=== PATIENT | male | born 1955 | race Caucasian/White ===

== ENCOUNTER 2019-08-02 07:38 | Inpatient (IN) | payer MEDICARE, OTHER, SELFPAY ==
[2019-08-02] VITALS (12 sets, daily range): BP systolic 106–139; BP diastolic 70–97; PULSE 45–83; RESP 14–20; TEMP 36.6–36.9; O2SAT 94–98; BMI 19.5
--- NOTE | ~2019-08-02 | MR_ITS ---
EXAMINATION: MR brain/brain stem wo/w con EXAM DATE: 08/02/2019 16:30 INDICATION: Altered level of awareness, infarction. TECHNIQUE: Magnetic resonance imaging (MRI) of the brain/brain stem obtained without contrast. Sagit linus T1, axial diffusion, gradient echo (T2*), T1, T2, FLAIR sequences obtained. Patient was then inj ected with 12 cc intravenous Multihance contrast. Axial and coronal postcontrast T1 weighted sequence s obtained. Comparison is made to prior examination from 03/23/2017. FINDINGS: There is large acute infarction in the right temporoparietal occipital lobes, with approxim ately 50% infarction of the right middle cerebral artery posterior distribution. There is small acute infarction in the left occipital lobe, likely at least several hours older than the larger right-edna ed infarction given that it is visible on the head CT which was obtained earlier same date. There is small old right frontoparietal lobe infarction. Mild to moderate microangiopathy and cerebral atrophy . No acute hemorrhage. IMPRESSION: 1. Large acute right MCA distribution infarction. 2. Small acute left BUSINESS DATA ANALYST distribution infarction. 3. Old small right frontoparietal infarction. 4. Age-related findings. Reviewed, dictated and finalized at location A.
--- NOTE | ~2019-08-02 | CT_ITS ---
EXAMINATION: CT brain wo con DATE: 08/02/2019 07:47 INDICATION: Left hemiparesis. TECHNIQUE: Computed tomography (CT) of the head was performed without intravenous contrast. The mA wa s adjusted according to patient size. Iterative reconstruction technique was employed. The dose-lengt h product was 605.33 mGy-cm. COMPARISON: Head CT 09/15/2018 FINDINGS: There is an old infarct in right frontoparietal region. There is an infarct in left occipit al lobe. There are scattered areas of low attenuation in the cerebral white matter. There is no intra cranial hemorrhage or abnormal mass lesion. The ventricles are normal in size. There is mild mucosal thickening in sphenoid sinus. The mastoid air cells are normal. The orbits are normal. IMPRESSION: 1. Infarct in left occipital lobe, likely acute. I called this result to Dr. Piper on 08/02/19 at 7:5 1 AM. 2. Old infarct in right frontoparietal region. 3. Mild nonspecific cerebral white matter disease, which likely represents chronic small vessel ische corinne disease. Reviewed, dictated and finalized at location A. IMPRESSION: 1. Infarct in left occipital lobe, likely acute. I called this result to Dr. Jai hall on 08/02/19 at 7:51 AM. 2. Old infarct in right frontoparietal region. 3. Mild nonspecific cerebral white matter disease, which likely represents cafeteria or lunchroom checker bell small vessel ischemic disease.
--- NOTE | ~2019-08-02 | XR_ITS ---
XR chest 1V portable DATE: 08/02/2019 08:27 INDICATION: Possible cerebrovascular accident TECHNIQUE: Portable upright AP chest on 08/02/2019 at 0824 hours COMPARISON: 09/15/2018 portable upright AP chest FINDINGS: vice president compliance device overlies the lower left chest. Heart size is not optimally evaluated on AP projection because of magnification. Aortic calcification and mild unfolding. Bilateral hyperinflation. No pulmonary infiltrate or consolidation, pleural effusion or pulmonary vas cular congestion or pneumothorax is evident. Diffuse osteopenia. IMPRESSION: No active disease Reviewed, dictated and finalized at location A. IMPRESSION: No active disease
--- NOTE | ~2019-08-02 | US_ITS ---
EXAMINATION: US carotid duplex BI DATE: 08/02/2019 15:14 INDICATION: Left hemiparesis. TECHNIQUE: Grayscale, color Doppler, and pulsed Doppler images of the cervical carotid arteries were obtained. The degree of vessel stenosis is placed in one of the following categories: normal, <50%, 5 0-69%, >=70% but less than near-occlusion, near-occlusion, or total occlusion. Note that percent sten osis relative to normal distal artery lumen diameter is indirectly measured from velocity measurement s as described by Shon, et al. Radiology 2003; [id number]:[id number]. COMPARISON: Ultrasound 03/23/2017 FINDINGS: RIGHT: The right common carotid artery (CCA) peak systolic velocity (PSV) is 68 cm/s. The right internal car otid artery (ICA) PSV is 65 cm/s. The right ICA end-diastolic velocity (EDV) is 23 cm/s. The right IC A/CCA PSV ratio is 1.0. Grayscale and color Doppler images yield an estimate of <50% diameter reducti on from plaque in the ICA. There is antegrade flow in the right vertebral artery. LEFT: The left CCA PSV is 70 cm/s. The left ICA PSV is 62 cm/s. The left ICA EDV is 22 cm/s. The left ICA/C CA PSV ratio is 0.9. Grayscale and color Doppler images yield an estimate of <50% diameter reduction from plaque in the ICA. There is antegrade flow in the left vertebral artery. IMPRESSION: 1. <50% stenosis in the right internal carotid artery. 2. <50% stenosis in the left internal carotid artery. Reviewed, dictated and finalized at location A.
--- NOTE | 2019-08-02 07:40 | ECG_ITS ---
Measurements Intervals [place] Rate: 49 P: 27 PA: 158 QRS: 7 QRSD: 105 T: 56 QT: 472 QTc: 428 Interpretive Statements SINUS BRADYCARDIA BASELINE ARTIFACT- I, III, AVL, AVF, V1-V2 ABNORMAL ECG Electronically Signed On 08-02-2019 8:53:39 CDT by Sorin Obrien D.O.
--- NOTE | 2019-08-02 07:59 | ED.NEUROSD ---
HPI - Neuro Symptoms/Deficit General Chief Complaint: Suspected CVA Stated Complaint: ?CVA Time Seen by Provider: 08/02/19 07:45 History of Present Illness HPI Narrative: Patient is a 64-year-old male who presents the ER with concerns of acute stroke. Patient has history of CVA and TIA in the past. He has some chronic left arm weakness since a stroke several years ago. He has been reporting to his significant other that he has been having some intermittent left arm weakness over the last 2 weeks more than typical. Last known normal was it 0 last night when patient got up to use the restroom. This morning patient awoke with a headache and was trying to open his tramadol bottle and could not perform the task. Patient has chronic headaches from his previous stroke. Patient significant other noticed that he could not recognize where she was in the room and proceeded to call EMS. Patient sees neurology here at [facility]. He is on Keppra for seizure disorder. Related Data Home Medications Medication Instructions Recorded Confirmed aspirin 325 mg tablet 325 mg PO DAILY 03/01/19 08/02/19 gabapentin 600 mg tablet 600 mg PO BID 03/01/19 08/02/19 levetiracetam 250 mg tablet See Rx Instructions .ROUTE .COMPLEX 03/01/19 08/02/19 sertraline 100 mg tablet 200 mg PO DAILY 03/01/19 08/02/19 simvastatin 40 mg tablet 40 mg PO DAILY 03/01/19 08/02/19 tamsulosin 0.4 mg capsule 0.4 mg PO DAILY 03/01/19 08/02/19 albuterol sulfate [ProAir HFA] 2 puff INHALATION Q4H PRN 08/02/19 08/02/19 aripiprazole 5 mg PO DAILY 08/02/19 08/02/19 tramadol 50 mg PO BID PRN 08/02/19 08/02/19 Allergies Allergy/AdvReac Type Severity Reaction Status Date / Time Penicillins Allergy Unknown unk Verified 08/02/19 08:15 Review of Systems Review of Systems: All systems reviewed & are unremarkable except as noted in HPI and below Neurologic: Reports headache(s) and Reports weakness (Chronic left side) Comments: Neglect worse on left than right [facility] Past Medical History Medical History (Updated 08/02/19 @ 17:12 by Rachel Talley PA-C) Benign prostatic hyperplasia Cerebrovascular accident (~03/2017) 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 Chronic obstructive pulmonary disease Degenerative disc disease Depression with anxiety Essential hypertension Gastroesophageal reflux disease Hyperlipidemia Seizure disorder (~07/2016) Tobacco abuse Surgical History Surgical History (Updated 08/02/19 @ 17:07 by Rachel Talley PA-C) History of inguinal hernia repair History of lumbar surgery (~03/2016) History of tonsillectomy History of vocal cord polypectomy Family History Family History Mother Hypertension Acute myocardial infarction Sibling Acute myocardial infarction Family history of lung cancer Father Acute myocardial infarction Social History Social History (Updated 08/02/19 @ 17:08 by Rachel Talley PA-C) Social History: The patient lives in [place] with his significant other. He is and has 5 children. 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 He smokes about half a pack of cigarettes per day and has for almost 50 years. He denies alcohol and illicit substance use. Years smoked: 40 Smoking status: Current every day smoker Tobacco type: cigarettes Second hand tobacco smoke exposure: No Smoking end date: 03/03/16 Alcohol intake: never Substance use: never Substance use type: does not use Gender identity (if verbalized by the patient): Male Spiritual care concerns: No Exam Narrative: Exam Narrative: GENERAL: Chronically ill-appearing, well-nourished, and in no acute distress. HEAD: Normocephalic, atraumatic. EYES: PERRL and EOMI. ENT: Mucous membranes moist. CHEST: Clear to auscultation. No respiratory distress. HEART: Bradycardic and regula
[2019-08-02 08:08] LABS: Glucose Point of Care 89 (65-105)
[2019-08-02 08:13] LABS: Basophils Absolute Auto 0.1 K/mm3 (0.0-0.1); Basophils Percent Auto 1.3 % (0.2-1.2); Eosinophils Absolute Auto 0.2 K/mm3 (0-0.3); Eosinophils Percent Auto 4.3 % (0-4.4); Hematocrit 43.9 % (42.0-52.0); Hemoglobin 14.5 g/dL (14.0-18.0); Immature Granulocyte Absolute 0.01 K/mm3 (0.00-0.031); Immature Granulocyte Percent A 0.2 % (0-0.5); Lymphocytes Absolute Auto 1.36 K/mm3 (0.9-3.2); Lymphocytes Percent Auto 24.4 % (18.3-44.2); Mean Corpuscular Volume 90.9 fl (80-100); Mean Platelet Volume 9.3 fl (7.4-10.4); Monocytes Absolute Auto 0.4 K/mm3 (0.1-0.6); Monocytes Percent Auto 7.5 % (2.6-8.5); Neutrophils Absolute Auto 3.5 K/mm3 (1.3-6.7); Neutrophils Percent Auto 62.3 % (45.5-73.1); Platelet Count Result 305 k/mm3 (150-375); Red Blood Count 4.83 M/mm3 (4.6-6.20); Red Cell Distribution Width 11.9 % (11.5-14.5); White Blood Count 5.6 K/mm3 (4.5-10.0)
[2019-08-02 08:21] LABS: Prothrombin Time 12.4 Seconds (11.1-14.7)
[2019-08-02 08:22] LABS: Partial Thromboplastin Time 27.5 SECONDS (22.3-36.8)
[2019-08-02 08:24] LABS: Blood Urea Nitrogen 13 mg/dL (9-20); Carbon Dioxide 29 mmol/L (22-30); Chloride 99 mmol/L (98-107); Estimated Glomerular Filt Rate > 60; Glucose 82 mg/dL (75-110); Potassium 4.1 mmol/L (3.4-5.0); Sodium 135 mmol/L (137-145)
[2019-08-02 08:36] LABS: Troponin I < 0.012 ng/mL (0.000-0.034)
[2019-08-02] MEDS: CLOPIDOGREL BISULFATE 75 MG TABLET PO (09:28)
[2019-08-02] MEDS: ASPIRIN 325 MG ENTERIC TABLET PO (09:28)
--- NOTE | 2019-08-02 10:50 | ADMGEN ---
This patient, Cem Osman, was admitted to Medical Room 252-. Patient/family oriented to hospital policies and general routines including ID bracelet, bed and alarms, visiting hours, pain management, procedures, bathroom and other care routines, personal items, smoking policy, room service/diet, and visiting hours. Valuables list has been completed. Information on how to activate the Rapid Response Team has been discussed. Patient/Family are encouraged to report perceived risks to care and to ask questions if they do not understand what they are told or what they should do.
--- NOTE | 2019-08-02 14:31 | CONS_ITS ---
DATE OF CONSULTATION: 08/02/2019 HISTORY OF PRESENT ILLNESS: A 64-year-old right-handed male has been admitted to [facility] through the emergency room, where he presented with complaint of possibility of the stroke. The patient has ongoing history of left upper extremity weakness since the last stroke several years ago, but he has been reporting to significant other that his left upper extremity is intermittently becoming more weak. His last known normal was 2130 last night when patient got up to use the restroom and also complained of the headache. He was trying to open his tramadol bottle, but could not perform the task. He was unable to recognize where he was in the room and EMS was called to the scene. He was brought to the hospital. MEDICATIONS: He has been takin. Aspirin 325 mg daily. 2. Gabapentin 600 mg 3 times a day. 3. Levetiracetam 250 mg twice a day. 4. Multivitamin 1 tablet daily. 5. Sertraline 100 mg 2 of them daily. 6. Simvastatin 40 mg daily. 7. Tamsulosin 0.4 mg daily. 8. Aripiprazole daily. 9. Tramadol b.i.d. on p.r.n. basis. He has history of smoking 50 years. At present, he is not smoking. From the emergency room, a call was placed to the [facility] for the possibility of TPIA and it was recommended not to give him tPA. PHYSICAL EXAMINATION: VITAL SIGNS: His vital signs were stable with temp of 98.5, pulse 50, respirations 16, blood pressure 113/83, pulse ox 98%. GENERAL: He was awake, alert, cooperative, in no obvious acute distress. HEENT: Head was normocephalic with no cranial bruit. Ear, nose, throat examination was normal. NECK: Supple with no cervical bruit. No thyromegaly. No lymphadenopathy. HEART: Regular. LUNGS: Clear. ABDOMEN: Soft. NEUROLOGICAL: He was awake, alert, able to follow the verbal commands. His speech was not dysphasic, not dysarthric, not dysphonic. Pupils were round and regular. Olivares of vision were abnormal with questionable right-sided visual field cut. In addition, his pupils were round and regular. Extraocular movements full. Face symmetrical. Tongue midline. Motor examination revealed him to have left-sided weakness with hyperreflexia, upgoing plantar response. LABORATORY DATA: WBC 5.6, hemoglobin 14.5, platelet count 305. Normal basic metabolic panel. He was admitted to the hospital for further evaluation. His INR was only 1.0 with APTT of 27.5. At the time of admission to the hospital, he was taking multiple medications as outlined above. Evaluation up until now included also the CT scan of the head, which documented the left occipital infarct, acute in nature in addition to the old infarct in the right frontoparietal region with nonspecific white matter disease. IMPRESSION: History of right frontoparietal stroke in the past with finding of the left occipital stroke at this particular time. The patient will need a CTA as well as the echocardiogram and most likely Cardiology consultation, if the echocardiogram is suggestive of some abnormalities. In the meantime, he has been started on clopidogrel 75 mg daily and aspirin was given 325 mg in the emergency room and will be continued as such for the time being. EMY ULLOA M.D. CLIENT BUSINESS MANAGER CLIENT BUSINESS MANAGER D I MT: Jammie
[2019-08-02 15:36] LABS: Glucose Point of Care 85 (65-105)
[2019-08-02] MEDS: TRAMADOL HCL 50 MG TABLET PO (16:41)
[2019-08-02] MEDS: GABAPENTIN 300 MG CAPSULE 600 MG PO (17:34)
--- NOTE | 2019-08-02 18:45 | PM.IMHP ---
H&P: HPI History of Present Illness Chief complaint: ?Possible stroke.? Narrative: Cem Osman is a 64-year-old male smoker with history of right frontoparietal CVA in March 2017 with unremarkable workup, seizure disorder, hypertension, hyperlipidemia, and COPD who presented to the emergency department earlier today with concerns of a possible stroke. He has chronic left upper extremity weakness since his stroke in March 2017, however he perceives it to be intermittently more weak than usual for the past 2 weeks or so. This morning he awoke with a headache and he notes having a difficult time at when trying to open a prescription bottle of tramadol. His girlfriend also notes that he seemed disoriented but he is alert and oriented x 4. At the time of my evaluation, he mentions a nonspecific headache that has apparently been present for 3 days. He does not seem forthcoming or perhaps he is having a difficult time expressing is complaints. For instance, he tells me that his left arm seems to know be back at baseline and says he has no other symptoms. Unfortunately, he seems to be neglecting his left side and cannot move his eyes even to midline. I did not have him walk but the nurses relay to me that he needed 2 people to assist him to the bathroom due to unsteady gait. Although physical exam contradicts this, he denies visual changes, vertigo, paresthesias, and worsening left upper extremity weakness. Review of Systems Review of Systems: Narrative: Twelve systems were reviewed with pertinent positives and negatives as per HPI. I am not certain these are very accurate, as he denies findings under obviously present. No fever, chills, or sweats. He denies recent cold and flu symptoms. He denies chest pain. No palpitations, feelings of irregular heartbeat, or history of cardiac dysrhythmia. He has a loop recorder in situ. No nausea, vomiting, or diarrhea. Denies dysuria. Except as documented, all other systems were reviewed and are negative. 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 Chronic obstructive pulmonary disease Degenerative disc disease Depression with anxiety Essential hypertension Gastroesophageal reflux disease Hyperlipidemia Seizure disorder (~07/2016) Tobacco abuse Surgical History Surgical History (Updated 08/02/19 @ 17:07 by Rachel Talley PA-C) History of inguinal hernia repair History of lumbar surgery (~03/2016) History of tonsillectomy History of vocal cord polypectomy Family History Family History Mother Hypertension Acute myocardial infarction Sibling Acute myocardial infarction Family history of lung cancer Father Acute myocardial infarction Social History Social History (Updated 08/02/19 @ 21:24 by Rachel Talley PA-C) Social History: The patient lives in [place] with his significant other. He is and has 5 children. 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 He smokes about 1/3 of a pack of cigarettes per day and has for almost 50 years. He denies alcohol and illicit substance use. He designates his girlfriend, Ann-Marie Hoang, as his surrogate decision maker and he wishes to be a do not resuscitate. Spiritual care concerns: No Meds Home Medications and Allergies Home Medications Medication Instructions Recorded Confirmed Type aspirin 325 mg tablet 325 mg PO DAILY 03/01/19 08/02/19 History gabapentin 600 mg tablet 600 mg PO BID 03/01/19 08/02/19 History levetiracetam 250 mg tablet See Rx Instructions .ROUTE .COMPLEX 03/01/19 08/02/19 History sertraline 100 mg tablet 200 mg PO DAILY 03/01/19 08/02/19 History simvastatin 40 mg tablet 40 mg PO DAILY 03/01/19 08/02/19 Hist
[2019-08-02] MEDS: levETIRAcetam 250 MG TABLET PO (21:00)
[2019-08-02] MEDS: FLUTICASONE PROP 110 MCG INHALER 12 GM (*SP) 1 PUFF INHALATION (21:09)
[2019-08-02] MEDS: levETIRAcetam 500 MG TABLET PO (21:12)
[2019-08-03] VITALS (13 sets, daily range): BP systolic 105–134; BP diastolic 63–86; PULSE 59–96; RESP 14–20; TEMP 36.8–37.6; O2SAT 95–98
--- NOTE | 2019-08-03 | ECHO_ITS ---
Patient Info Name: Cem Osman Age: 64 years : 1955 Gender: Male Ht: 74 in Wt: 152 lbs BSA: 1.88 m2 HR: 90 bpm BP: 134 / 86 mmHg Heart Rhythm: Sinus Rhythm Technical Quality: Poor Exam Date: 08/03/2019 10:28 AM Exam Location: [facility] Pulmonary Patient Status: Inpatient Admit Date: 08/02/2019 Staff Ordering Physician: Rachel Talley PA-C C4 Planner: Regis Sommers RDCS Attending Provider: Jose Rushing MD Referring Physician: Mayank MARIANO; Exam Type: CA echo doppler w bubble study Study Info Indications 436.0 - CVA Complete two-dimensional, color flow and Doppler transthoracic echocardiogram is performed with agitated saline. Contrast/Agitated Saline Contrast/Ag. Saline: Agitated Saline Amount: 18.00 ml Existing IV Access: Yes Reason for Poor Study: poor echocardiographic windows History/Risk Factors CVA, HTN, COPD. Summary 1. Normal left ventricular systolic function, EF estimated 60-65% with no focal wall motion abnormalities. Mild concentric left ventricular hypertrophy. Indeterminate diastolic function. 2. No significant valvular heart disease. 3. Probable atrial septal aneurysm present. I could not clearly see evidence of intracardiac shunting by bubble study, but the tech who did the study thought he did see a shunt during the injection. 4. Normal sinus rhythm. 5. Extremely technically difficult study, all images being subcostal, due to patinet's body habitus. Recommendations * Recommend GABE for further evaluation. Left Ventricle Left ventricular chamber dimension is normal. Left ventricular systolic function is normal, estimated at 60-65%. There is mildly increased left ventricular wall thickness. Left ventricular septal wall motion is normal. The left ventricular diastolic function is indeterminate. Right Ventricle Right ventricular chamber dimension is normal. Right ventricular systolic function is normal. Left Atria Left atrial chamber dimension is normal. Right Atria Right atrial chamber dimension is normal. Aortic Valve The aortic valve is trileaflet. There is no aortic valve sclerosis. There is no aortic valve stenosis. There is no aortic valve regurgitation. Pulmonic Valve The pulmonic valve is normal. There is no pulmonic valve stenosis. There is no pulmonic regurgitation. Mitral Valve The mitral valve has normal leaflets. There is no mitral valve stenosis. There is no mitral valve regurgitation. Tricuspid Valve The tricuspid valve leaflets are normal. There is no significant tricuspid valve stenosis. There is trace tricuspid valve regurgitation. No pulmonary hypertension, estimated pulmonary arterial systolic pressure is Empty. Pericardium/Pleural The pericardium appears normal. There is no pericardial effusion. Inferior Vena Cava Normal inferior vena cava with >50% collapse upon inspiration consistent with Empty right atrial pressure, 5 mmHg. Aorta The aortic root size at the sinus of Valsalva is normal. The prox ascending aorta size is normal. Tricuspid Valve Name Value Normal Estimated PAP/RSVP RA Pressure 5 mmHg
[2019-08-03] MEDS: ACETAMINOPHEN 325 MG TABLET 650 MG PO ×4 (00:54→20:15)
[2019-08-03] MEDS: TRAMADOL HCL 50 MG TABLET PO ×2 (04:55→17:31)
[2019-08-03 05:35] LABS: Alanine Aminotransferase 13 U/L (4-50); Albumin Level 4.3 g/dL (3.5-5.1); Alkaline Phosphatase 121 U/L (38-126); Aspartate Amino Transferase 21 U/L (17-59); Bilirubin,Total 0.5 mg/dL (0.2-1.3); Cholesterol 192 mg/dL (0-200); HDL Direct 50 mg/dL; Triglycerides 98 mg/dL (<150)
[2019-08-03 05:46] LABS: LDL Cholesterol Direct 112 mg/dL
[2019-08-03] MEDS: ASPIRIN 325 MG TABLET PO (07:53)
[2019-08-03] MEDS: SERTRALINE HCL 50 MG TABLET 200 MG PO (07:54)
[2019-08-03] MEDS: ARIPIPRAZOLE 5 MG TABLET PO (07:54)
[2019-08-03] MEDS: levETIRAcetam 500 MG TABLET PO ×2 (07:54→20:15)
[2019-08-03] MEDS: CLOPIDOGREL BISULFATE 75 MG TABLET PO (07:54)
[2019-08-03] MEDS: GABAPENTIN 300 MG CAPSULE 600 MG PO ×2 (07:54→17:31)
[2019-08-03] MEDS: SIMVASTATIN 20 MG TABLET 40 MG PO (07:55)
[2019-08-03] MEDS: TAMSULOSIN HCL 0.4 MG CAPSULE PO (07:55)
--- NOTE | 2019-08-03 09:11 | WPDNEUROPN ---
Progress Note: A&P Assessment and Plan (1) Benign prostatic hyperplasia: Code(s): N40.0 - Benign prostatic hyperplasia without lower urinary tract symptoms Status: Acute (2) Depression with anxiety: Code(s): F41.8 - Other specified anxiety disorders Status: Acute (3) Hyperlipidemia: Code(s): E78.5 - Hyperlipidemia, unspecified Status: Acute (4) Essential hypertension: Code(s): I10 - Essential (primary) hypertension Status: Acute (5) Acute cerebrovascular accident: Code(s): I63.9 - Cerebral infarction, unspecified Status: Acute (6) Tobacco abuse: Code(s): Z72.0 - Tobacco use Status: Acute (7) Chronic obstructive pulmonary disease: Qualifiers: COPD type: unspecified COPD Qualified Code(s): J44.9 - Chronic obstructive pulmonary disease, unspecified Code(s): J44.9 - Chronic obstructive pulmonary disease, unspecified Status: Acute (8) Seizure disorder: Onset Date: ~07/2016 Code(s): G40.909 - Epilepsy, unspecified, not intractable, without status epilepticus Status: Acute (9) Acute ischemic stroke: Code(s): I63.9 - Cerebral infarction, unspecified Status: Acute (10) BMI less than 19,adult: Code(s): Z68.1 - Body mass index (BMI) 19.9 or less, adult Status: Acute (11) COPD exacerbation: Code(s): J44.1 - Chronic obstructive pulmonary disease with (acute) exacerbation Status: Acute (12) Lung nodule: Code(s): R91.1 - Solitary pulmonary nodule Status: Acute (13) Nocturnal hypoxemia: Code(s): G47.34 - Idiopathic sleep related nonobstructive alveolar hypoventilation Status: Acute (14) Shortness of breath: Code(s): R06.02 - Shortness of breath Status: Acute Additional Plan will need echocardiogram and cardiology consult Review of Systems Review of Systems: All systems reviewed & are unremarkable except as noted in HPI and below Exam Const: General: cooperative, comfortable, no acute distress, alert and awake Nutritional Appearance: average body habitus Orientation/consciousness: oriented to person and oriented to place Limitations: physical limitations HENMT: Head: normal to inspection General nose exam: Normal external nose present and No nasal discharge present Face and sinus: normal facial exam Mouth: Yes Normal oral and palatal mucosa present Eyes: General: appearance normal, both eyes and all related structures Visual Olivares: abnormal by confrontation (left visual field cut) Alignment and Position: alignment normal and position normal Periorbital: periorbital findings normal Eyelids: eyelids normal Conjunctivae: conjunctivae normal Sclera: sclerae normal Cornea: corneas normal Pupils: Equal, round and reactive pupils present EOM: EOMs intact bilaterally Neck: Neck: full ROM Resp: Effort & Inspection: normal respiratory effort Auscultation: clear to auscultation bilaterally Cardio: Rate: regular rate Rhythm: regular rhythm GI: Auscultation: normal bowel sounds Skin: General skin exam: no rashes or lesions noted Neuro: General: oriented to person, oriented to place, moves all extremities and confusion Speech: normal speech Gait exam (Neuro): Unable to assess gait Motor exam (neuro): Abnormal motor strength present (left hemiparesis) Sensory Exam: Sensory deficit (Neuro) Deep tendon reflexes (DTR's): Right triceps reflex intensity grade: 1+, Left triceps reflex intensity grade: 2+, Rt Biceps (C5, C6): 1+, Left biceps reflex intensity grade: 2+, Right brachioradialis reflex intensity grade: 1+, Left brachioradialis reflex intensity grade: 2+, Right patellar reflex intensity grade: 1+, Left patellar reflex intensity grade: 2+, Right ankle reflex intensity grade: 1+ and Left ankle reflex intensity grade: 2+ Plantar Reflex Responses: downgoing: right and upgoing (positive Babinski): left Extrem: General: normal to
[2019-08-03] MEDS: FLUTICASONE PROP 110 MCG INHALER 12 GM (*SP) 1 PUFF INHALATION ×2 (09:42→20:15)
--- NOTE | 2019-08-03 10:07 | PM.CNCAR ---
Assessment and Plan Assessment and plan (1) Acute cerebrovascular accident: Code(s): I63.9 - Cerebral infarction, unspecified Status: Acute Assessment and Plan: 64-year-old male with history of stroke ,? seizure disorder, COPD, depression/anxiety, BPH. Patient presents with recurrent CVA. -continue dual antiplatelet therapy -continue statin -PT OT -management of CVA as per primary team and Neurology -echocardiogram with Doppler is pending. Based on echo findings, will determine the need for transesophageal echocardiogram. (2) Essential hypertension: Code(s): I10 - Essential (primary) hypertension Status: Acute Assessment and Plan: Blood pressure is mostly within normal limits (3) Tobacco abuse: Code(s): Z72.0 - Tobacco use Status: Acute Assessment and Plan: Smoking cessation History of Present Illness History of Present Illness Consult date/time: 08/03/19 10:07 date of service: 08/03/2019 reason for consult: Chief complaint: HPI: 64-year-old male with history of stroke ,? seizure disorder, COPD, depression/anxiety, BPH. Patient came to [facility] emergency room on 08/02/2019 with concerns for stroke. He has history of CVA and left-sided weakness. Apparently, patient had worsening of the left-sided weakness and came to the ER for further evaluation. His brain MRI showed Large acute right MCA distribution infarction, Small acute left CATHODE MAKER distribution infarction, Old small right frontoparietal infarction. Patient's EKG on this admission which I personally evaluated showed sinus bradycardia, heart rate 49 beats per minute, no acute ST segment abnormality. Patient denies any chest pain, shortness of breath, palpitations, dizziness or syncope. His previous echocardiogram from 07/21/2016 showed normal LVEF, Mild biatrial enlargement, mild MR, mild pulmonary hypertension. Repeat echocardiogram is pending. Serial troponins are negative. Reason For Visit: ?Possible stroke.? Review of Systems Constitutional: Constitutional: Denies chills, Denies fatigue, Denies fever(s) and Denies headache(s) Eyes: Eyes: Reports as per HPI, Denies change in vision, Denies loss of vision and Denies eye pain ENT: Reports as per HPI, Reports Normal hearing present, Denies headache(s), Denies lip swelling, Denies epistaxis and Denies sore throat Cardiovascular: Cardiovascular: Reports as per HPI, Denies chest pain, Denies syncope, Denies irregular heart rhythm, Denies lightheadedness and Denies dyspnea Respiratory: Respiratory: Reports as per HPI, Denies cough, Denies dyspnea and Denies wheezing Gastrointestinal: Gastrointestinal: Reports as per HPI, Denies abdominal pain, Denies melena, Denies nausea and Denies vomiting Genitourinary: Genitourinary: Reports as per HPI Musculoskeletal: Musculoskeletal: Reports as per HPI, Denies myalgias, Denies muscle cramps and Denies muscle weakness Integumentary/Breasts: Skin/Breast: Reports as per HPI, Denies pruritus and Denies rash Neurologic: Reports as per HPI, Reports Normal hearing present, Denies behavioral changes, Denies syncope, Reports headache(s) and Denies loss of vision Comments: Left-sided weakness Psychiatric: Psychiatric: Reports as per HPI, Denies anxiety, Denies behavioral changes and Denies depression Endocrine: Endocrine: Reports as per HPI, Denies fatigue, Denies polydipsia and Denies polyuria Hematologic/Lymphatic: Hematologic/Lymphatic: Reports as per HPI, Denies easy bleeding and Denies easy bruising Allergic/Immunologic: Allergic/Immunologic: Reports as per HPI, Denies lip swelling and Denies wheezing PMFSH Past Medical History Medical History Benign prostatic hyperplasia Cerebrovascular accident (~03/2017) 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 Chronic obstructive pulmonary disease Degenerative disc disease De
--- NOTE | 2019-08-03 11:15 | PC.NURSE ---
Updated patient's significant other Ann-Marie on plan of care for today, testing, and new orders for cardiology consult. All questions and concerns answered at this time.
--- NOTE | 2019-08-03 14:25 | P.PNIM_ITS ---
Progress Note: A&P Assessment and Plan (1) Acute cerebrovascular accident: Code(s): I63.9 - Cerebral infarction, unspecified Status: Acute Assessment and Plan: * Brain MRI shows a large acute right MCA distribution infarction any small acute left TEMPERER distribution infarction. * Carotid Doppler ultrasounds showed left and 50% stenosis in bilateral internal carotid arteries. * Echocardiogram with bubble study has been ordered. Interrogate loop recorder. * Continue aspirin, Plavix, and statin. * PT/OT/ST consulted (2) Seizure disorder: Onset Date: ~07/2016 Code(s): G40.909 - Epilepsy, unspecified, not intractable, without status epilepticus Status: Acute Assessment and Plan: * Continue Keppra. (3) Chronic obstructive pulmonary disease: Qualifiers: COPD type: unspecified COPD Qualified Code(s): J44.9 - Chronic obstructive pulmonary disease, unspecified Code(s): J44.9 - Chronic obstructive pulmonary disease, unspecified Status: Acute Assessment and Plan: * No acute issues. * Continue maintenance inhalers. (4) Essential hypertension: Code(s): I10 - Essential (primary) hypertension Status: Acute Assessment and Plan: * Blood pressures are well controlled. * Continue antihypertensives and monitor daily. (5) Hyperlipidemia: Code(s): E78.5 - Hyperlipidemia, unspecified Status: Acute Assessment and Plan: * Continue statin and are normal LFTs. (6) Benign prostatic hyperplasia: Code(s): N40.0 - Benign prostatic hyperplasia without lower urinary tract symptoms Status: Acute Assessment and Plan: * Continue tamsulosin. (7) Depression with anxiety: Code(s): F41.8 - Other specified anxiety disorders Status: Acute Assessment and Plan: * Continue aripiprazole and sertraline. (8) Tobacco abuse: Code(s): Z72.0 - Tobacco use Status: Acute Assessment and Plan: * Smoking cessation is encouraged and was discussed. * He declines need for nicotine patch. Subjective Date/time seen: Date of visit 08/03/19 . 64-year-old hypertensive white male COPD previous CVA admitted with increasing weakness left-sided. Noncardiac CTA showed no acute findings but MRI showed lower acute right cerebral infarction. Echocardiogram with bubble study still pending Exam Narrative: Exam Narrative: Blood pressure 114/70 pulse 76 afebrile Pupils equal reactive light sclera anicteric Lungs clear CV regular rate rhythm no murmurs Abdomen soft nontender no masses Extremities without edema distal pulses are 2+ Neuro alert conversant with no specific complaints Objective Data Vital Signs Vital Signs: Vital Signs - 24 hr 08/02/19 16:00 08/02/19 20:00 08/02/19 21:09 Temperature 36.9 C Pulse Rate 74 60 63 Respiratory Rate 18 18 20 Blood Pressure 127/88 Pulse Oximetry 97 96 08/02/19 22:00 08/03/19
--- NOTE | 2019-08-03 14:25 | PM.IMPN ---
Progress Note: A&P Assessment and Plan (1) Acute cerebrovascular accident: Code(s): I63.9 - Cerebral infarction, unspecified Status: Acute Assessment and Plan: Brain MRI shows a large acute right MCA distribution infarction any small acute left HYDRANT SETTER distribution infarction. Carotid Doppler ultrasounds showed left and 50% stenosis in bilateral internal carotid arteries. Echocardiogram with bubble study has been ordered. Interrogate loop recorder. Continue aspirin, Plavix, and statin. PT/OT/ST consulted (2) Seizure disorder: Onset Date: ~07/2016 Code(s): G40.909 - Epilepsy, unspecified, not intractable, without status epilepticus Status: Acute Assessment and Plan: Continue Keppra. (3) Chronic obstructive pulmonary disease: Qualifiers: COPD type: unspecified COPD Qualified Code(s): J44.9 - Chronic obstructive pulmonary disease, unspecified Code(s): J44.9 - Chronic obstructive pulmonary disease, unspecified Status: Acute Assessment and Plan: No acute issues. Continue maintenance inhalers. (4) Essential hypertension: Code(s): I10 - Essential (primary) hypertension Status: Acute Assessment and Plan: Blood pressures are well controlled. Continue antihypertensives and monitor daily. (5) Hyperlipidemia: Code(s): E78.5 - Hyperlipidemia, unspecified Status: Acute Assessment and Plan: Continue statin and are normal LFTs. (6) Benign prostatic hyperplasia: Code(s): N40.0 - Benign prostatic hyperplasia without lower urinary tract symptoms Status: Acute Assessment and Plan: Continue tamsulosin. (7) Depression with anxiety: Code(s): F41.8 - Other specified anxiety disorders Status: Acute Assessment and Plan: Continue aripiprazole and sertraline. (8) Tobacco abuse: Code(s): Z72.0 - Tobacco use Status: Acute Assessment and Plan: Smoking cessation is encouraged and was discussed. He declines need for nicotine patch. Subjective Date/time seen: Date of visit 08/03/19 . 64-year-old hypertensive white male COPD previous CVA admitted with increasing weakness left-sided. Noncardiac CTA showed no acute findings but MRI showed lower acute right cerebral infarction. Echocardiogram with bubble study still pending Exam Narrative: Exam Narrative: Blood pressure 114/70 pulse 76 afebrile Pupils equal reactive light sclera anicteric Lungs clear CV regular rate rhythm no murmurs Abdomen soft nontender no masses Extremities without edema distal pulses are 2+ Neuro alert conversant with no specific complaints Objective Data Vital Signs Vital Signs: Vital Signs - 24 hr 08/02/19 16:00 08/02/19 20:00 08/02/19 21:09 Temperature 36.9 C Pulse Rate 74 60 63 Respiratory Rate 18 18 20 Blood Pressure 127/88 Pulse Oximetry 97 96 08/02/19 22:00 08/03/19 00:00 08/03/19 02:00 Temperature 36.6 C 37.2 C Pulse Rate 60 73 86 Respiratory Rate 18 20 Blood Pressure 120/88 134/86 Pulse Oximetry 96 98 08/03/19 03:46 08/03/19 04:00 08/03/19 06:00 Temperature 36.9 C Pulse Rate 85 64 71 Respiratory Rate 18 18 Blood Pressure 134/86 118/75 Pulse Oximetry 98 96 08/03/19 08:00 08/03/19 10:00 Temperature 37.1 C Pulse Rate 69 76 Respiratory Rate 16 Blood Pressure 115/69 Pulse Oximetry 95 Intake/Output Intake/Output: Intake & Output 07/31/19 08/01/19 08/02/19 08/03/19 23:59 23:59 23:59 23:59 Intake Total
[2019-08-03] MEDS: levETIRAcetam 250 MG TABLET PO (20:14)
[2019-08-04] VITALS (15 sets, daily range): BP systolic 104–148; BP diastolic 44–87; PULSE 57–85; RESP 14–22; TEMP 36.7–37.6; O2SAT 92–100
[2019-08-04] MEDS: ACETAMINOPHEN 325 MG TABLET 650 MG PO ×3 (03:39→17:38)
[2019-08-04 05:03] LABS: Basophils Absolute Auto 0.1 K/mm3 (0.0-0.1); Basophils Percent Auto 0.5 % (0.2-1.2); Eosinophils Percent Auto 0.3 % (0-4.4); Hematocrit 42.8 % (42.0-52.0); Hemoglobin 14.7 g/dL (14.0-18.0); Immature Granulocyte Absolute 0.03 K/mm3 (0.00-0.031); Immature Granulocyte Percent A 0.3 % (0-0.5); Lymphocytes Absolute Auto 1.09 K/mm3 (0.9-3.2); Lymphocytes Percent Auto 10.2 % (18.3-44.2); Mean Corpuscular HGB Conc 34.3 g/dl (32-36); Mean Corpuscular Hemoglobin 29.9 pg (26-34); Mean Corpuscular Volume 87.2 fl (80-100); Mean Platelet Volume 9.3 fl (7.4-10.4); Monocytes Absolute Auto 0.8 K/mm3 (0.1-0.6); Monocytes Percent Auto 7.6 % (2.6-8.5); Neutrophils Absolute Auto 8.7 K/mm3 (1.3-6.7); Neutrophils Percent Auto 81.1 % (45.5-73.1); Platelet Count Result 298 k/mm3 (150-375); Red Blood Count 4.91 M/mm3 (4.6-6.20); Red Cell Distribution Width 11.5 % (11.5-14.5); White Blood Count 10.7 K/mm3 (4.5-10.0)
[2019-08-04 05:15] LABS: Blood Urea Nitrogen 21 mg/dL (9-20); Carbon Dioxide 20 mmol/L (22-30); Chloride 99 mmol/L (98-107); Estimated CRCL calculation 90 ml/min; Estimated Glomerular Filt Rate > 60; Glucose 85 mg/dL (75-110); Potassium 4.1 mmol/L (3.4-5.0); Sodium 132 mmol/L (137-145)
[2019-08-04] MEDS: TRAMADOL HCL 50 MG TABLET PO ×2 (07:19→20:11)
--- NOTE | 2019-08-04 09:02 | WPDNEUROPN ---
Progress Note: A&P Assessment and Plan (1) Benign prostatic hyperplasia: Code(s): N40.0 - Benign prostatic hyperplasia without lower urinary tract symptoms Status: Acute (2) Depression with anxiety: Code(s): F41.8 - Other specified anxiety disorders Status: Acute (3) Hyperlipidemia: Code(s): E78.5 - Hyperlipidemia, unspecified Status: Acute (4) Essential hypertension: Code(s): I10 - Essential (primary) hypertension Status: Acute (5) Acute cerebrovascular accident: Code(s): I63.9 - Cerebral infarction, unspecified Status: Acute (6) Tobacco abuse: Code(s): Z72.0 - Tobacco use Status: Acute (7) Chronic obstructive pulmonary disease: Qualifiers: COPD type: unspecified COPD Qualified Code(s): J44.9 - Chronic obstructive pulmonary disease, unspecified Code(s): J44.9 - Chronic obstructive pulmonary disease, unspecified Status: Acute (8) Seizure disorder: Onset Date: ~07/2016 Code(s): G40.909 - Epilepsy, unspecified, not intractable, without status epilepticus Status: Acute (9) Acute ischemic stroke: Code(s): I63.9 - Cerebral infarction, unspecified Status: Acute (10) BMI less than 19,adult: Code(s): Z68.1 - Body mass index (BMI) 19.9 or less, adult Status: Acute (11) COPD exacerbation: Code(s): J44.1 - Chronic obstructive pulmonary disease with (acute) exacerbation Status: Acute (12) Lung nodule: Code(s): R91.1 - Solitary pulmonary nodule Status: Acute (13) Nocturnal hypoxemia: Code(s): G47.34 - Idiopathic sleep related nonobstructive alveolar hypoventilation Status: Acute (14) Shortness of breath: Code(s): R06.02 - Shortness of breath Status: Acute Additional Plan awaiting [facility] recommendations once echo done Review of Systems Review of Systems: All systems reviewed & are unremarkable except as noted in HPI and below Exam Const: General: cooperative, comfortable, no acute distress, alert and awake Nutritional Appearance: average body habitus Orientation/consciousness: patient oriented x3 HENMT: Head: normal to inspection Eyes: General: appearance normal, both eyes and all related structures Visual Olivares: abnormal by confrontation Alignment and Position: alignment normal and position normal Periorbital: periorbital findings normal Eyelids: eyelids normal Conjunctivae: conjunctivae normal Sclera: sclerae normal Cornea: corneas normal Pupils: Equal, round and reactive pupils present EOM: EOMs intact bilaterally Neck: Neck: full ROM Resp: Effort & Inspection: normal respiratory effort Auscultation: clear to auscultation bilaterally Cardio: Rate: regular rate Rhythm: regular rhythm GI: Auscultation: normal bowel sounds Skin: General skin exam: no rashes or lesions noted Neuro: General: patient oriented x3 and moves all extremities Cognition (Neuro): normal cognition Speech: normal speech Gait exam (Neuro): Unable to assess gait Motor exam (neuro): Abnormal motor strength present (left hemiparetic) Sensory Exam: Sensory deficit (Neuro) Plantar Reflex Responses: downgoing: right and upgoing (positive Babinski): left Psych: Appearance: grossly normal Speech and movement: Normal speech and movement present Affect: normal affect Attitude: cooperative Thought content: Yes Normal thought content present Insight: Fair insight present (Psych) Judgement: Fair judgement present (Psych) Objective Data Vital Signs Vital Signs: Vital Signs - 24 hr 08/03/19 10:00 08/03/19 12:00 08/03/19 14:00 Temperature 37.1 C 37.6 C Pulse Rate 76 77 78 Respiratory Rate 16 16 Blood Pressure 115/69 105/63 Pulse Oximetry 95 95 08/03/19 16:00 08/03/19 18:00 08/03/19 20:00 Temperature 36.8 C 37.1 C Pulse Rate 59 L 62 67 Respiratory Rate 16 14 Blood Pressure 128/74 127/74 Pulse Oximetry 97 95
[2019-08-04] MEDS: FLUTICASONE PROP 110 MCG INHALER 12 GM (*SP) 1 PUFF INHALATION ×2 (09:24→20:35)
--- NOTE | 2019-08-04 10:01 | WPDMODSED ---
Moderate Sedation Note-Pt Data Patient Data Diagnosis: History of multiple strokes Present Complaint: Multiple strokes, possible PFO by surface Echo. Procedure to be performed/Plan: conscious sedation transesophageal echo Allergies Allergy/AdvReac Type Severity Reaction Status Date / Time Penicillins Allergy Unknown unk Verified 08/02/19 08:15 Home Medications Medication Instructions Recorded Confirmed Type aspirin 325 mg tablet 325 mg PO DAILY 03/01/19 08/02/19 History gabapentin 600 mg tablet 600 mg PO BID 03/01/19 08/02/19 History levetiracetam 250 mg tablet See Rx Instructions .ROUTE .COMPLEX 03/01/19 08/02/19 History sertraline 100 mg tablet 200 mg PO DAILY 03/01/19 08/02/19 History simvastatin 40 mg tablet 40 mg PO DAILY 03/01/19 08/02/19 History tamsulosin 0.4 mg capsule 0.4 mg PO DAILY 03/01/19 08/02/19 History umeclidinium 62.5 mcg-vilanterol 1 inhalation INHALATION DAILY 90 03/17/19 08/02/19 Rx 25 mcg/actuation powdr for Days #60 each inhalation fluticasone propionate 100 1 inhalation INHALATION Q12H #180 04/09/19 08/02/19 Rx mcg/actuation blister powder for each inhalation ropinirole 0.5 mg tablet 0.5 mg PO DAILY #90 tablet 05/19/19 08/02/19 Rx albuterol sulfate [ProAir HFA] 2 puff INHALATION Q4H PRN 08/02/19 08/02/19 History aripiprazole 5 mg PO DAILY 08/02/19 08/02/19 History tramadol 50 mg PO BID PRN 08/02/19 08/02/19 History Current Medications: Active Medications Acetaminophen (Tylenol Tablet) 650 mg PO Q4H PRN PRN Reason: Mild Pain (1-3) or Fever Last Admin: 08/04/19 03:39 Dose: 650 mg Documented by: Albuterol (Proventil Hfa) 2 puff INHALATION Q4H PRN PRN Reason: shortness of breath Aripiprazole (Abilify) 5 mg PO DAILY [facility] Last Admin: 08/03/19 07:54 Dose: 5 mg Documented by: Aspirin (Aspirin) 325 mg PO DAILY [facility] Last Admin: 06/02/20 07:53 Dose: 325 mg Documented by: Clopidogrel Bisulfate (Plavix) 75 mg PO QAM [facility] Last Admin: 08/03/19 07:54 Dose: 75 mg Documented by: Fluticasone Propionate (Flovent) 1 puff INHALATION Q12HRT [facility] Last Admin: 08/04/19 09:24 Dose: 1 puff Documented by: Gabapentin (Neurontin) 600 mg PO BID [facility] Last Admin: 08/03/19 17:31 Dose: 600 mg Documented by: Levetiracetam (Keppra Tablet) 500 mg PO Q12HR [facility] Last Admin: 08/03/19 20:15 Dose: 500 mg Documented by: Levetiracetam (Keppra Tablet) 250 mg PO HS [facility] Last Admin: 08/03/19 20:14 Dose: 250 mg Documented by: Ondansetron HCl (Zofran Inj) 4 mg IV PUSH Q4H PRN PRN Reason: Nausea Ropinirole HCl (Ropinirole Hcl) 0.5 mg PO Q24H [facility] Last Admin: 08/03/19 20:14 Dose: 0.5 mg Documented by: Sertraline HCl (Zoloft) 200 mg PO DAILY [facility] Last Admin: 08/03/19 07:54 Dose: 200 mg Documented by: Simvastatin (Zocor) 40 mg PO DAILY [facility] Last Admin: 08/03/19 07:55 Dose: 40 mg Documented by: Tamsulosin HCl (Flomax) 0.4 mg PO DAILY [facility] Last Admin: 08/03/19 07:55 Dose: 0.4 mg Documented by: Tramadol HCl (Ultram) 50 mg PO BID PRN PRN Reason: Pain 4-10 Last Admin: 08/04/19 07:19 Dose: 50 mg Documented by: Sedation/Anesthesia: No previous sedation/anesthesia problems (including family history). [facility] Past Medical History Medical History Benign prostatic hyperplasia Cerebrovascular accident (~03/2017) 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 Chronic obstructive pulmonary disease Degenerative disc disease Depression with anxiety Essential hypertension Gastroesophageal reflux disease Hyperlipidemia Seizure disorder (~07/2016) Tobacco abuse Surgical History Surgical History History of inguinal hernia repair History of lumbar surgery (~03/2016) History of tonsillectomy History of vocal cord polypectomy Family History Family History Mother Hypertension
--- NOTE | 2019-08-04 10:39 | P.PCNTEE_ITS ---
GABE TransEsophageal Echocardiogram Date of procedure: 08/04/19 Procedure Type: Conscious sedation Transesophageal echocardiogram with bubble study Diagnosis: Recurrent strokes Indications: Recurrent strokes Image Quality: Good Findings: Conscious sedation: Assessment: The patient has no history of anesthesia problems. The patient's oropharynx is clear. The patient was deemed to be a good candidate for conscious sedation. The patient had continuous hemodynamic and oximetric monitoring during the procedure. Start time: 1026 Completion time: 1042 Total conscious sedation time: 16 minutes Medications Used: Versed 3 mg IV push and fentanyl 150 mcg IV push Trained observer: Charu Gray RN Outcome: The patient tolerated the procedure well with no complications. Procedure: After informed consent the patient had Hurricaine spray the hypopharynx. The patient had conscious sedation as described above. The transesophageal echo probe was introduced in the esophagus without difficulty. Imaging was obtained in multiplane views. Agitated saline was injected to evaluate for intracardiac shunting. The patient tolerated the procedure well with no complications. Findings: The left atrium was normal. There is no thrombus present in the left atrium or left atrial appendage. The atrial septum was aneurysmal. Mitral valve appeared normal, with no stenosis or prolapse. The left ventricle had had normal size with good contractility of all segments. There is mild left ve ntricular hypertrophy. The ejection fraction is estimated to be: 60%. The aortic root and valve were normal. The ascending aorta, aortic arch and descending thoracic aorta were normal. The right atrium, tricuspid valve, right ventricle, pulmonic valve and pulmonic artery were all normal. There is no pericardial effusion. When agitated saline was injected intravenously there was a small amount of intracardiac shunting with a few bubble seen in the left atrium. Colorflow Doppler Findings: Trivial mitral regurgitation Conclusions: Atrial septal aneurysm with a small [id number] shunt present. Mild left ventricular hypertrophy with good left ventricular systolic function. No masses or thrombi seen Normal aorta are without significant atherosclerosis. Recommendations: Interrogation of the [employer] loop recorder has not shown any atrial fibrillation. The patient has multiple potential etiologies for stroke. He apparently has a mild amount of carotid disease, has hypertension, and smokes which are risk factors for stroke. He also has an atrial septal aneurysm with a very small shunt, which is a possible etiology as well. He has failed aspirin monotherapy. Recommend considering anticoagulation (plus-minus and anti-platelet agent) as an alternative to aspirin therapy. Could consider closure of the PFO as well, electively, although we can't be sure that the PFO is the etiology.
[2019-08-04] MEDS: SIMVASTATIN 20 MG TABLET 40 MG PO (11:02)
[2019-08-04] MEDS: CLOPIDOGREL BISULFATE 75 MG TABLET PO (11:02)
[2019-08-04] MEDS: TAMSULOSIN HCL 0.4 MG CAPSULE PO (11:02)
[2019-08-04] MEDS: SERTRALINE HCL 50 MG TABLET 200 MG PO (11:02)
[2019-08-04] MEDS: GABAPENTIN 300 MG CAPSULE 600 MG PO ×2 (11:02→17:38)
[2019-08-04] MEDS: ASPIRIN 325 MG TABLET PO (11:03)
[2019-08-04] MEDS: levETIRAcetam 500 MG TABLET PO ×2 (11:03→20:12)
[2019-08-04] MEDS: ARIPIPRAZOLE 5 MG TABLET PO (11:03)
--- NOTE | 2019-08-04 11:24 | PCSTNOTE ---
Please refer to the Bedside Swallow Evaluation in the EMR.
--- NOTE | 2019-08-04 12:42 | PM.IMPN ---
Progress Note: A&P Assessment and Plan (1) Acute cerebrovascular accident: Code(s): I63.9 - Cerebral infarction, unspecified Status: Acute Assessment and Plan: Brain MRI shows a large acute right MCA distribution infarction any small acute left SU[employer] distribution infarction. Carotid Doppler ultrasounds showed less than 50% stenosis in bilateral internal carotid arteries. Appreciate cardiology and neurology input. He has undergone GABE this afternoon at the bedside by Dr Orta. Today he remains on plavix, ASA, and statin. He may require anticoagulation with NOAC in 4 to 5 days when okay with neurology. PT/OT/ST consulted (2) Seizure disorder: Onset Date: ~07/2016 Code(s): G40.909 - Epilepsy, unspecified, not intractable, without status epilepticus Status: Chronic Assessment and Plan: Continue Keppra. (3) Chronic obstructive pulmonary disease: Qualifiers: COPD type: unspecified COPD Qualified Code(s): J44.9 - Chronic obstructive pulmonary disease, unspecified Code(s): J44.9 - Chronic obstructive pulmonary disease, unspecified Status: Chronic Assessment and Plan: No evidence of respiratory distress. Continue maintenance inhalers. (4) Essential hypertension: Code(s): I10 - Essential (primary) hypertension Status: Chronic Assessment and Plan: Blood pressures are well controlled. Continue monitoring BP. (5) Hyperlipidemia: Code(s): E78.5 - Hyperlipidemia, unspecified Status: Chronic Assessment and Plan: Continue statin therapy, LFTs normal. (6) Benign prostatic hyperplasia: Code(s): N40.0 - Benign prostatic hyperplasia without lower urinary tract symptoms Status: Chronic Assessment and Plan: Continue tamsulosin. (7) Depression with anxiety: Code(s): F41.8 - Other specified anxiety disorders Status: Acute Assessment and Plan: Stable. Continue aripiprazole and sertraline. (8) Tobacco abuse: Code(s): Z72.0 - Tobacco use Status: Acute Assessment and Plan: Smoking cessation is encouraged and was discussed. He declines need for nicotine patch. Subjective Date/time seen: 08/04/19 12:15 Interval history: Mr. Osman is a 64yo M admitted for acute CVA. He is awake and alert, oriented x3 but a little confused after GABE trying to get out of bed. He is able to see me but other toribio of vision are blurry. He notes a mild headache this afternoon. No chest pain or shortness of breath. No nausea or vomiting. Review of Systems Review of Systems: Narrative: Twelve systems were reviewed with pertinent positives and negatives as per HPI. Exam Narrative: Exam Narrative: General: Male resting comfortably in bed in no acute distress. HEENT: Normocephalic, PERRL. Cardiovascular: Rate and rhythm are regular. Respiratory: Lungs clear to auscultation. Abdomen: Soft, non-tender, non-distended, bowel sounds present. Extremities: Peripheral pulses intact. No edema. Neuro: Alert and oriented x 3; speech is clear. Objective Data Vital Signs Vital Signs: Last Vital Signs Temp 98.7 F 08/04/19 14:00 Pulse 64 08/04/19 14:00 Resp 16 08/04/19 14:00 BP 123/74 08/04/19 14:00 Pulse Ox 96 08/04/19 14:00 Intake/Output Intake/Output: Intake & Output 08/01/19 08/02/19 08/03/19 08/04/19 23:59 23:59 23:59 23:59 Intake Total 100 220 140 Output Total 551 Balance 100 -331 140 Meds/Results Medications: Acti
[2019-08-04] MEDS: levETIRAcetam 250 MG TABLET PO (20:13)
[2019-08-05] VITALS (7 sets, daily range): BP systolic 102–131; BP diastolic 66–83; PULSE 53–106; RESP 16–20; TEMP 36.9–37.6; O2SAT 94–100
[2019-08-05] MEDS: ACETAMINOPHEN 325 MG TABLET 650 MG PO ×3 (00:40→14:22)
[2019-08-05 05:27] LABS: Basophils Absolute Auto 0.1 K/mm3 (0.0-0.1); Basophils Percent Auto 0.7 % (0.2-1.2); Eosinophils Absolute Auto 0.1 K/mm3 (0-0.3); Eosinophils Percent Auto 1.6 % (0-4.4); Hematocrit 40.4 % (42.0-52.0); Hemoglobin 13.9 g/dL (14.0-18.0); Immature Granulocyte Absolute 0.04 K/mm3 (0.00-0.031); Immature Granulocyte Percent A 0.6 % (0-0.5); Lymphocytes Absolute Auto 1.53 K/mm3 (0.9-3.2); Lymphocytes Percent Auto 22.1 % (18.3-44.2); Mean Corpuscular HGB Conc 34.4 g/dl (32-36); Mean Corpuscular Volume 87.3 fl (80-100); Mean Platelet Volume 9.4 fl (7.4-10.4); Monocytes Absolute Auto 0.7 K/mm3 (0.1-0.6); Monocytes Percent Auto 9.7 % (2.6-8.5); Neutrophils Absolute Auto 4.5 K/mm3 (1.3-6.7); Neutrophils Percent Auto 65.3 % (45.5-73.1); Platelet Count Result 272 k/mm3 (150-375); Red Blood Count 4.63 M/mm3 (4.6-6.20); Red Cell Distribution Width 11.7 % (11.5-14.5); White Blood Count 6.9 K/mm3 (4.5-10.0)
[2019-08-05 05:40] LABS: Blood Urea Nitrogen 16 mg/dL (9-20); Calcium 9.1 mg/dL (8.4-10.2); Carbon Dioxide 29 mmol/L (22-30); Chloride 95 mmol/L (98-107); Estimated CRCL calculation 90 ml/min; Estimated Glomerular Filt Rate > 60; Glucose 94 mg/dL (75-110); Magnesium 1.9 mg/dL (1.6-2.3); Potassium 3.9 mmol/L (3.4-5.0); Sodium 131 mmol/L (137-145)
--- NOTE | 2019-08-05 08:57 | PM.PNCARD ---
Progress Note: A&P Assessment and Plan (1) Acute cerebrovascular accident: Code(s): I63.9 - Cerebral infarction, unspecified Status: Acute Assessment and Plan: MRI showed: Large acute right MCA distribution infarction, Small acute left MEDICAL SURGERY NURSE distribution infarction, Old small right frontoparietal infarction. Stroke occurred while taking aspirin Hoping to go to rehab soon. Multiple possible etiologies. 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 The shunt appears very small by GABE, however we were not able to have him Valsalva during the procedure because of his sedation so it could be larger at times. He also has hypertension, smokes and has some mild carotid disease. Recommend anticoagulation when okay with Neurology. Any NOAC will be fine. Consider closure of the PFO depending on the patient's situation after rehab etc. Continue statin. (2) Patent foramen ovale: Code(s): Q21.1 - Atrial septal defect Status: Acute Assessment and Plan: PFO with atrial septal aneurysm as above (3) Essential hypertension: Code(s): I10 - Essential (primary) hypertension Status: Chronic Assessment and Plan: Blood pressure is doing fine, try to avoid hypotension. Currently not on any antihypertensives. (4) Hyperlipidemia: Code(s): E78.5 - Hyperlipidemia, unspecified Status: Chronic Assessment and Plan: Taking simvastatin (5) Tobacco abuse: Code(s): Z72.0 - Tobacco use Status: Acute Assessment and Plan: Encouraged smoking cessation Subjective Date/time seen: 08/05/19 08:57 64-year-old male with recurrent stroke. Follow-up for stroke, Hypertension and PFO The the service: 08/05/2019 Patient GABE yesterday revealed a very small PFO so that as the possible etiology of his stroke. Today he still is having headache, left-sided weakness and visual problems. No history of any GI bleeding. Interrogation of the patient's loop recorder did not show any atrial fibrillation. Review of Systems Constitutional: Constitutional: Reports weakness Eyes: Eyes: Reports blurry vision ENT: Denies epistaxis Cardiovascular: Cardiovascular: Denies chest pain, Denies pedal edema and Denies palpitations Respiratory: Respiratory: Denies dyspnea and Denies dyspnea on exertion Gastrointestinal: Gastrointestinal: Denies abdominal pain Musculoskeletal: Musculoskeletal: Denies arthralgias Integumentary/Breasts: Skin/Breast: Denies rash Neurologic: Reports headache(s) Psychiatric: Psychiatric: Reports behavioral changes Exam Const: General: comfortable and no acute distress HENMT: Mouth: Yes dry mucous membranes Eyes: EOM: EOM not intact bilaterally (Rightward gaze) Neck: Neck: supple Resp: Effort & Inspection: normal respiratory effort Auscultation: clear to auscultation bilaterally Cardio: Rate: regular rate Rhythm: regular rhythm Heart sounds: no murmurs GI: Auscultation: normal bowel sounds Skin: General skin exam: normal color Neuro: Speech: normal speech Motor exam (neuro): Abnormal motor strength present (Left-sided weakness) Extrem: Right lower extremity: no edema Left lower extremity: no edema Psych: Affect: normal affect (May have a little cognitive deficit) Objective Data Vital Signs Vital Signs: Vital Signs - 24 hr 08/04/19 10:15 08/04/19 10:25 08/04/19 10:30 Temperature 98.1 F Pulse Rate 77 70 82 Respiratory Rate 20 16 18 Blood Pressure 135/87 141/84 H 148/70 H Pulse Oximetry 98 100 92 08/04/19 10:35 08/04/19 10:40 08/04/19 10:45 Temperature Pulse Rate 71 77 70 Respiratory Rate 16 16 14 Blood Pressure 121/75 104/80 114/74 Pulse Oximetry 97 98 99 08/04/19 11:00 08/04/19 12:00 08/04/19 14:00 Tem
--- NOTE | 2019-08-05 09:20 | PC.NURSE ---
Spoke with patient's significant other Ann-Marie via telephone. Updated her on patient's current status, pain control, discharge planning and plan of care for the day. All questions and concerns answered at this time.
[2019-08-05] MEDS: FLUTICASONE PROP 110 MCG INHALER 12 GM (*SP) 1 PUFF INHALATION (09:23)
[2019-08-05] MEDS: CLOPIDOGREL BISULFATE 75 MG TABLET PO (09:25)
[2019-08-05] MEDS: ARIPIPRAZOLE 5 MG TABLET PO (09:25)
[2019-08-05] MEDS: ASPIRIN 325 MG TABLET PO (09:25)
[2019-08-05] MEDS: GABAPENTIN 300 MG CAPSULE 600 MG PO (09:25)
[2019-08-05] MEDS: SIMVASTATIN 20 MG TABLET 40 MG PO (09:26)
[2019-08-05] MEDS: SERTRALINE HCL 50 MG TABLET 200 MG PO (09:26)
[2019-08-05] MEDS: TAMSULOSIN HCL 0.4 MG CAPSULE PO (09:26)
[2019-08-05] MEDS: levETIRAcetam 500 MG TABLET PO (09:26)
[2019-08-05] MEDS: TRAMADOL HCL 50 MG TABLET PO (09:26)
--- NOTE | 2019-08-05 12:16 | WPDNEURORHBP ---
Subjective Date/time seen: bihemispheric htseye49/04/20 12:16 Review of Systems Review of Systems: All systems reviewed & are unremarkable except as noted in HPI and below Functional Status Ambulation Ability Ambulation Assistive Devices: Walker, Wheeled Exam Const: General: comfortable and no acute distress Nutritional Appearance: average body habitus Orientation/consciousness: oriented to person, oriented to place, oriented to time and patient oriented x3 Limitations: no limitations HENMT: Head: normal to inspection Eyes: General: appearance normal, both eyes and all related structures Periorbital: periorbital findings normal Conjunctivae: conjunctivae normal Sclera: sclerae normal Cornea: corneas normal Pupils: Equal, round and reactive pupils present EOM: EOMs intact bilaterally Direct Ophthalmoscopy: normal light reflex Neck: Neck: normal visual inspection, full ROM and no lymphadenopathy Lymphatic: no lymphadenopathy noted Resp: Effort & Inspection: normal respiratory effort and able to speak in complete sentences Auscultation: clear to auscultation bilaterally Cardio: Rate: regular rate Rhythm: regular rhythm GI: Auscultation: normal bowel sounds Skin: General skin exam: no rashes or lesions noted Neuro: General: oriented to person, oriented to place, oriented to time, patient oriented x3 and moves all extremities Cognition (Neuro): normal cognition Speech: normal speech Motor exam (neuro): Abnormal motor strength present (left hemiparesis) Plantar Reflex Responses: downgoing: right and upgoing (positive Babinski): left Objective Data Vital Signs Vital Signs: Vital Signs - 24 hr 08/04/19 14:00 08/04/19 18:00 08/04/19 20:00 Temperature 37.1 C 37.0 C Pulse Rate 64 70 72 Respiratory Rate 16 16 Blood Pressure 123/74 108/71 Pulse Oximetry 96 94 08/04/19 20:53 08/05/19 00:00 08/05/19 04:00 Temperature 37.6 C 37.3 C 37.0 C Pulse Rate 84 65 104 H Respiratory Rate 22 H 20 18 Blood Pressure 127/77 121/67 121/66 Pulse Oximetry 95 99 100 08/05/19 08:00 08/05/19 09:44 08/05/19 10:00 Temperature 36.9 C Pulse Rate 53 L 60 Respiratory Rate 16 Blood Pressure 131/83 Pulse Oximetry 95 98 Intake/Output Intake/Output: Intake & Output 08/02/19 08/03/19 08/04/19 08/05/19 23:59 23:59 23:59 23:59 Intake Total 100 220 680 400 Output Total 551 350 Balance 100 -331 680 50 Meds/Results Medications: Active Medications Generic Name Dose Route Start Last Admin Trade Name Freq PRN Reason Stop Dose Admin Acetaminophen 650 mg 08/02/19 08:52 08/05/19 06:47 Tylenol Tablet PO 650 mg Q4H PRN Administration Mild Pain (1-3) or Fever Albuterol 2 puff 08/02/19 15:56 Proventil Hfa INHALATION Q4H PRN shortness of breath Aripiprazole 5 mg 08/03/19 09:00 08/05/19 09:25 Abilify PO 5 mg DAILY SHANNON Administration Aspirin 325 mg 08/03/19 09:00 08/05/19 09:25 Aspirin PO 325 mg DAILY SHANNON Administration Clopidogrel Bisulfate 75 mg 08/03/19 09:00 08/05/19 09:25 Plavix PO 75 mg QAM SHANNON Administration Fluticasone Propionate 1 puff 08/02/19 20:00 08/05/19 09:23 Flovent INHALATION 1 puff Q12HRT SHANNON Administration Gabapentin 600 mg 08/02/19 17:00 08/05/19 09:25 Neurontin PO 600 mg BID SHANNON Administration Levetiracetam 500 mg 08/02/19 21:00 08/05/19 09:26 Keppra Tablet PO 500 mg Q12HR SHANNON Administration Levetiracetam 250 mg 08/02/19 21:00 08/04/19 20:13 Keppra Tablet PO 250 mg HS SHANNON Administration Ondansetron HCl 4 mg 08/02/19 08:52 Zofran Inj IV PUSH Q4H PRN Nausea Ropinirole HCl 0.5 mg 08/02/19 20:00 08/04/19 20:12 Ropinirole Hcl PO 0.5 mg Q24H SHANNON Administration Sertraline HCl 200 mg 08/03/19 09:00 08/05/19 09:26 Zoloft PO 200 mg DAILY SHANNON Administration Simvastatin 40 mg 08/03/19 09:00 08/05/19 09:26 Zocor PO 40 mg DAILY S
--- NOTE | 2019-08-05 15:00 | PC.NURSE ---
Report called to MOOKIE Arzola in [facility]. All questions and concerns answered at this time.
--- NOTE | 2019-08-05 15:15 | PC.NURSE ---
Patient discharged to [facility] via hospital bed with discharge instructions, belongings, and home inhaler.
--- NOTE | 2019-08-05 18:29 | P.DS_ITS ---
DS: Admitting Diagnosis Admitting Diagnosis Admitting Diagnosis: Cerebral infarction, unspecified DS: Discharge Diagnosis Discharge Diagnosis (1) Acute cerebrovascular accident: Code(s): I63.9 - Cerebral infarction, unspecified Status: Acute Assessment and Plan: * Brain MRI shows a large acute right MCA distribution infarction any small acute left SUPER[employer]ING [employer]PLANE PILOT distribution infarction. * Carotid Doppler ultrasounds showed less than 50% stenosis in bilateral internal carotid arteries. * GABE small PFO but could not demonstrate shot. * Today he remains on plavix, ASA, and statin. He may require anticoagulation with NOAC in 4 to 5 days when okay with neurology. Because cardiology feels that it could definitely be embolic phenomena with both hemispheres affected * Will transfer to [facility] for further rehab (2) Seizure disorder: Onset Date: ~07/2016 Code(s): G40.909 - Epilepsy, unspecified, not intractable, without status epilepticus Status: Chronic Assessment and Plan: * Continue Keppra. (3) Chronic obstructive pulmonary disease: Qualifiers: COPD type: unspecified COPD Qualified Code(s): J44.9 - Chronic obstructive pulmonary disease, unspecified Code(s): J44.9 - Chronic obstructive pulmonary disease, unspecified Status: Chronic Assessment and Plan: * No evidence of respiratory distress. * Continue maintenance inhalers. (4) Essential hypertension: Code(s): I10 - Essential (primary) hypertension Status: Chronic Assessment and Plan: * Blood pressures are well controlled. Continue monitoring BP. On no medication (5) Hyperlipidemia: Code(s): E78.5 - Hyperlipidemia, unspecified Status: Chronic Assessment and Plan: * Continue statin therapy, LFTs normal. (6) Benign prostatic hyperplasia: Code(s): N40.0 - Benign prostatic hyperplasia without lower urinary tract symptoms Status: Chronic Assessment and Plan: * Continue tamsulosin. (7) Depression with anxiety: Code(s): F41.8 - Other specified anxiety disorders Status: Acute Assessment and Plan: * Stable. Continue aripiprazole and sertraline. (8) Tobacco abuse: Code(s): Z72.0 - Tobacco use Status: Acute Assessment and Plan: * Smoking cessation is encouraged and was discussed. * He declines need for nicotine patch. DS: Summary Hospital Course Hospital Course: 64-year-old male with previous seizure and CVA admitted with altered mental status. Initial exam suggested right-sided CVA but CT showed no acute changes. MR revealed acute right and left hemispheric lesion primarily right. Echo showed probable PFO and Cardiology perform GABE which confirmed that with no thrombus seen. Cardiology felt that he should be on long-term full anticoagulation due to the bihemispheric infarcts and probable likelihood of embolic phenomena With seen by PT OT and transferred to [facility] for further rehabilitation Initially on aspirin and Plavix and low-dose Lovenox to possibly transition to full dose anticoagulation in the
--- NOTE | 2019-08-05 18:29 | PM.DS ---
DS: Admitting Diagnosis Admitting Diagnosis Admitting Diagnosis: Cerebral infarction, unspecified DS: Discharge Diagnosis Discharge Diagnosis (1) Acute cerebrovascular accident: Code(s): I63.9 - Cerebral infarction, unspecified Status: Acute Assessment and Plan: Brain MRI shows a large acute right MCA distribution infarction any small acute left MAT ROLLER distribution infarction. Carotid Doppler ultrasounds showed less than 50% stenosis in bilateral internal carotid arteries. GABE small PFO but could not demonstrate shot. Today he remains on plavix, ASA, and statin. He may require anticoagulation with NOAC in 4 to 5 days when okay with neurology. Because cardiology feels that it could definitely be embolic phenomena with both hemispheres affected Will transfer to [facility] for further rehab (2) Seizure disorder: Onset Date: ~07/2016 Code(s): G40.909 - Epilepsy, unspecified, not intractable, without status epilepticus Status: Chronic Assessment and Plan: Continue Keppra. (3) Chronic obstructive pulmonary disease: Qualifiers: COPD type: unspecified COPD Qualified Code(s): J44.9 - Chronic obstructive pulmonary disease, unspecified Code(s): J44.9 - Chronic obstructive pulmonary disease, unspecified Status: Chronic Assessment and Plan: No evidence of respiratory distress. Continue maintenance inhalers. (4) Essential hypertension: Code(s): I10 - Essential (primary) hypertension Status: Chronic Assessment and Plan: Blood pressures are well controlled. Continue monitoring BP. On no medication (5) Hyperlipidemia: Code(s): E78.5 - Hyperlipidemia, unspecified Status: Chronic Assessment and Plan: Continue statin therapy, LFTs normal. (6) Benign prostatic hyperplasia: Code(s): N40.0 - Benign prostatic hyperplasia without lower urinary tract symptoms Status: Chronic Assessment and Plan: Continue tamsulosin. (7) Depression with anxiety: Code(s): F41.8 - Other specified anxiety disorders Status: Acute Assessment and Plan: Stable. Continue aripiprazole and sertraline. (8) Tobacco abuse: Code(s): Z72.0 - Tobacco use Status: Acute Assessment and Plan: Smoking cessation is encouraged and was discussed. He declines need for nicotine patch. DS: Summary Hospital Course Hospital Course: 64-year-old male with previous seizure and CVA admitted with altered mental status. Initial exam suggested right-sided CVA but CT showed no acute changes. MR revealed acute right and left hemispheric lesion primarily right. Echo showed probable PFO and Cardiology perform GABE which confirmed that with no thrombus seen. Cardiology felt that he should be on long-term full anticoagulation due to the bihemispheric infarcts and probable likelihood of embolic phenomena With seen by PT OT and transferred to [facility] for further rehabilitation Initially on aspirin and Plavix and low-dose Lovenox to possibly transition to full dose anticoagulation in the near future Time Spent with Patient Time attestation: Total time spent providing and/or coordinating discharge services: 35 minutes Exam Narrative: Exam Narrative: Condition on discharge Blood pressure 102/72 pulse is 90 saturating 94% on room air Lungs clear CV regular rate rhythm Abdomen is soft nontender Extremities without edema distal pulses 1+ Neuro still difficulty gazing to the left past midline and still some lef
== END 2019-08-05 15:15 | DRG 65 ==
LOC: ANHED 09:00 → ANH2MED 10:07
PROVIDERS: Internal Medicine Cardiovascular Disease; Physician Assistant; Admitting Provider Family Medicine; Emergency Provider Emergency Medicine; Visit Provider Internal Medicine
PROC: B24BZZ4 Ultrasonography of Heart with Aorta, Transesophageal (ICD-10-PCS; CPT 93312; principal; 2019-08-04 10:00)
DX: I63.9 Cerebral infarction, unspecified (principal); Q21.1 Atrial septal defect; E78.5 Hyperlipidemia, unspecified; R29.704 NIHSS score 4; G40.909 Epilepsy, unspecified, not intractable, without status epilepticus; J44.9 Chronic obstructive pulmonary disease, unspecified; I10 Essential (primary) hypertension; N40.0 Benign prostatic hyperplasia without lower urinary tract symptoms; F41.8 Other specified anxiety disorders; F17.210 Nicotine dependence, cigarettes, uncomplicated; K21.9 Gastro-esophageal reflux disease without esophagitis; Z66 Do not resuscitate; I69.334 Monoplegia of upper limb following cerebral infarction affecting left non-dominant side; Z79.82 Long term (current) use of aspirin; Z79.899 Other long term (current) drug therapy
CPT/HCPCS: 36415; 70450; 70553; 71045; 80048; 80061; 80076; 82948; 83735; 84484; 85025; 85610; 85730; 92610; 93005; 93306; 93312; 93320; 93325; 93880; 94640; 96375; 97110; 97116; 97162; 97166; 97530; 97535; 99285; A9270; A9577; J2250; J3010

== ENCOUNTER 2019-08-05 15:15 | IRF | payer MEDICARE, OTHER, SELFPAY ==
--- NOTE | ~2019-08-05 | US_ITS ---
EXAMINATION: US venous doppler [facility] DATE: 08/16/2019 15:23 INDICATION: Stroke with small patent foramen ovale TECHNIQUE: Grayscale ultrasound images without and with compression and Doppler ultrasound images of the bilateral lower extremity veins were obtained. COMPARISON: None. FINDINGS: The visualized portions of right common femoral vein, profunda (deep) femoral vein, femoral vein, pop liteal vein, posterior tibial veins, peroneal veins, gastrocnemius vein and greater saphenous vein ou tflow are patent. The visualized portions of left common femoral vein, profunda femoral vein, femoral vein, popliteal v ein, posterior tibial veins, peroneal veins, gastrocnemius vein and greater saphenous vein outflow ar e patent. IMPRESSION: 1. No deep venous thrombosis in either lower limb. Reviewed, dictated and finalized at location A.
[2019-08-05 15:15] VITALS: BP 116/70; PULSE 78; RESP 20; TEMP 37.7; O2SAT 95
--- NOTE | 2019-08-05 15:42 | ADMGEN ---
This patient, Cem Osman, was admitted to [facility] Room 225-02. Patient/family oriented to hospital policies and general routines including ID bracelet, bed and alarms, visiting hours, pain management, procedures, bathroom and other care routines, personal items, smoking policy, room service/diet, and visiting hours. Valuables list has been completed. Information on how to activate the Rapid Response Team has been discussed. Patient/Family are encouraged to report perceived risks to care and to ask questions if they do not understand what they are told or what they should do.
[2019-08-05] MEDS: TRAMADOL HCL 50 MG TABLET PO (18:15)
[2019-08-05] MEDS: DOCUSATE SODIUM 100 MG CAPSULE PO (21:26)
[2019-08-05] MEDS: GABAPENTIN 300 MG CAPSULE 600 MG PO (21:27)
[2019-08-05] MEDS: levETIRAcetam 250 MG TABLET 750 MG PO (21:28)
[2019-08-05 22:00] VITALS: BP 114/79; PULSE 75; RESP 18; TEMP 37.1; O2SAT 91
[2019-08-06] MEDS: TRAMADOL HCL 50 MG TABLET PO ×2 (01:34→07:56)
[2019-08-06 04:35] LABS: Basophils Absolute Auto 0.1 K/mm3 (0.0-0.1); Basophils Percent Auto 0.9 % (0.2-1.2); Eosinophils Absolute Auto 0.1 K/mm3 (0-0.3); Eosinophils Percent Auto 1.6 % (0-4.4); Hematocrit 38.2 % (42.0-52.0); Hemoglobin 13.3 g/dL (14.0-18.0); Immature Granulocyte Absolute 0.01 K/mm3 (0.00-0.031); Immature Granulocyte Percent A 0.1 % (0-0.5); Lymphocytes Absolute Auto 1.32 K/mm3 (0.9-3.2); Lymphocytes Percent Auto 19.2 % (18.3-44.2); Mean Corpuscular HGB Conc 34.8 g/dl (32-36); Mean Corpuscular Hemoglobin 29.8 pg (26-34); Mean Corpuscular Volume 85.5 fl (80-100); Monocytes Absolute Auto 0.8 K/mm3 (0.1-0.6); Monocytes Percent Auto 10.9 % (2.6-8.5); Neutrophils Absolute Auto 4.6 K/mm3 (1.3-6.7); Neutrophils Percent Auto 67.3 % (45.5-73.1); Platelet Count Result 272 k/mm3 (150-375); Red Blood Count 4.47 M/mm3 (4.6-6.20); Red Cell Distribution Width 11.4 % (11.5-14.5); White Blood Count 6.9 K/mm3 (4.5-10.0)
[2019-08-06 04:46] LABS: Blood Urea Nitrogen 15 mg/dL (9-20); Calcium 8.8 mg/dL (8.4-10.2); Carbon Dioxide 25 mmol/L (22-30); Chloride 99 mmol/L (98-107); Cholesterol 154 mg/dL (0-200); Estimated Glomerular Filt Rate > 60; Glucose 90 mg/dL (75-110); HDL Direct 42 mg/dL; Potassium 3.5 mmol/L (3.4-5.0); Sodium 131 mmol/L (137-145); Triglycerides 105 mg/dL (<150)
[2019-08-06 04:57] LABS: LDL Cholesterol Direct 84 mg/dL
[2019-08-06 06:00] VITALS: BP 121/81; PULSE 81; RESP 18; TEMP 36.7; O2SAT 93
[2019-08-06] MEDS: ARIPIPRAZOLE 5 MG TABLET PO (09:36)
[2019-08-06] MEDS: DOCUSATE SODIUM 100 MG CAPSULE PO ×2 (09:36→20:07)
[2019-08-06] MEDS: SERTRALINE HCL 50 MG TABLET 200 MG PO (09:37)
[2019-08-06] MEDS: CLOPIDOGREL BISULFATE 75 MG TABLET PO (09:37)
[2019-08-06] MEDS: TAMSULOSIN HCL 0.4 MG CAPSULE PO (09:37)
[2019-08-06] MEDS: SIMVASTATIN 20 MG TABLET 40 MG PO (09:37)
[2019-08-06] MEDS: ASPIRIN 325 MG TABLET PO (09:37)
[2019-08-06] MEDS: ENOXAPARIN 40 MG/0.4 ML SYRINGE SUB-Q (09:38)
[2019-08-06] MEDS: GABAPENTIN 300 MG CAPSULE 600 MG PO ×2 (09:38→20:06)
[2019-08-06] MEDS: levETIRAcetam 250 MG TABLET 500 MG PO (09:38)
--- NOTE | 2019-08-06 12:00 | WPDREHABHP ---
H&P: HPI History of Present Illness Chief complaint: CVA Narrative: Cem Osman is a 64 year old male HISTORY OF PRESENT ILLNESS: The patient's primary rehab impairment category is 0 1 stroke The etiologic diagnosis is large acute right middle cerebral artery distribution infarction I saw this patient [id number] on August 06, 2019 at 12 noon The patient is a 64-year-old white male with a prior medical history of tobacco abuse, right frontoparietal CVA in March of 2017 with unremarkable workup, seizure disorder on Keppra, hypertension, hyperlipidemia and COPD who presented to [facility] Emergency Department on August 02, 2019 with concern of possible stroke. The patient reported that he awoke with a headache and had difficulty trying to open prescription bottle. The patient reported that he had mild left upper extremity weakness since his stroke in March 2017 however he feels that his left side was much weaker over the previous 2 weeks. His significant other also noted that he seemed disoriented. The head CT showed infarct in the left occipital lobe likely acute and old infarct in the right frontoparietal region. Chest x-ray showed no active disease. Carotid Doppler showed less than 50% stenosis in the right left carotid artery. Brain MRI revealed large acute right middle cerebral artery distribution infarction at a small acute left [employer] GLAZIER distribution infarction. Neurology was consulted the patient was started on clopidogrel and aspirin. Cardiology was consulted and recommended further testing. Trance esophageal echocardiogram with bubble study showed an atrial septal aneurysm with a small [id number] shunt present, mild left ventricular hypertrophy with good left ventricular systolic function no masses or thrombi seen and aorta is without significant atherosclerosis. Interrogation of the patient's loop recorder did not show any atrial fibrillation. The patient has a mild amount of carotid disease hypertension and a smokes which are risk factors for his stroke. This stroke occurred while taking aspirin. The patient was found with an atrial septal aneurysm with a PFO and the shunt appears very small by GABE physician recommend considering closure of the PFO depending on the patient's situation after rehab. Patient blood pressure is currently stable without any antihypertensive medication and cardiology recommended to avoid hypotension. Physical examination continues to reveal left-sided weakness left-sided neglect, balance impairment decreased gross motor control and decrease safety awareness. Patient is awake and alert oriented x4 his now on oxygen 2 liters oxygen but does not use at baseline. The patient will be discharged to us on Plavix aspirin and statin. He will require close monitoring and additional anticoagulation therapy management with coordination of Neurolog y and Cardiology other risk in the benefits have been explained to him The patient has not traveled outside the [place] or had contact with someone who is ill that has traveled outside the use in the past 21 days. The patient has not traveled to an area of the [place] that is experiencing no transmission of the Coronavirus and has not had close personal contact with anyone that has. The patient does not have a fever. The patient is not experiencing lowers respiratory symptoms the patient does not have fever chills sore throat he has COPD and nocturnal hypoxia at baseline he also currently uses tobacco and mentions that it is very hard for him to quit smoking Therapy was initiated at the acute care facility and the patient transferred to us from [facility] on August 05, 2019 FALLS OR SURGERIES: The patient has had major surgeries in the 100 days prior to admission. They had falls in the past year. They had falls with injury in the past year. PAST MEDICAL HISTORY: benign prostatic hyperplasia, depression with anxiety, hyperlipidemia, essential hypertension, tobacc
[2019-08-06] MEDS: ACETAMINOPHEN 325 MG TABLET 650 MG PO ×2 (12:16→18:04)
[2019-08-06 14:00] VITALS: BP 117/84; PULSE 56; RESP 19; TEMP 37.5; O2SAT 96
[2019-08-06 15:03] VITALS: BMI 18.6
--- NOTE | 2019-08-06 15:17 | PM.PNCARD ---
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 Stroke occurred while taking aspirin Multiple possible etiologies. 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 The shunt appears very small by GABE, however we were not able to have him Valsalva during the procedure because of his sedation so it could be larger at times. He also has hypertension, smokes and has some mild carotid disease. Recommend anticoagulation. Discussed with Dr. Beltre. Will start Eliquis 5 mg q.12 hours starting on 08/07/2019. Stop aspirin and Plavix. Consider closure of the PFO depending on the his situation after rehab etc. Continue statin (2) Patent foramen ovale: Code(s): Q21.1 - Atrial septal defect Status: Acute Assessment and Plan: PFO with atrial septal aneurysm as above (3) Hyperlipidemia: Code(s): E78.5 - Hyperlipidemia, unspecified Status: Chronic Assessment and Plan: Continue simvastatin (4) Tobacco abuse: Code(s): Z72.0 - Tobacco use Status: Acute Assessment and Plan: Smoking cessation discussed. He states he is going to try to stop smoking. Additional Plan Will follow-up p.r.n.. Please do not hesitate to call if we can be of assistance. Plan discussed with Dr. Martinez 1530 08/06/2019 Time Spent With Patient Time with patient: less than 15 minutes Subjective Date/time seen: 08/06/19 15:17 Interval history: Follow-up for: Acute CVA, PFO, hyperlipidemia and tobacco use Date of service: 08/06/2019 Subjective: Only thing bothering him is headache. Denied chest discomfort, shortness of breath or lightheadedness. Review of Systems Constitutional: Constitutional: Reports weakness Eyes: Eyes: Reports change in vision ENT: Reports Normal hearing present Cardiovascular: Cardiovascular: Denies chest pain, Denies pedal edema, Denies leg edema, Denies lightheadedness and Denies palpitations Respiratory: Respiratory: Denies cough, Denies dyspnea, Denies dyspnea on exertion and Denies wheezing Gastrointestinal: Gastrointestinal: Denies abdominal pain, Denies nausea and Denies vomiting Genitourinary: Genitourinary: Denies hematuria Musculoskeletal: Musculoskeletal: Denies arthralgias Integumentary/Breasts: Skin/Breast: Denies unusual bruising Neurologic: Reports abnormal gait and Reports headache(s) Psychiatric: Psychiatric: Denies anxiety Exam Const: General: cooperative and no acute distress Nutritional Appearance: thin Orientation/consciousness: patient oriented x3 HENMT: General nose exam: Normal nares present and no epistaxis Eyes: Alignment and Position: other (Gaze is deviated towards the right.) Neck: Neck: supple and no JVD Thyroid: thyroid normal Resp: Effort & Inspection: normal respiratory effort Auscultation: clear to auscultation bilaterally Cardio: Rate: regular rate Rhythm: regular rhythm Heart sounds: no murmurs GI: GI Palp: Yes Soft to palpation Auscultation: normal bowel sounds Skin: General skin exam: normal color and no rashes or lesions noted Neuro: Speech: normal speech Other: Gaze is deviated towards the right. Does not make eye contact. Extrem: General: normal to inspection and no edema Psych: Appearance: grossly normal Affect: Animated affect present Attitude: cooperative Objective Data Vital Signs Vital Signs: Vital Signs - 24 hr 08/05/19 22:00 08/06/19 06:00 08/06/19 14:00 Temperature 37.1 C 36.7 C 37.5 C Pulse Rate 75 81 56 L Respiratory Rate 18 18 19 Blood Pressure 114
[2019-08-06] MEDS: levETIRAcetam 250 MG TABLET 750 MG PO (20:06)
[2019-08-06 22:00] VITALS: BP 99/56; PULSE 79; RESP 18; TEMP 37.4; O2SAT 92
[2019-08-07] MEDS: TRAMADOL HCL 50 MG TABLET PO ×4 (01:44→20:33)
[2019-08-07 06:00] VITALS: BP 117/56; PULSE 69; RESP 18; TEMP 37.4; O2SAT 100
[2019-08-07] MEDS: ACETAMINOPHEN 325 MG TABLET 650 MG PO ×2 (06:03→13:10)
[2019-08-07] MEDS: SERTRALINE HCL 50 MG TABLET 200 MG PO (08:25)
[2019-08-07] MEDS: APIXABAN 5 MG TABLET PO ×2 (08:25→20:33)
[2019-08-07] MEDS: DOCUSATE SODIUM 100 MG CAPSULE PO ×2 (08:26→20:33)
[2019-08-07] MEDS: SIMVASTATIN 20 MG TABLET 40 MG PO (08:26)
[2019-08-07] MEDS: GABAPENTIN 300 MG CAPSULE 600 MG PO ×2 (08:26→20:33)
[2019-08-07] MEDS: TAMSULOSIN HCL 0.4 MG CAPSULE PO (08:27)
[2019-08-07] MEDS: ARIPIPRAZOLE 5 MG TABLET PO (08:27)
[2019-08-07] MEDS: levETIRAcetam 250 MG TABLET 500 MG PO (08:28)
[2019-08-07] MEDS: polyethylene glycoL 3350 17 GM POWD.PACK PO (08:28)
[2019-08-07 10:31] VITALS: PULSE 69; RESP 18; O2SAT 100
[2019-08-07 13:10] VITALS: TEMP 37.4
[2019-08-07 14:00] VITALS: BP 107/82; PULSE 84; RESP 22; TEMP 37.1; O2SAT 94
[2019-08-07] MEDS: levETIRAcetam 250 MG TABLET 750 MG PO (20:33)
[2019-08-07 22:00] VITALS: BP 117/77; PULSE 64; RESP 16; TEMP 37.2; O2SAT 94
[2019-08-08] VITALS (7 sets, daily range): BP systolic 105–125; BP diastolic 63–89; PULSE 56–69; RESP 17–20; TEMP 37–37.2; O2SAT 90–99
[2019-08-08] MEDS: TRAMADOL HCL 50 MG TABLET PO ×3 (02:30→16:15)
[2019-08-08] MEDS: ACETAMINOPHEN 325 MG TABLET 650 MG PO ×3 (09:25→18:17)
[2019-08-08] MEDS: APIXABAN 5 MG TABLET PO ×2 (09:26→20:36)
[2019-08-08] MEDS: ARIPIPRAZOLE 5 MG TABLET PO (09:26)
[2019-08-08] MEDS: DOCUSATE SODIUM 100 MG CAPSULE PO ×2 (09:28→20:39)
[2019-08-08] MEDS: GABAPENTIN 300 MG CAPSULE 600 MG PO ×2 (09:28→20:36)
[2019-08-08] MEDS: SERTRALINE HCL 50 MG TABLET 200 MG PO (09:29)
[2019-08-08] MEDS: polyethylene glycoL 3350 17 GM POWD.PACK PO (09:29)
[2019-08-08] MEDS: SIMVASTATIN 20 MG TABLET 40 MG PO (09:29)
[2019-08-08] MEDS: levETIRAcetam 250 MG TABLET 500 MG PO (09:29)
[2019-08-08] MEDS: TAMSULOSIN HCL 0.4 MG CAPSULE PO (09:30)
--- NOTE | 2019-08-08 11:35 | WPDNEURORHBP ---
Subjective Date/time seen: 08/08/19 11:35 RMCA stroke withLoccipital stroke and visual field cutand left hemiparesis also PFO for which graphics specialist has recmmended closure Review of Systems Review of Systems: All systems reviewed & are unremarkable except as noted in HPI and below Functional Status Ambulation Ability Ability to Ambulate 10 Feet: Minimum Assistance X 1 Ability to Ambulate 50 Feet With 2 Turns: Minimum Assistance X 1 Ability to Ambulate 150 Feet: Minimum Assistance X 1 Ambulation Assistive Devices: Hand Hold and Walker, Wheeled Transfers Ability Ability to Transfer In/Out of Chair: Contact Guard Exam Const: General: cooperative, healthy appearing, comfortable, no acute distress, alert and awake Nutritional Appearance: average body habitus Orientation/consciousness: oriented to person and oriented to place Limitations: physical limitations HENMT: Head: normal to inspection Ears: hearing grossly normal bilaterally General nose exam: Normal external nose present and No nasal discharge present Face and sinus: normal facial exam Mouth: Yes Normal oral and palatal mucosa present Eyes: General: appearance normal, both eyes and all related structures Visual Olivares: abnormal by confrontation Periorbital: periorbital findings normal Eyelids: eyelids normal and eyelid abnormality Conjunctivae: conjunctivae normal Sclera: sclerae normal Cornea: corneas normal Pupils: Equal, round and reactive pupils present EOM: EOMs intact bilaterally Direct Ophthalmoscopy: normal light reflex and no photophobia Neck: Neck: normal visual inspection, full ROM and no lymphadenopathy Thyroid: thyroid normal Lymphatic: no lymphadenopathy noted Resp: Auscultation: clear to auscultation bilaterally Cardio: Jugular venous distension: no JVD Palpation: normal PMI Rate: regular rate Rhythm: regular rhythm GI: Inspection: normal to inspection Percussion: Yes normal to percussion Auscultation: normal bowel sounds Skin: General skin exam: no rashes or lesions noted Neuro: General: oriented to person, oriented to place, tone normal, moves all extremities and Normal light touch and pain sensation Cranial nerves: Yes Equal, round and reactive pupils present, Yes Bilaterally intact EOM present, Yes Nystagmus not present, Yes Normal facial strength present, Yes Midline tongue present, Yes Normal hearing present, Yes Ability to bilaterally rotate head present and Yes Ability to bilaterally elevate shoulders present Cognition (Neuro): normal cognition Speech: normal speech Gait exam (Neuro): Unable to assess gait Motor exam (neuro): Abnormal motor strength present Sensory Exam: Sensory deficit (Neuro) Deep tendon reflexes (DTR's): Right triceps reflex intensity grade: 2+, Left triceps reflex intensity grade: 1+, Rt Biceps (C5, C6): 2+, Left biceps reflex intensity grade: 1+, Right brachioradialis reflex intensity grade: 2+, Left brachioradialis reflex intensity grade: 1+, Right patellar reflex intensity grade: 2+, Left patellar reflex intensity grade: 1+, Right ankle reflex intensity grade: 2+ and Left ankle reflex intensity grade: 1+ Plantar Reflex Responses: downgoing: right and upgoing (positive Babinski): left Extrem: General: normal to inspection Psych: Mental Status: mental status grossly normal Speech and movement: Normal speech and movement present Affect: normal affect Attitude: cooperative Thought process: Normal thought process present Thought content: Yes Normal thought content present Insight: Fair insight present (Psych) Judgement: Fair judgement present (Psych) Objective Data Vital Signs Vital Signs: Vital Signs - 24 hr 08/07/19 13:10 08/07/19 14:00 08/07/19 22:00 Temperature 37.4 C 37.1 C 37.2 C Pulse Rate 84 64 Respiratory Rate 22 H 16 Blood Pressure 107/82 117/77 Pulse Oximetry 94 94 08/08/19 06:00 Temperature 37.2 C Pulse Rate 69 Respiratory Rate 17 Blood Pressure 125/80 Pulse Oximetry 92 Intake/Out
[2019-08-08] MEDS: PHARMACIST COMMUNICATION ORDER 1 EACH XX (20:02)
[2019-08-08] MEDS: SALMETEROL XINAFOATE 50 MCG DISKUS 1 PUFF INHALATION (20:31)
[2019-08-08] MEDS: levETIRAcetam 250 MG TABLET 750 MG PO (20:37)
[2019-08-09] MEDS: TRAMADOL HCL 50 MG TABLET PO ×2 (00:25→06:02)
[2019-08-09] MEDS: ACETAMINOPHEN 325 MG TABLET 650 MG PO ×4 (03:07→16:57)
[2019-08-09 06:00] VITALS: BP 120/73; PULSE 59; RESP 16; TEMP 37.1; O2SAT 97
[2019-08-09] MEDS: SALMETEROL XINAFOATE 50 MCG DISKUS 1 PUFF INHALATION ×2 (08:09→21:19)
[2019-08-09 08:20] VITALS: PULSE 64; RESP 18
[2019-08-09] MEDS: levETIRAcetam 250 MG TABLET 500 MG PO (08:41)
[2019-08-09] MEDS: polyethylene glycoL 3350 17 GM POWD.PACK PO (08:41)
[2019-08-09] MEDS: SIMVASTATIN 20 MG TABLET 40 MG PO (08:42)
[2019-08-09] MEDS: SERTRALINE HCL 50 MG TABLET 200 MG PO (08:42)
[2019-08-09] MEDS: TAMSULOSIN HCL 0.4 MG CAPSULE PO (08:42)
[2019-08-09] MEDS: ARIPIPRAZOLE 5 MG TABLET PO (08:42)
[2019-08-09] MEDS: APIXABAN 5 MG TABLET PO ×2 (08:42→19:52)
[2019-08-09] MEDS: GABAPENTIN 300 MG CAPSULE 600 MG PO ×2 (08:43→19:54)
[2019-08-09] MEDS: DOCUSATE SODIUM 100 MG CAPSULE PO ×2 (08:45→19:53)
--- NOTE | 2019-08-09 09:58 | RPD ---
INDIVIDUALIZED PLAN OF CARE FOR Cem Osman Brief Synthesis of Pre-Admission Screen, Post-Admission Evaluation and Therapy Evaluations: The patient's plan of care was reviewed on 08/06/2019 at 13:30. The patient presents to rehab with a large acute right MCA distribution infarction. Comorbidities include: Benign prostatic hyperplasia, atrial septal defect, depression with anxiety, hyperlipidemia, essential hypertension, tobacco abuse, COPD, seizure disorder, GERD, lung nodule, nocturnal hypoxemia, SOB, CVA in 03/2017 with mild left upper extremity residual deficit, visual deficit, left-side neglect, supplemental O2. The patient requires physician services for neurology services, medical oversight, and coordination of care. Emotional needs will be monitored as depression is a common sequelae of stroke. The patient needs physician monitoring and treatment of leukocytosis, hyponatremia, renal insufficiency, monitoring for adverse reactions to new medications, monitoring of infection, and pain control. The patient requires nursing services for frequent neuro checks, anticoagulation therapy, medication management and education, pressure relief and skin care management, monitoring of labs, bowel and bladder training, and fall/safety precautions. Deficits include:ADLs, Balance, Cognition, Endurance, Family Training/Education, Mobility, Pain Management, ROM, Safety, Transfers, Strength Supervisor Mapping/Case Management for: Discharge Planning and Patient/Family Counseling Physical Therapy: 5 days per week for 75 minutes. Treatments may include: Therapeutic Exercise, Gait Training, Neuromuscular Re-education, Transfer Training, Community Reintegration, Bed Mobility, Patient/Family Education, Wheelchair Mobility Group Therapy/Concurrent Therapy Rationales: -Improve attention span during functional activities in a distracted environment. -Enhance problem solving and/or adequate judgment skills during functional activities in a distracted environment. -Promote increased safety awareness in a distracted environment to reduce fall risk with functional tasks, transfers, and ambulation to allow a more safe, self-sufficient return to the home environment. -Improve dynamic balance skills to promote safety and independence with functional activities in a distracted environment for maximum gain. Occupational Therapy: 5 days per week for 75 minutes. Treatments may include: Therapeutic Exercise, Therapeutic Activity, Cognitive Training, Self-Care Transfer Training, Community Reintegration, Home Management, Patient/Family Education, Wheelchair Mobility Training, Energy Conservation Training Group Therapy/Concurrent Therapy Rationales: -Allow therapist to observe and teach generalization and carry-over of skills learned in individual therapy. -Enhance problem solving and sequencing skills during therapeutic activities in a distracted environment. -Promote increased safety awareness in a realistic setting to reduce fall risk with functional tasks due to visual and verbal distractions. -Increase functional level with ADLs, ADL transfers and use of adaptive equipment through therapeutic activities with others while promoting safety to allow a more safe, self-sufficient return home. Speech Therapy: 5 days per week for 30 minutes. Treatments may include: Dysphasia Therapy, Speech/Language/Communication Therapy, Cognitive Training, Patient/Family Education Group Therapy/Concurrent Therapy - Rationale: -Allow therapist to observe and teach generalization and carry-over of skills learned in individual therapy. -Improve comprehension skills with complex or abstract ideas through discussion in a realistic setting. -Enhance problem solving skills with complex issues during activities in a distracted environment. -Promote increased memory skills and concentration in a distracted environment for a safe transition home. -Improve attention and focus with language/communication skills in a realistic and supp
[2019-08-09 10:38] VITALS: BMI 18.6
--- NOTE | 2019-08-09 10:39 | PCDIET ---
Nutrition Follow-Up Complete: Nutrition Diagnosis: Underweight related to weight loss history as evidenced by visual assessment, patient report. Nutrition Goal: Patient to consume 75% of meals or greater. Goal met. Patient consuming 80-100% of meals on 2 gram sodium, soft and bite size diet. Reports good appetite and taking Ensure Compact with meals. Will continue to monitor with same goal. Last recorded weight is 66 kg. Bowel Motility: +BM on 08/06/19. Labs Reviewed: No new chemistry available. Meds Noted: Albuterol, Colace, Miralax Additional Notes: No documented skin breakdown. Nutrition Monitoring and Evaluation: Follow up in 5 days.
[2019-08-09 14:00] VITALS: BP 93/58; PULSE 65; RESP 18; TEMP 37.1; O2SAT 93
[2019-08-09] MEDS: levETIRAcetam 250 MG TABLET 750 MG PO (19:54)
[2019-08-09 21:23] VITALS: PULSE 62; O2SAT 94
[2019-08-09 22:00] VITALS: BP 108/63; PULSE 51; RESP 18; TEMP 37.1; O2SAT 97
[2019-08-10 06:00] VITALS: BP 115/77; PULSE 73; RESP 18; TEMP 37.8; O2SAT 92
[2019-08-10] MEDS: SALMETEROL XINAFOATE 50 MCG DISKUS 1 PUFF INHALATION ×2 (07:34→20:13)
[2019-08-10 08:00] VITALS: PULSE 73; RESP 18; O2SAT 92
[2019-08-10] MEDS: levETIRAcetam 250 MG TABLET 500 MG PO (08:10)
[2019-08-10] MEDS: SIMVASTATIN 20 MG TABLET 40 MG PO (08:10)
[2019-08-10] MEDS: APIXABAN 5 MG TABLET PO ×2 (08:10→20:01)
[2019-08-10] MEDS: SERTRALINE HCL 50 MG TABLET 200 MG PO (08:10)
[2019-08-10] MEDS: DOCUSATE SODIUM 100 MG CAPSULE PO ×2 (08:11→20:01)
[2019-08-10] MEDS: GABAPENTIN 300 MG CAPSULE 600 MG PO ×2 (08:11→20:01)
[2019-08-10] MEDS: ARIPIPRAZOLE 5 MG TABLET PO (08:11)
[2019-08-10] MEDS: TAMSULOSIN HCL 0.4 MG CAPSULE PO (08:11)
[2019-08-10] MEDS: polyethylene glycoL 3350 17 GM POWD.PACK PO (08:11)
[2019-08-10] MEDS: ACETAMINOPHEN 325 MG TABLET 650 MG PO (10:30)
[2019-08-10 14:00] VITALS: BP 102/57; PULSE 69; RESP 17; TEMP 37.2; O2SAT 93
--- NOTE | 2019-08-10 14:30 | WPDNEURORHBP ---
Subjective Date/time seen: 08/10/19 14:30 Interval history: this 64-year-old is here after having had stroke which has left him with left-sided weakness and left-sided neglect and left-sided visual field defect his walking fairly good needing assistance to 300 feet but he is speech problem and the safety concerns and the he needs to be assessed on next week and probable discharge August Patient does not have any specific new complaints at this time Review of Systems Review of Systems: All systems reviewed & are unremarkable except as noted in HPI and below Functional Status Ambulation Ability Ability to Ambulate 10 Feet: Contact Guard Ability to Ambulate 50 Feet With 2 Turns: Contact Guard Ability to Ambulate 150 Feet: Contact Guard Ambulation Assistive Devices: Hand Hold Transfers Ability Ability to Transfer In/Out of Chair: Contact Guard Exam Const: General: comfortable and no acute distress HENMT: General nose exam: Normal nares present Mouth: Yes moist mucous membranes Eyes: General: appearance normal, both eyes and all related structures EOM: EOMs intact bilaterally Neck: Neck: supple and no JVD Resp: Effort & Inspection: normal respiratory effort Auscultation: clear to auscultation bilaterally Cardio: Rate: regular rate Rhythm: regular rhythm GI: GI Palp: Yes Soft to palpation Auscultation: normal bowel sounds Skin: General skin exam: normal color and no rashes or lesions noted Neuro: Other: patient is awake and alert and improving left-sided hemiparesis Extrem: General: normal to inspection Psych: Mental Status: mental status grossly normal Objective Data Vital Signs Vital Signs: Vital Signs - 24 hr 08/09/19 21:23 08/09/19 22:00 08/10/19 06:00 Temperature 37.1 C 37.8 C H Pulse Rate 62 51 L 73 Respiratory Rate 18 18 Blood Pressure 108/63 115/77 Pulse Oximetry 94 97 92 08/10/19 08:00 Temperature Pulse Rate 73 Respiratory Rate 18 Blood Pressure Pulse Oximetry 92 Intake/Output Intake/Output: Intake & Output 08/07/19 08/08/19 08/09/19 08/10/19 23:59 23:59 23:59 23:59 Intake Total 560 880 720 480 Balance 560 880 720 480 Meds/Results Medications: Active Medications Generic Name Dose Route Start Last Admin Trade Name Freq PRN Reason Stop Dose Admin Acetaminophen 650 mg 08/05/19 16:07 08/10/19 10:30 Tylenol Tablet PO 650 mg Q4H PRN Administration Mild Pain (1-3) Or Fever Hydrocodone Bitart/Acetaminophen 1 tab 08/09/19 10:28 08/10/19 14:17 [place] 10-325 Mg PO 1 tab Q6H PRN Administration Pain Rated 7-10 Albuterol 2 puff 08/05/19 16:07 Proventil Hfa INHALATION Q4H PRN shortness of breath Apixaban 5 mg 08/07/19 09:00 08/10/19 08:10 Eliquis PO 5 mg Q12HR SHANNON Administration Aripiprazole 5 mg 08/06/19 09:00 08/10/19 08:11 Abilify PO 5 mg DAILY SHANNON Administration Docusate Sodium 100 mg 08/05/19 21:00 08/10/19 08:11 Colace Capsule PO 100 mg Q12HR SHANNON Administration Fluticasone Propionate 2 puff 08/08/19 20:00 08/10/19 07:33 Flovent 44 Mcg INHALATION 2 puff Q12HRT SHANNON Administration Gabapentin 600 mg 08/05/19 21:00 08/10/19 08:11 Neurontin PO 600 mg Q12HR SHANNON Administration Levetiracetam 750 mg 08/05/19 21:00 08/09/19 19:54 Keppra Tablet PO 750 mg HS SHANNON Administration Levetiracetam 500 mg 08/06/19 09:00 08/10/19 08:10 Keppra Tablet PO 500 mg QAM SHANNON Administration Polyethylene Glycol 17 gm 08/07/19 09:00 08/10/19 08:11 Miralax PO 17 gm QAM SHANNON Administration Ropinirole HCl 0.5 mg 08/06/19 09:00 08/10/19 08:10 Ropinirole Hcl PO 0.5 mg DAILY SHANNON Administration Salmeterol Xinafoate 1 puff 08/08/19 20:00 08/10/19 07:34 Serevent 50 Mcg Diskus INHALATION 1 puff Q12HRT SHANNON Administration Sertraline HCl 200 mg 08/06/19 09:00 08/10/19 08:10 Zoloft PO 200 mg DAILY SHANNON Administration Simvastati
[2019-08-10] MEDS: levETIRAcetam 250 MG TABLET 750 MG PO (20:02)
[2019-08-10 20:19] VITALS: O2SAT 93
[2019-08-10 22:00] VITALS: BP 140/72; PULSE 70; RESP 18; TEMP 37.7; O2SAT 94
[2019-08-11 05:16] LABS: Hematocrit 36.8 % (42.0-52.0); Hemoglobin 12.1 g/dL (14.0-18.0); Mean Corpuscular HGB Conc 32.9 g/dl (32-36); Mean Corpuscular Hemoglobin 29.4 pg (26-34); Mean Corpuscular Volume 89.3 fl (80-100); Mean Platelet Volume 9.4 fl (7.4-10.4); Platelet Count Result 329 k/mm3 (150-375); Red Blood Count 4.12 M/mm3 (4.6-6.20); Red Cell Distribution Width 11.8 % (11.5-14.5); White Blood Count 9.8 K/mm3 (4.5-10.0)
[2019-08-11 06:00] VITALS: BP 105/79; PULSE 64; RESP 18; TEMP 37.4; O2SAT 91
[2019-08-11 08:00] VITALS: PULSE 64; RESP 18; O2SAT 91
[2019-08-11] MEDS: SALMETEROL XINAFOATE 50 MCG DISKUS 1 PUFF INHALATION ×2 (08:23→20:19)
[2019-08-11] MEDS: ARIPIPRAZOLE 5 MG TABLET PO (08:29)
[2019-08-11] MEDS: SIMVASTATIN 20 MG TABLET 40 MG PO (08:30)
[2019-08-11] MEDS: TAMSULOSIN HCL 0.4 MG CAPSULE PO (08:30)
[2019-08-11] MEDS: DOCUSATE SODIUM 100 MG CAPSULE PO ×2 (08:31→20:32)
[2019-08-11] MEDS: APIXABAN 5 MG TABLET PO ×2 (08:31→20:31)
[2019-08-11] MEDS: GABAPENTIN 300 MG CAPSULE 600 MG PO ×2 (08:31→20:32)
[2019-08-11 08:32] VITALS: O2SAT 91
[2019-08-11] MEDS: levETIRAcetam 250 MG TABLET 500 MG PO (08:32)
[2019-08-11] MEDS: polyethylene glycoL 3350 17 GM POWD.PACK PO (08:32)
[2019-08-11] MEDS: SERTRALINE HCL 50 MG TABLET 200 MG PO (08:33)
--- NOTE | 2019-08-11 13:24 | WPDNEURORHBP ---
Subjective Date/time seen: 08/11/19 13:24 Interval history: this 64-year-old is here after having had stroke on top of the previous history of the stroke and bilateral weakness he is complaining of headache which a [place] we he has suffered from for quite sometime in the past it has intensity is although moderately severe however it is not any different than the previous headaches he has had without any lateralizing symptoms associated with he denies any fever chills sore throat nausea vomiting chest pain or shortness of breath Review of Systems Review of Systems: All systems reviewed & are unremarkable except as noted in HPI and below Functional Status Ambulation Ability Ability to Ambulate 10 Feet: Contact Guard Ability to Ambulate 50 Feet With 2 Turns: Minimum Assistance X 1 Ability to Ambulate 150 Feet: Contact Guard Ambulation Assistive Devices: Hand Hold Transfers Ability Ability to Transfer In/Out of Chair: Contact Guard Exam Const: General: comfortable and no acute distress HENMT: General nose exam: Normal nares present Mouth: Yes moist mucous membranes Eyes: General: appearance normal, both eyes and all related structures Neck: Neck: supple and no JVD Resp: Effort & Inspection: normal respiratory effort Auscultation: clear to auscultation bilaterally Cardio: Rate: regular rate Rhythm: regular rhythm GI: GI Palp: Yes Soft to palpation Auscultation: normal bowel sounds Skin: General skin exam: normal color and no rashes or lesions noted Neuro: Other: patient is awake and alert oriented with generalized weakness rather bilateral weakness related to bilateral stroke the new 1 and the old 1 Extrem: General: normal to inspection Psych: Mental Status: mental status grossly normal Objective Data Vital Signs Vital Signs: Vital Signs - 24 hr 08/10/19 14:00 08/10/19 20:19 08/10/19 22:00 Temperature 37.2 C 37.7 C H Pulse Rate 69 70 Respiratory Rate 17 18 Blood Pressure 102/57 L 140/72 Pulse Oximetry 93 93 94 08/11/19 06:00 08/11/19 08:00 08/11/19 08:32 Temperature 37.4 C Pulse Rate 64 64 Respiratory Rate 18 18 Blood Pressure 105/79 Pulse Oximetry 91 91 91 Intake/Output Intake/Output: Intake & Output 08/08/19 08/09/19 08/10/19 08/11/19 23:59 23:59 23:59 23:59 Intake Total 880 720 720 480 Balance 880 720 720 480 Meds/Results Medications: Active Medications Generic Name Dose Route Start Last Admin Trade Name Freq PRN Reason Stop Dose Admin Acetaminophen 650 mg 08/05/19 16:07 08/10/19 10:30 Tylenol Tablet PO 650 mg Q4H PRN Administration Mild Pain (1-3) Or Fever Hydrocodone Bitart/Acetaminophen 1 tab 08/11/19 12:35 08/11/19 13:07 [place] 10-325 Mg PO 1 tab Q4H SHANNON Administration Albuterol 2 puff 08/05/19 16:07 Proventil Hfa INHALATION Q4H PRN shortness of breath Apixaban 5 mg 08/07/19 09:00 08/11/19 08:31 Eliquis PO 5 mg Q12HR SHANNON Administration Aripiprazole 5 mg 08/06/19 09:00 08/11/19 08:29 Abilify PO 5 mg DAILY SHANNON Administration Docusate Sodium 100 mg 08/05/19 21:00 08/11/19 08:31 Colace Capsule PO 100 mg Q12HR SHANNON Administration Fluticasone Propionate 2 puff 08/08/19 20:00 08/11/19 08:25 Flovent 44 Mcg INHALATION 2 puff Q12HRT SHANNON Administration Gabapentin 600 mg 08/05/19 21:00 08/11/19 08:31 Neurontin PO 600 mg Q12HR SHANNON Administration Levetiracetam 750 mg 08/05/19 21:00 08/10/19 20:02 Keppra Tablet PO 750 mg HS SHANNON Administration Levetiracetam 500 mg 08/06/19 09:00 08/11/19 08:32 Keppra Tablet PO 500 mg QAM SHANNON Administration Polyethylene Glycol 17 gm 08/07/19 09:00 08/11/19 08:32 Miralax PO 17 gm QAM SHANNON Administration Ropinirole HCl 0.5 mg 08/06/19 09:00 08/11/19 08:33 Ropinirole Hcl PO 0.5 mg DAILY SHANNON Administration Salmeterol Xinafoate 1 puff 08/08/19 20:00 08/11/19 08:23 Serevent 50 Mcg Diskus
[2019-08-11 14:00] VITALS: BP 113/69; PULSE 68; RESP 18; TEMP 37.2; O2SAT 92
[2019-08-11 20:20] VITALS: PULSE 69; O2SAT 93
[2019-08-11] MEDS: levETIRAcetam 250 MG TABLET 750 MG PO (20:31)
[2019-08-11 22:00] VITALS: BP 109/63; PULSE 60; RESP 18; TEMP 37.6; O2SAT 95
[2019-08-12 06:00] VITALS: BP 120/88; PULSE 60; RESP 18; TEMP 36.6; O2SAT 96
[2019-08-12] MEDS: SALMETEROL XINAFOATE 50 MCG DISKUS 1 PUFF INHALATION ×2 (07:14→21:26)
[2019-08-12 07:21] VITALS: O2SAT 93
[2019-08-12] MEDS: APIXABAN 5 MG TABLET PO ×2 (09:25→20:14)
[2019-08-12] MEDS: GABAPENTIN 300 MG CAPSULE 600 MG PO ×2 (09:26→20:14)
[2019-08-12] MEDS: ARIPIPRAZOLE 5 MG TABLET PO (09:26)
[2019-08-12] MEDS: SERTRALINE HCL 50 MG TABLET 200 MG PO (09:27)
[2019-08-12] MEDS: levETIRAcetam 250 MG TABLET 500 MG PO (09:27)
[2019-08-12] MEDS: polyethylene glycoL 3350 17 GM POWD.PACK PO (09:27)
[2019-08-12] MEDS: SIMVASTATIN 20 MG TABLET 40 MG PO (09:28)
[2019-08-12] MEDS: TAMSULOSIN HCL 0.4 MG CAPSULE PO (09:28)
[2019-08-12] MEDS: DOCUSATE SODIUM 100 MG CAPSULE PO ×2 (09:30→20:14)
--- NOTE | 2019-08-12 11:16 | PM.PNCARD ---
Progress Note: A&P Assessment and Plan (1) Acute cerebrovascular accident: Code(s): I63.9 - Cerebral infarction, unspecified Status: Acute Assessment and Plan: MRI 08/02/2019 showed: Large acute right MCA distribution infarction, Small acute left FLOOR REFINISHER distribution infarction, Old small right frontoparietal infarction. Stroke occurred while taking aspirin Multiple possible etiologies. 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 The shunt appears very small by GABE, however we were not able to have him Valsalva during the procedure because of his sedation so it could be larger at times. He also has hypertension, smokes and has some mild carotid disease. Recommend anticoagulation. Discussed with Dr. Beltre. Continue Eliquis 5 mg q.12 hours starting on 08/07/2019. Stop aspirin and Plavix. Consider closure of the PFO depending on the his situation after rehab etc. Continue statin (2) Patent foramen ovale: Code(s): Q21.1 - Atrial septal defect Status: Acute Assessment and Plan: PFO with atrial septal aneurysm as above (3) Hyperlipidemia: Code(s): E78.5 - Hyperlipidemia, unspecified Status: Chronic Assessment and Plan: Continue simvastatin (4) Tobacco abuse: Code(s): Z72.0 - Tobacco use Status: Acute Assessment and Plan: Smoking cessation discussed. He states he is going to try to stop smoking. Subjective Date/time seen: 08/12/19 11:16 Interval history: Follow-up for: Acute CVA, PFO, hyperlipidemia and tobacco use Date of service: 08/12/2019 Subjective: Denied chest discomfort, shortness of breath or lightheadedness. Review of Systems Constitutional: Constitutional: Reports headache(s) and Reports weakness Eyes: Eyes: Reports change in vision ENT: Reports Normal hearing present and Reports headache(s) Cardiovascular: Cardiovascular: Denies chest pain, Denies pedal edema, Denies leg edema, Denies lightheadedness, Denies palpitations, Denies dyspnea and Denies dyspnea on exertion Respiratory: Respiratory: Denies cough, Denies dyspnea, Denies dyspnea on exertion and Denies wheezing Gastrointestinal: Gastrointestinal: Denies abdominal pain, Denies nausea and Denies vomiting Genitourinary: Genitourinary: Denies hematuria Musculoskeletal: Musculoskeletal: Reports abnormal gait and Denies arthralgias Integumentary/Breasts: Skin/Breast: Denies unusual bruising Neurologic: Reports Normal hearing present, Reports abnormal gait, Reports headache(s) and Reports weakness Psychiatric: Psychiatric: Denies anxiety Endocrine: Endocrine: Denies palpitations Allergic/Immunologic: Allergic/Immunologic: Denies wheezing Exam Const: General: cooperative and no acute distress Nutritional Appearance: thin Orientation/consciousness: patient oriented x3 HENMT: General nose exam: Normal nares present and no epistaxis Eyes: Alignment and Position: other (Gaze is deviated towards the right.) Neck: Neck: supple and no JVD Thyroid: thyroid normal Resp: Effort & Inspection: normal respiratory effort Auscultation: clear to auscultation bilaterally Cardio: Rate: regular rate Rhythm: regular rhythm Heart sounds: no murmurs GI: Auscultation: normal bowel sounds Skin: General skin exam: normal color and no rashes or lesions noted Neuro: General: patient oriented x3 Cranial nerves: Yes Normal hearing present Speech: normal speech Other: Gaze is deviated towards the right. Does not make eye contact. Extrem: General: normal to inspection and no edema Psych: Appearance: grossly normal Affect: Animated affect present Attitude: cooperative Objective Data Vital Signs Vital Signs: Vital Signs - 24 hr 08/11/19 14:00 08/11/19 20:20 08/11/19 22:00 Temperature 37.2 C 37.6 C H Pulse Rate 68 69 60 Respiratory Rate 18
[2019-08-12 14:00] VITALS: BP 114/68; PULSE 62; RESP 18; TEMP 37.2; O2SAT 96
[2019-08-12] MEDS: levETIRAcetam 250 MG TABLET 750 MG PO (20:15)
[2019-08-12 22:00] VITALS: BP 101/58; PULSE 61; RESP 18; TEMP 37.1; O2SAT 94
[2019-08-13 04:24] LABS: Basophils Absolute Auto 0.1 K/mm3 (0.0-0.1); Basophils Percent Auto 0.9 % (0.2-1.2); Eosinophils Absolute Auto 0.2 K/mm3 (0-0.3); Eosinophils Percent Auto 4.3 % (0-4.4); Hematocrit 35.5 % (42.0-52.0); Hemoglobin 11.7 g/dL (14.0-18.0); Immature Granulocyte Absolute 0.02 K/mm3 (0.00-0.031); Immature Granulocyte Percent A 0.4 % (0-0.5); Lymphocytes Absolute Auto 1.39 K/mm3 (0.9-3.2); Lymphocytes Percent Auto 25.7 % (18.3-44.2); Mean Corpuscular Hemoglobin 29.8 pg (26-34); Mean Corpuscular Volume 90.6 fl (80-100); Mean Platelet Volume 9.4 fl (7.4-10.4); Monocytes Absolute Auto 0.7 K/mm3 (0.1-0.6); Neutrophils Absolute Auto 3.1 K/mm3 (1.3-6.7); Neutrophils Percent Auto 56.7 % (45.5-73.1); Platelet Count Result 337 k/mm3 (150-375); Red Blood Count 3.92 M/mm3 (4.6-6.20); Red Cell Distribution Width 11.7 % (11.5-14.5); White Blood Count 5.4 K/mm3 (4.5-10.0)
[2019-08-13 04:35] LABS: Blood Urea Nitrogen 13 mg/dL (9-20); Calcium 9.1 mg/dL (8.4-10.2); Carbon Dioxide 30 mmol/L (22-30); Chloride 100 mmol/L (98-107); Estimated CRCL calculation 76 ml/min; Estimated Glomerular Filt Rate > 60; Glucose 91 mg/dL (75-110); Potassium 3.8 mmol/L (3.4-5.0); Sodium 135 mmol/L (137-145)
[2019-08-13 06:00] VITALS: BP 115/71; PULSE 79; RESP 18; TEMP 36.6; O2SAT 93
[2019-08-13] MEDS: SALMETEROL XINAFOATE 50 MCG DISKUS 1 PUFF INHALATION ×2 (07:53→20:33)
[2019-08-13 07:55] VITALS: O2SAT 92
[2019-08-13 08:00] VITALS: PULSE 79; RESP 18; O2SAT 92
[2019-08-13] MEDS: SIMVASTATIN 20 MG TABLET 40 MG PO (09:03)
[2019-08-13] MEDS: TAMSULOSIN HCL 0.4 MG CAPSULE PO (09:03)
[2019-08-13] MEDS: GABAPENTIN 300 MG CAPSULE 600 MG PO ×2 (09:04→20:58)
[2019-08-13] MEDS: SERTRALINE HCL 50 MG TABLET 200 MG PO (09:04)
[2019-08-13] MEDS: polyethylene glycoL 3350 17 GM POWD.PACK PO (09:05)
[2019-08-13] MEDS: levETIRAcetam 250 MG TABLET 500 MG PO (09:05)
[2019-08-13] MEDS: ARIPIPRAZOLE 5 MG TABLET PO (09:06)
[2019-08-13] MEDS: APIXABAN 5 MG TABLET PO ×2 (09:06→20:57)
--- NOTE | 2019-08-13 10:19 | PM.PNCARD ---
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 Stroke occurred while taking aspirin Multiple possible etiologies. 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 The shunt appears very small by GABE, however we were not able to have him Valsalva during the procedure because of his sedation so it could be larger at times. He also has hypertension, smokes and has some mild carotid disease. Recommend anticoagulation. Discussed with Dr. Beltre. Continue Eliquis 5 mg q.12 hours starting on 08/07/2019. Stop aspirin and Plavix. Consider closure of the PFO depending on the his situation after rehab etc. Continue statin (2) Patent foramen ovale: Code(s): Q21.1 - Atrial septal defect Status: Acute Assessment and Plan: PFO with atrial septal aneurysm as above (3) Hyperlipidemia: Code(s): E78.5 - Hyperlipidemia, unspecified Status: Chronic Assessment and Plan: Continue simvastatin (4) Tobacco abuse: Code(s): Z72.0 - Tobacco use Status: Acute Assessment and Plan: Smoking cessation discussed. He states he is going to try to stop smoking. Subjective Date/time seen: 08/13/19 10:19 Interval history: Follow-up for: Acute CVA, PFO, hyperlipidemia and tobacco use Date of service: 08/13/2019 Subjective: Denied chest discomfort, shortness of breath or lightheadedness. Seen in rehab and feels okay today Review of Systems Constitutional: Constitutional: Reports headache(s) and Reports weakness Eyes: Eyes: Reports change in vision ENT: Reports Normal hearing present and Reports headache(s) Cardiovascular: Cardiovascular: Denies chest pain, Denies pedal edema, Denies leg edema, Denies lightheadedness, Denies palpitations, Denies dyspnea and Denies dyspnea on exertion Respiratory: Respiratory: Denies cough, Denies dyspnea, Denies dyspnea on exertion and Denies wheezing Gastrointestinal: Gastrointestinal: Denies abdominal pain, Denies nausea and Denies vomiting Genitourinary: Genitourinary: Denies hematuria Musculoskeletal: Musculoskeletal: Reports abnormal gait and Denies arthralgias Integumentary/Breasts: Skin/Breast: Denies unusual bruising Neurologic: Reports Normal hearing present, Reports abnormal gait, Reports headache(s) and Reports weakness Psychiatric: Psychiatric: Denies anxiety Endocrine: Endocrine: Denies palpitations Allergic/Immunologic: Allergic/Immunologic: Denies wheezing Exam Const: General: cooperative and no acute distress Nutritional Appearance: thin Orientation/consciousness: patient oriented x3 HENMT: General nose exam: Normal nares present and no epistaxis Eyes: Alignment and Position: other (Gaze is deviated towards the right.) Neck: Neck: supple and no JVD Thyroid: thyroid normal Resp: Effort & Inspection: normal respiratory effort Auscultation: clear to auscultation bilaterally Cardio: Rate: regular rate Rhythm: regular rhythm Heart sounds: no murmurs GI: Auscultation: normal bowel sounds Skin: General skin exam: normal color and no rashes or lesions noted Neuro: General: patient oriented x3 Cranial nerves: Yes Normal hearing present Speech: normal speech Other: Gaze is deviated towards the right. Does not make eye contact. Extrem: General: normal to inspection and no edema Psych: Appearance: grossly normal Affect: Animated affect present Attitude: cooperative Objective Data Vital Signs Vital Signs: Vital Signs - 24 hr 08/12/19 14:00 08/12/19 22:00 08/13/19 06:00 Temperature 37.2 C 37.1 C 36.6 C Pu
--- NOTE | 2019-08-13 10:36 | PCPTNOTE ---
Cem Osman was evaluated for a wheeled walker on 08/13/2019 by this physical therapist. The wheeled walker will resolve patient's mobility limitations and will be used for ADL's within the home. The patient can safely use the wheeled walker. ?The wheeled walker will resolve the patient?s mobility deficits, including transfers, walking in and out of home, and ADL's. Radha [place] PT
[2019-08-13] MEDS: DOCUSATE SODIUM 100 MG CAPSULE PO ×2 (12:39→21:00)
--- NOTE | 2019-08-13 13:08 | WPDNEURORHBP ---
Subjective Date/time seen: 08/13/19 13:08 Interval history: the patient is here after having had stroke and was found to have PFO and cardiology felt that he will be better of being on anticoagulation at this PET movement and then the closure of the PFO can be done in future based on his clinical situation and overall picture the patient denies any headache nausea vomiting chest pain shortness of breath fever chills sore throat Review of Systems Review of Systems: All systems reviewed & are unremarkable except as noted in HPI and below Functional Status Ambulation Ability Ability to Ambulate 10 Feet: Contact Guard Ability to Ambulate 50 Feet With 2 Turns: Contact Guard Ability to Ambulate 150 Feet: Contact Guard Ambulation Assistive Devices: Hand Hold and Walker, Wheeled Transfers Ability Ability to Transfer In/Out of Chair: Standby Assistance Exam Const: General: comfortable and no acute distress HENMT: General nose exam: Normal nares present Mouth: Yes moist mucous membranes Eyes: General: appearance normal, both eyes and all related structures Neck: Neck: supple and no JVD Resp: Effort & Inspection: normal respiratory effort Auscultation: clear to auscultation bilaterally Cardio: Rate: regular rate Rhythm: regular rhythm GI: GI Palp: Yes Soft to palpation Auscultation: normal bowel sounds Skin: General skin exam: normal color and no rashes or lesions noted Neuro: Other: patient is awake and alert well oriented has a subtle right-sided visual field defect and bilateral weakness where the left side is weaker than the right 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 and is getting better and discharge planning is in progress Extrem: General: normal to inspection Psych: Mental Status: mental status grossly normal Objective Data Vital Signs Vital Signs: Vital Signs - 24 hr 08/12/19 14:00 08/12/19 22:00 08/13/19 06:00 Temperature 37.2 C 37.1 C 36.6 C Pulse Rate 62 61 79 Respiratory Rate 18 18 18 Blood Pressure 114/68 101/58 L 115/71 Pulse Oximetry 96 94 93 08/13/19 07:55 08/13/19 08:00 Temperature Pulse Rate 79 Respiratory Rate 18 Blood Pressure Pulse Oximetry 92 92 Intake/Output Intake/Output: Intake & Output 08/10/19 08/11/19 08/12/19 08/13/19 23:59 23:59 23:59 23:59 Intake Total 720 720 960 360 Balance 720 720 960 360 Meds/Results Medications: Active Medications Generic Name Dose Route Start Last Admin Trade Name Freq PRN Reason Stop Dose Admin Acetaminophen 650 mg 08/05/19 16:07 08/10/19 10:30 Tylenol Tablet PO 650 mg Q4H PRN Administration Mild Pain (1-3) Or Fever Hydrocodone Bitart/Acetaminophen 1 tab 08/11/19 12:35 08/13/19 12:44 [place] 10-325 Mg PO 1 tab Q4H SHANNON Administration Albuterol 2 puff 08/05/19 16:07 Proventil Hfa INHALATION Q4H PRN shortness of breath Apixaban 5 mg 08/07/19 09:00 08/13/19 09:06 Eliquis PO 5 mg Q12HR SHANNON Administration Aripiprazole 5 mg 08/06/19 09:00 08/13/19 09:06 Abilify PO 5 mg DAILY SHANNON Administration Docusate Sodium 100 mg 08/05/19 21:00 08/13/19 12:39 Colace Capsule PO 100 mg Q12HR SHANNON Administration Fluticasone Propionate 2 puff 08/08/19 20:00 08/13/19 07:54 Flovent 44 Mcg INHALATION 2 puff Q12HRT SHANNON Administration Gabapentin 600 mg 08/05/19 21:00 08/13/19 09:04 Neurontin PO 600 mg Q12HR SHANNON Administration Levetiracetam 750 mg 08/05/19 21:00 08/12/19 20:15 Keppra Tablet PO 750 mg HS SHANNON Administration Levetiracetam 500 mg 08/06/19 09:00 08/13/19 09:05 Keppra Tablet PO 500 mg QAM SHANNON Administration Polyethylene Glycol 17 gm 08/07/19 09:00 08/13/19 09:05 Miralax PO 17 gm QAM SHANNON Administration Ropinirole HCl 0.5 mg 08/06/19 09:00 08/13/19 09:05 Ropinirole Hcl PO 0.5 mg DAILY SHANNON Administration Salmeterol Xinafoate 1 puff 08/08/19 20:00 08/13/19 07:53 Serevent 50 Mcg Diskus INHAL
[2019-08-13 13:21] LABS: Basophils Absolute Auto 0.1 K/mm3 (0.0-0.1); Basophils Percent Auto 1.1 % (0.2-1.2); Eosinophils Absolute Auto 0.2 K/mm3 (0-0.3); Eosinophils Percent Auto 3.9 % (0-4.4); Hematocrit 37.2 % (42.0-52.0); Hemoglobin 12.3 g/dL (14.0-18.0); Immature Granulocyte Absolute 0.01 K/mm3 (0.00-0.031); Immature Granulocyte Percent A 0.2 % (0-0.5); Lymphocytes Absolute Auto 1.19 K/mm3 (0.9-3.2); Lymphocytes Percent Auto 25.7 % (18.3-44.2); Mean Corpuscular HGB Conc 33.1 g/dl (32-36); Mean Corpuscular Hemoglobin 29.9 pg (26-34); Mean Corpuscular Volume 90.3 fl (80-100); Mean Platelet Volume 9.6 fl (7.4-10.4); Monocytes Absolute Auto 0.4 K/mm3 (0.1-0.6); Monocytes Percent Auto 7.8 % (2.6-8.5); Neutrophils Absolute Auto 2.8 K/mm3 (1.3-6.7); Neutrophils Percent Auto 61.3 % (45.5-73.1); Platelet Count Result 377 k/mm3 (150-375); Red Blood Count 4.12 M/mm3 (4.6-6.20); Red Cell Distribution Width 11.7 % (11.5-14.5); White Blood Count 4.6 K/mm3 (4.5-10.0)
--- NOTE | 2019-08-13 13:26 | PCDIET ---
Nutrition Follow-Up Complete: Nutrition Diagnosis: Underweight related to weight loss history as evidenced by visual assessment, patient report. Nutrition Goal: Patient to consume 75% of meals or greater. Goal in progress. Patient with average intake of 68% of meals since 08/10/19. Patient ate 100% of lunch today and reports continuing on Ensure Compact with meals. Diet is soft and bite size, 2 gram sodium. No new recommendations at this time. Last recorded weight is 66 kg. Recommend obtaining new weight. Bowel Motility: Last documented BM on 08/10/19. Labs Reviewed: Hgb (12.3), Hct (37.2), Na (135) Meds Noted: Albuterol, Abilify, Colace, Miralax Additional Notes: No documented skin breakdown. Will continue to monitor with same goals. Nutrition Monitoring and Evaluation: Follow up in 5 days.
[2019-08-13 13:33] LABS: Blood Urea Nitrogen 16 mg/dL (9-20); Carbon Dioxide 28 mmol/L (22-30); Chloride 98 mmol/L (98-107); Estimated CRCL calculation 76 ml/min; Estimated Glomerular Filt Rate > 60; Glucose 102 mg/dL (75-110); Potassium 4.1 mmol/L (3.4-5.0); Sodium 134 mmol/L (137-145)
[2019-08-13 14:00] VITALS: BP 113/75; PULSE 66; RESP 20; TEMP 37.1; O2SAT 98
--- NOTE | 2019-08-13 15:13 | PCCCNOTE ---
On 08/13/19, the student, [Yoan Stauffer ], provided care and completed [facility] documentation on this patient. I have reviewed the student's documentation and agree with the findings.
[2019-08-13 19:56] VITALS: BP 104/61; PULSE 55; RESP 16; TEMP 37.1; O2SAT 91
[2019-08-13] MEDS: levETIRAcetam 250 MG TABLET 750 MG PO (20:59)
[2019-08-14 05:35] VITALS: BP 110/74; PULSE 50; RESP 16; TEMP 36.7; O2SAT 95
[2019-08-14] MEDS: SALMETEROL XINAFOATE 50 MCG DISKUS 1 PUFF INHALATION ×2 (08:41→20:20)
[2019-08-14 08:45] VITALS: O2SAT 93
[2019-08-14] MEDS: APIXABAN 5 MG TABLET PO ×2 (08:57→19:52)
[2019-08-14] MEDS: ARIPIPRAZOLE 5 MG TABLET PO (08:57)
[2019-08-14] MEDS: levETIRAcetam 250 MG TABLET 500 MG PO (08:58)
[2019-08-14] MEDS: polyethylene glycoL 3350 17 GM POWD.PACK PO (08:58)
[2019-08-14] MEDS: GABAPENTIN 300 MG CAPSULE 600 MG PO ×2 (08:58→19:53)
[2019-08-14] MEDS: TAMSULOSIN HCL 0.4 MG CAPSULE PO (08:59)
[2019-08-14] MEDS: SERTRALINE HCL 50 MG TABLET 200 MG PO (08:59)
[2019-08-14] MEDS: SIMVASTATIN 20 MG TABLET 40 MG PO (08:59)
[2019-08-14] MEDS: DOCUSATE SODIUM 100 MG CAPSULE PO ×2 (09:01→19:52)
[2019-08-14 09:25] VITALS: PULSE 53; RESP 16; O2SAT 93
--- NOTE | 2019-08-14 10:26 | PM.PNCARD ---
Progress Note: A&P Assessment and Plan (1) Acute cerebrovascular accident: Code(s): I63.9 - Cerebral infarction, unspecified Status: Acute Assessment and Plan: MRI 08/02/2019 showed: Large acute right MCA distribution infarction, Small acute left SECURITY DISPATCHER distribution infarction, Old small right frontoparietal infarction. Stroke occurred while taking aspirin Multiple possible etiologies. 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 The shunt appears very small by GABE, however we were not able to have him Valsalva during the procedure because of his sedation so it could be larger at times. He also has hypertension, smokes and has some mild carotid disease. Recommend anticoagulation. Discussed with Dr. Beltre. Continue Eliquis 5 mg q.12 hours starting on 08/07/2019. Stop aspirin and Plavix. Consider closure of the PFO depending on the his situation after rehab etc. Continue statin (2) Patent foramen ovale: Code(s): Q21.1 - Atrial septal defect Status: Acute Assessment and Plan: PFO with atrial septal aneurysm as above (3) Hyperlipidemia: Code(s): E78.5 - Hyperlipidemia, unspecified Status: Chronic Assessment and Plan: Continue simvastatin (4) Tobacco abuse: Code(s): Z72.0 - Tobacco use Status: Acute Assessment and Plan: tobacco cessation imperative Subjective Date/time seen: 08/14/19 10:26 Interval history: Follow-up for: Acute CVA, PFO, hyperlipidemia and tobacco use Date of service: 08/14/2019 Subjective: Denied chest discomfort, shortness of breath or lightheadedness. walking halls. Doing okay Review of Systems Constitutional: Constitutional: Reports headache(s) and Reports weakness Eyes: Eyes: Reports change in vision ENT: Reports Normal hearing present and Reports headache(s) Cardiovascular: Cardiovascular: Denies chest pain, Denies pedal edema, Denies leg edema, Denies lightheadedness, Denies palpitations, Denies dyspnea and Denies dyspnea on exertion Respiratory: Respiratory: Denies cough, Denies dyspnea, Denies dyspnea on exertion and Denies wheezing Gastrointestinal: Gastrointestinal: Denies abdominal pain, Denies nausea and Denies vomiting Genitourinary: Genitourinary: Denies hematuria Musculoskeletal: Musculoskeletal: Reports abnormal gait and Denies arthralgias Integumentary/Breasts: Skin/Breast: Denies unusual bruising Neurologic: Reports Normal hearing present, Reports abnormal gait, Reports headache(s) and Reports weakness Psychiatric: Psychiatric: Denies anxiety Endocrine: Endocrine: Denies palpitations Allergic/Immunologic: Allergic/Immunologic: Denies wheezing Exam Const: General: cooperative and no acute distress Nutritional Appearance: thin Orientation/consciousness: patient oriented x3 HENMT: General nose exam: Normal nares present and no epistaxis Eyes: Alignment and Position: other (Gaze is deviated towards the right.) Neck: Neck: supple and no JVD Thyroid: thyroid normal Resp: Effort & Inspection: normal respiratory effort Auscultation: clear to auscultation bilaterally Cardio: Rate: regular rate Rhythm: regular rhythm Heart sounds: no murmurs GI: Auscultation: normal bowel sounds Skin: General skin exam: normal color and no rashes or lesions noted Neuro: General: patient oriented x3 Cranial nerves: Yes Normal hearing present Speech: normal speech Other: Gaze is deviated towards the right. Does not make eye contact. Extrem: General: normal to inspection and no edema Psych: Appearance: grossly normal Affect: Animated affect present Attitude: cooperative Objective Data Vital Signs Vital Signs: Vital Signs - 24 hr 08/13/19 14:00 08/13/19 19:56 08/14/19 05:35 Temperature 37.1 C 37.1 C 36.7 C Pulse Rate 66 55 L 50 L Respiratory Rate 20 16 16 Blo
[2019-08-14] MEDS: ACETAMINOPHEN 325 MG TABLET 650 MG PO (11:43)
[2019-08-14 14:00] VITALS: BP 106/60; PULSE 64; RESP 17; TEMP 36.8; O2SAT 93
--- NOTE | 2019-08-14 17:01 | WPDNEURORHBP ---
Subjective Date/time seen: 08/14/19 17:01 Interval history: this is a 64-year-old who is here after having a rather large right hemispheric stroke with left-sided hemiparesis she denies any new symptoms or complaints particularly denying any headache nausea vomiting chest pain shortness of breath fever chills sore throat his improving [facility] and doing fairly well Review of Systems Review of Systems: All systems reviewed & are unremarkable except as noted in HPI and below Functional Status Ambulation Ability Ability to Ambulate 10 Feet: Standby Assistance Ability to Ambulate 50 Feet With 2 Turns: Contact Guard Ability to Ambulate 150 Feet: Contact Guard Ambulation Assistive Devices: Hand Hold Transfers Ability Ability to Transfer In/Out of Chair: Contact Guard Exam Const: General: comfortable and no acute distress HENMT: General nose exam: Normal nares present Mouth: Yes moist mucous membranes Eyes: General: appearance normal, both eyes and all related structures Neck: Neck: supple and no JVD Resp: Effort & Inspection: normal respiratory effort Auscultation: clear to auscultation bilaterally Cardio: Rate: regular rate Rhythm: regular rhythm GI: GI Palp: Yes Soft to palpation Auscultation: normal bowel sounds Skin: General skin exam: normal color and no rashes or lesions noted Neuro: Other: patient left side is improved Extrem: General: normal to inspection Psych: Mental Status: mental status grossly normal Objective Data Vital Signs Vital Signs: Vital Signs - 24 hr 08/13/19 19:56 08/14/19 05:35 08/14/19 08:45 Temperature 37.1 C 36.7 C Pulse Rate 55 L 50 L Respiratory Rate 16 16 Blood Pressure 104/61 110/74 Pulse Oximetry 91 95 93 08/14/19 09:25 08/14/19 14:00 Temperature 36.8 C Pulse Rate 53 L 64 Respiratory Rate 16 17 Blood Pressure 106/60 Pulse Oximetry 93 93 Intake/Output Intake/Output: Intake & Output 08/11/19 08/12/19 08/13/19 08/14/19 23:59 23:59 23:59 23:59 Intake Total 036 594 2104 680 Balance 938 183 6302 680 Meds/Results Medications: Active Medications Generic Name Dose Route Start Last Admin Trade Name Freq PRN Reason Stop Dose Admin Acetaminophen 650 mg 08/05/19 16:07 08/14/19 11:43 Tylenol Tablet PO 650 mg Q4H PRN Administration Mild Pain (1-3) Or Fever Hydrocodone Bitart/Acetaminophen 1 tab 08/11/19 12:35 08/14/19 16:51 [place] 10-325 Mg PO 1 tab Q4H SHANNON Administration Albuterol 2 puff 08/05/19 16:07 Proventil Hfa INHALATION Q4H PRN shortness of breath Apixaban 5 mg 08/07/19 09:00 08/14/19 08:57 Eliquis PO 5 mg Q12HR SHANNON Administration Aripiprazole 5 mg 08/06/19 09:00 08/14/19 08:57 Abilify PO 5 mg DAILY SHANNON Administration Docusate Sodium 100 mg 08/05/19 21:00 08/14/19 09:01 Colace Capsule PO 100 mg Q12HR SHANNON Administration Fluticasone Propionate 2 puff 08/08/19 20:00 08/14/19 08:40 Flovent 44 Mcg INHALATION 2 puff Q12HRT SHANNON Administration Gabapentin 600 mg 08/05/19 21:00 08/14/19 08:58 Neurontin PO 600 mg Q12HR SHANNON Administration Levetiracetam 750 mg 08/05/19 21:00 08/13/19 20:59 Keppra Tablet PO 750 mg HS SHANNON Administration Levetiracetam 500 mg 08/06/19 09:00 08/14/19 08:58 Keppra Tablet PO 500 mg QAM SHANNON Administration Polyethylene Glycol 17 gm 08/07/19 09:00 08/14/19 08:58 Miralax PO 17 gm QAM SHANNON Administration Ropinirole HCl 0.5 mg 08/06/19 09:00 08/14/19 08:58 Ropinirole Hcl PO 0.5 mg DAILY SHANNON Administration Salmeterol Xinafoate 1 puff 08/08/19 20:00 08/14/19 08:41 Serevent 50 Mcg Diskus INHALATION 1 puff Q12HRT SHANNON Administration Sertraline HCl 200 mg 08/06/19 09:00 08/14/19 08:59 Zoloft PO 200 mg DAILY SHANNON Administration Simvastatin 40 mg 08/06/19 09:00 08/14/19 08:59 Zocor PO 40 mg DAILY SHANNON Administration Tamsulosin HCl 0.4 mg
[2019-08-14] MEDS: levETIRAcetam 250 MG TABLET 750 MG PO (19:51)
[2019-08-14 20:00] VITALS: BP 129/84; PULSE 52; RESP 16; TEMP 37.2; O2SAT 95
[2019-08-14 20:27] VITALS: O2SAT 95
[2019-08-15 05:29] VITALS: BP 115/80; PULSE 54; RESP 16; TEMP 37; O2SAT 93
[2019-08-15] MEDS: polyethylene glycoL 3350 17 GM POWD.PACK PO (08:26)
[2019-08-15] MEDS: levETIRAcetam 250 MG TABLET 500 MG PO (08:26)
[2019-08-15] MEDS: TAMSULOSIN HCL 0.4 MG CAPSULE PO (08:27)
[2019-08-15] MEDS: SERTRALINE HCL 50 MG TABLET 200 MG PO (08:27)
[2019-08-15] MEDS: DOCUSATE SODIUM 100 MG CAPSULE PO ×2 (08:28→20:08)
[2019-08-15] MEDS: GABAPENTIN 300 MG CAPSULE 600 MG PO ×2 (08:28→20:10)
[2019-08-15] MEDS: SIMVASTATIN 20 MG TABLET 40 MG PO (08:28)
[2019-08-15] MEDS: ARIPIPRAZOLE 5 MG TABLET PO (08:28)
[2019-08-15] MEDS: APIXABAN 5 MG TABLET PO ×2 (08:28→20:09)
[2019-08-15 08:30] VITALS: PULSE 58; RESP 16; O2SAT 93
[2019-08-15] MEDS: SALMETEROL XINAFOATE 50 MCG DISKUS 1 PUFF INHALATION ×2 (08:31→19:59)
[2019-08-15 08:32] VITALS: O2SAT 93
--- NOTE | 2019-08-15 10:46 | PM.PNCARD ---
Progress Note: A&P Assessment and Plan (1) Acute cerebrovascular accident: Code(s): I63.9 - Cerebral infarction, unspecified Status: Acute Assessment and Plan: MRI 08/02/2019 showed: Large acute right MCA distribution infarction, Small acute left WOOL MIXER distribution infarction, Old small right frontoparietal infarction. Stroke occurred while taking aspirin Multiple possible etiologies. 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 The shunt appears very small by GABE, however we were not able to have him Valsalva during the procedure because of his sedation so it could be larger at times. He also has hypertension, smokes and has some mild carotid disease. Recommend anticoagulation. Discussed with Dr. Beltre. Continue Eliquis 5 mg q.12 hours starting on 08/07/2019. Stop aspirin and Plavix. Consider closure of the PFO depending on the his situation after rehab etc. Continue statin (2) Patent foramen ovale: Code(s): Q21.1 - Atrial septal defect Status: Acute Assessment and Plan: PFO with atrial septal aneurysm as above (3) Hyperlipidemia: Code(s): E78.5 - Hyperlipidemia, unspecified Status: Chronic Assessment and Plan: Continue simvastatin (4) Tobacco abuse: Code(s): Z72.0 - Tobacco use Status: Acute Assessment and Plan: tobacco cessation imperative Subjective Date/time seen: 08/15/19 10:46 Interval history: Follow-up for: Acute CVA, PFO, hyperlipidemia and tobacco use Date of service: 08/15/2019 Subjective: Denied chest discomfort, shortness of breath or lightheadedness. resting in bed without complaints Review of Systems Constitutional: Constitutional: Reports headache(s) and Reports weakness Eyes: Eyes: Reports change in vision ENT: Reports Normal hearing present and Reports headache(s) Cardiovascular: Cardiovascular: Denies chest pain, Denies pedal edema, Denies leg edema, Denies lightheadedness, Denies palpitations, Denies dyspnea and Denies dyspnea on exertion Respiratory: Respiratory: Denies cough, Denies dyspnea, Denies dyspnea on exertion and Denies wheezing Gastrointestinal: Gastrointestinal: Denies abdominal pain, Denies nausea and Denies vomiting Genitourinary: Genitourinary: Denies hematuria Musculoskeletal: Musculoskeletal: Reports abnormal gait and Denies arthralgias Integumentary/Breasts: Skin/Breast: Denies unusual bruising Neurologic: Reports Normal hearing present, Reports abnormal gait, Reports headache(s) and Reports weakness Psychiatric: Psychiatric: Denies anxiety Endocrine: Endocrine: Denies palpitations Allergic/Immunologic: Allergic/Immunologic: Denies wheezing Exam Const: General: cooperative and no acute distress Nutritional Appearance: thin Orientation/consciousness: patient oriented x3 HENMT: General nose exam: Normal nares present and no epistaxis Eyes: Alignment and Position: other (Gaze is deviated towards the right.) Neck: Neck: supple and no JVD Thyroid: thyroid normal Resp: Effort & Inspection: normal respiratory effort Auscultation: clear to auscultation bilaterally Cardio: Rate: regular rate Rhythm: regular rhythm Heart sounds: no murmurs GI: Auscultation: normal bowel sounds Skin: General skin exam: normal color and no rashes or lesions noted Neuro: General: patient oriented x3 Cranial nerves: Yes Normal hearing present Speech: normal speech Other: Gaze is deviated towards the right. Does not make eye contact. Extrem: General: normal to inspection and no edema Psych: Appearance: grossly normal Affect: Animated affect present Attitude: cooperative Objective Data Vital Signs Vital Signs: Vital Signs - 24 hr 08/14/19 14:00 08/14/19 20:00 08/14/19 20:27 Temperature 36.8 C 37.2 C Pulse Rate 64 52 L Respiratory Rate 17 16 Blood P
[2019-08-15] MEDS: ACETAMINOPHEN 325 MG TABLET 650 MG PO ×2 (11:09→14:35)
[2019-08-15 14:00] VITALS: BP 121/58; PULSE 57; RESP 16; TEMP 36.8; O2SAT 94
--- NOTE | 2019-08-15 18:08 | WPDNEURORHBP ---
Subjective Date/time seen: 08/15/19 18:08 Interval history: this 64-year-old gentleman is here post stroke and improving overall neurological he denies any headache nausea vomiting chest pain shortness of breath he is on Eliquis because of bilateral strokes and most likely embolic in nature he also has PFO and [id number] shunt patient overall is significantly improving and doing much better no reoccurrence of the seizures were reported as he is on good amount of Keppra Review of Systems Review of Systems: All systems reviewed & are unremarkable except as noted in HPI and below Functional Status Ambulation Ability Ability to Ambulate 10 Feet: Standby Assistance Ability to Ambulate 50 Feet With 2 Turns: Contact Guard Ability to Ambulate 150 Feet: Contact Guard Ambulation Assistive Devices: Hand Hold Transfers Ability Ability to Transfer In/Out of Chair: Contact Guard Exam Const: General: comfortable HENMT: General nose exam: Normal nares present Mouth: Yes moist mucous membranes Eyes: General: appearance normal, both eyes and all related structures Neck: Neck: supple and no JVD Resp: Effort & Inspection: normal respiratory effort Auscultation: clear to auscultation bilaterally Cardio: Rate: regular rate Rhythm: regular rhythm GI: GI Palp: Yes Soft to palpation Auscultation: normal bowel sounds Skin: General skin exam: normal color and no rashes or lesions noted Neuro: Other: improving left-sided hemiparesis Extrem: General: normal to inspection Psych: Mental Status: mental status grossly normal Objective Data Vital Signs Vital Signs: Vital Signs - 24 hr 08/14/19 20:00 08/14/19 20:27 08/15/19 05:29 Temperature 37.2 C 37.0 C Pulse Rate 52 L 54 L Respiratory Rate 16 16 Blood Pressure 129/84 115/80 Pulse Oximetry 95 95 93 08/15/19 08:30 08/15/19 08:32 08/15/19 14:00 Temperature 36.8 C Pulse Rate 58 L 57 L Respiratory Rate 16 16 Blood Pressure 121/58 L Pulse Oximetry 93 93 94 Intake/Output Intake/Output: Intake & Output 08/12/19 08/13/19 08/14/19 08/15/19 23:59 23:59 23:59 23:59 Intake Total 960 1080 920 580 Balance 960 1080 920 580 Meds/Results Medications: Active Medications Generic Name Dose Route Start Last Admin Trade Name Freq PRN Reason Stop Dose Admin Acetaminophen 650 mg 08/05/19 16:07 08/15/19 14:35 Tylenol Tablet PO 650 mg Q4H PRN Administration Mild Pain (1-3) Or Fever Hydrocodone Bitart/Acetaminophen 1 tab 08/11/19 12:35 08/15/19 17:17 [place] 10-325 Mg PO 1 tab Q4H SHANNON Administration Albuterol 2 puff 08/05/19 16:07 Proventil Hfa INHALATION Q4H PRN shortness of breath Apixaban 5 mg 08/07/19 09:00 08/15/19 08:28 Eliquis PO 5 mg Q12HR SHANNON Administration Aripiprazole 5 mg 08/06/19 09:00 08/15/19 08:28 Abilify PO 5 mg DAILY SHANNON Administration Docusate Sodium 100 mg 08/05/19 21:00 08/15/19 08:28 Colace Capsule PO 100 mg Q12HR SHANNON Administration Fluticasone Propionate 2 puff 08/08/19 20:00 08/15/19 08:31 Flovent 44 Mcg INHALATION 2 puff Q12HRT SHANNON Administration Gabapentin 600 mg 08/05/19 21:00 08/15/19 08:28 Neurontin PO 600 mg Q12HR SHANNON Administration Levetiracetam 750 mg 08/05/19 21:00 08/14/19 19:51 Keppra Tablet PO 750 mg HS SHANNON Administration Levetiracetam 500 mg 08/06/19 09:00 08/15/19 08:26 Keppra Tablet PO 500 mg QAM SHANNON Administration Polyethylene Glycol 17 gm 08/07/19 09:00 08/15/19 08:26 Miralax PO 17 gm QAM SHANNON Administration Ropinirole HCl 0.5 mg 08/06/19 09:00 08/15/19 08:27 Ropinirole Hcl PO 0.5 mg DAILY SHANNON Administration Salmeterol Xinafoate 1 puff 08/08/19 20:00 08/15/19 08:31 Serevent 50 Mcg Diskus INHALATION 1 puff Q12HRT SHANNON Administration Sertraline HCl 200 mg 08/06/19 09:00 08/15/19 08:27 Zoloft PO 200 mg DAILY SHANNON Administration Simvastatin 40 mg
[2019-08-15 20:02] VITALS: O2SAT 93
[2019-08-15] MEDS: levETIRAcetam 250 MG TABLET 750 MG PO (20:10)
[2019-08-15 22:00] VITALS: BP 103/61; PULSE 52; RESP 20; TEMP 37; O2SAT 95
[2019-08-16] MEDS: SALMETEROL XINAFOATE 50 MCG DISKUS 1 PUFF INHALATION ×2 (05:35→20:39)
[2019-08-16 05:40] VITALS: O2SAT 94
[2019-08-16 06:00] VITALS: BP 114/67; PULSE 50; RESP 20; TEMP 36.8; O2SAT 94
[2019-08-16] MEDS: polyethylene glycoL 3350 17 GM POWD.PACK PO (08:39)
[2019-08-16] MEDS: GABAPENTIN 300 MG CAPSULE 600 MG PO ×2 (08:39→20:07)
[2019-08-16] MEDS: DOCUSATE SODIUM 100 MG CAPSULE PO ×2 (08:39→20:07)
[2019-08-16] MEDS: levETIRAcetam 250 MG TABLET 500 MG PO (08:40)
[2019-08-16] MEDS: APIXABAN 5 MG TABLET PO ×2 (08:40→20:07)
[2019-08-16] MEDS: ARIPIPRAZOLE 5 MG TABLET PO (08:40)
[2019-08-16] MEDS: SERTRALINE HCL 50 MG TABLET 200 MG PO (08:41)
[2019-08-16] MEDS: SIMVASTATIN 20 MG TABLET 40 MG PO (08:42)
[2019-08-16] MEDS: TAMSULOSIN HCL 0.4 MG CAPSULE PO (08:42)
[2019-08-16] MEDS: ACETAMINOPHEN 325 MG TABLET 650 MG PO (11:07)
--- NOTE | 2019-08-16 11:35 | WPDNEURORHBP ---
Subjective Date/time seen: 08/16/19 11:35 S/pRight MCA stroke in with newleft occipital stroke and acute stroke on the right side as well negative for AF but found to have PFO Review of Systems Review of Systems: All systems reviewed & are unremarkable except as noted in HPI and below Functional Status Ambulation Ability Ability to Ambulate 10 Feet: Standby Assistance Ability to Ambulate 50 Feet With 2 Turns: Standby Assistance Ability to Ambulate 150 Feet: Contact Guard Ambulation Assistive Devices: Hand Hold Transfers Ability Ability to Transfer In/Out of Chair: Standby Assistance Exam Const: General: cooperative, comfortable and no acute distress Nutritional Appearance: average body habitus Limitations: other limitations (visual) HENMT: Head: normal to inspection Ears: hearing grossly normal bilaterally General nose exam: Normal external nose present and No nasal discharge present Mouth: Yes Normal oral and palatal mucosa present Eyes: General: appearance normal, both eyes and all related structures Neck: Neck: full ROM and no lymphadenopathy Chest: Chest palpation & inspection: normal inspection of the chest Resp: Effort & Inspection: normal respiratory effort Auscultation: clear to auscultation bilaterally Cardio: Rate: regular rate Rhythm: regular rhythm GI: Percussion: Yes normal to percussion Auscultation: normal bowel sounds Skin: General skin exam: no rashes or lesions noted Neuro: General: patient oriented x3, moves all extremities and Unable to assess gait Cranial nerves: Yes Equal, round and reactive pupils present, Yes Nystagmus not present, Yes Midline tongue present and Yes Ability to bilaterally rotate head present Cognition (Neuro): normal cognition Speech: normal speech Gait exam (Neuro): Unable to assess gait Motor exam (neuro): Abnormal motor strength present Psych: Appearance: grossly normal Objective Data Vital Signs Vital Signs: Vital Signs - 24 hr 08/15/19 14:00 08/15/19 20:02 08/15/19 22:00 Temperature 36.8 C 37.0 C Pulse Rate 57 L 52 L Respiratory Rate 16 20 Blood Pressure 121/58 L 103/61 Pulse Oximetry 94 93 95 08/16/19 05:40 08/16/19 06:00 Temperature 36.8 C Pulse Rate 50 L Respiratory Rate 20 Blood Pressure 114/67 Pulse Oximetry 94 94 Intake/Output Intake/Output: Intake & Output 08/13/19 08/14/19 08/15/19 08/16/19 23:59 23:59 23:59 23:59 Intake Total 1080 920 820 360 Balance 1080 920 820 360 Meds/Results Medications: Active Medications Generic Name Dose Route Start Last Admin Trade Name Freq PRN Reason Stop Dose Admin Acetaminophen 650 mg 08/05/19 16:07 08/16/19 11:07 Tylenol Tablet PO 650 mg Q4H PRN Administration Mild Pain (1-3) Or Fever Hydrocodone Bitart/Acetaminophen 1 tab 08/11/19 12:35 08/16/19 08:39 [place] 10-325 Mg PO 1 tab Q4H SHANNON Administration Albuterol 2 puff 08/05/19 16:07 Proventil Hfa INHALATION Q4H PRN shortness of breath Apixaban 5 mg 08/07/19 09:00 08/16/19 08:40 Eliquis PO 5 mg Q12HR SHANNON Administration Aripiprazole 5 mg 08/06/19 09:00 08/16/19 08:40 Abilify PO 5 mg DAILY SHANNON Administration Docusate Sodium 100 mg 08/05/19 21:00 08/16/19 08:39 Colace Capsule PO 100 mg Q12HR SHANNON Administration Fluticasone Propionate 2 puff 08/08/19 20:00 08/16/19 05:35 Flovent 44 Mcg INHALATION 2 puff Q12HRT SHANNON Administration Gabapentin 600 mg 08/05/19 21:00 08/16/19 08:39 Neurontin PO 600 mg Q12HR SHANNON Administration Levetiracetam 750 mg 08/05/19 21:00 08/15/19 20:10 Keppra Tablet PO 750 mg HS SHANNON Administration Levetiracetam 500 mg 08/06/19 09:00 08/16/19 08:40 Keppra Tablet PO 500 mg QAM SHANNON Administration Polyethylene Glycol 17 gm 08/07/19 09:00 08/16/19 08:39 Miralax PO 17 gm QAM SHANNON Administration Ropinirole HCl 0.5 mg 08/06/19 09:00 08/16/19 08:41 Ropinirole Hcl PO 0.5 mg
[2019-08-16 14:00] VITALS: BP 103/64; PULSE 62; RESP 18; TEMP 36.8; O2SAT 95
[2019-08-16 20:00] VITALS: PULSE 72; RESP 18; O2SAT 95
[2019-08-16] MEDS: levETIRAcetam 250 MG TABLET 750 MG PO (20:08)
[2019-08-16 22:00] VITALS: BP 116/68; PULSE 51; RESP 18; TEMP 37; O2SAT 95
[2019-08-17 06:00] VITALS: BP 107/72; PULSE 54; RESP 18; TEMP 37.1; O2SAT 95
[2019-08-17 08:00] VITALS: PULSE 80; RESP 18; O2SAT 97
[2019-08-17] MEDS: SIMVASTATIN 20 MG TABLET 40 MG PO (08:06)
[2019-08-17] MEDS: GABAPENTIN 300 MG CAPSULE 600 MG PO ×2 (08:07→19:53)
[2019-08-17] MEDS: ARIPIPRAZOLE 5 MG TABLET PO (08:07)
[2019-08-17] MEDS: TAMSULOSIN HCL 0.4 MG CAPSULE PO (08:07)
[2019-08-17] MEDS: APIXABAN 5 MG TABLET PO ×2 (08:07→19:53)
[2019-08-17] MEDS: levETIRAcetam 250 MG TABLET 500 MG PO (08:07)
[2019-08-17] MEDS: SERTRALINE HCL 50 MG TABLET 200 MG PO (08:08)
[2019-08-17] MEDS: polyethylene glycoL 3350 17 GM POWD.PACK PO (08:08)
[2019-08-17] MEDS: DOCUSATE SODIUM 100 MG CAPSULE PO ×2 (08:09→19:55)
[2019-08-17 08:30] VITALS: O2SAT 93
[2019-08-17 14:00] VITALS: BP 105/79; PULSE 80; RESP 19; TEMP 36.9; O2SAT 97
[2019-08-17] MEDS: ACETAMINOPHEN 325 MG TABLET 650 MG PO (14:42)
--- NOTE | 2019-08-17 14:50 | WPDNEURORHBP ---
Subjective Date/time seen: 08/17/19 14:50 Interval history: this 64-year-old is here because of stroke any has done remarkable improvement according to our rehab team he denies any headache nausea vomiting chest pain shortness of breath his memory deficit in the neglect is also improving denies any headache nausea vomiting chest pain shortness of breath fever chills sore throat Review of Systems Review of Systems: All systems reviewed & are unremarkable except as noted in HPI and below Functional Status Ambulation Ability Ability to Ambulate 10 Feet: Independent Ability to Ambulate 50 Feet With 2 Turns: Independent Ability to Ambulate 150 Feet: Independent Ambulation Assistive Devices: None Transfers Ability Ability to Transfer In/Out of Chair: Independent Exam Const: General: comfortable and no acute distress HENMT: General nose exam: Normal nares present Mouth: Yes moist mucous membranes Eyes: General: appearance normal, both eyes and all related structures Neck: Neck: supple and no JVD Resp: Effort & Inspection: normal respiratory effort Auscultation: clear to auscultation bilaterally Cardio: Rate: regular rate Rhythm: regular rhythm GI: GI Palp: Yes Soft to palpation Auscultation: normal bowel sounds Skin: General skin exam: normal color and no rashes or lesions noted Neuro: Other: patient is awake and alert and has significant improvement overall neurological deficit H has been documented before Extrem: General: normal to inspection Psych: Mental Status: mental status grossly normal Objective Data Vital Signs Vital Signs: Vital Signs - 24 hr 08/16/19 20:00 08/16/19 22:00 08/17/19 06:00 Temperature 37.0 C 37.1 C Pulse Rate 72 51 L 54 L Respiratory Rate 18 18 18 Blood Pressure 116/68 107/72 Pulse Oximetry 95 95 95 08/17/19 14:00 Temperature 36.9 C Pulse Rate 80 Respiratory Rate 19 Blood Pressure 105/79 Pulse Oximetry 97 Intake/Output Intake/Output: Intake & Output 08/14/19 08/15/19 08/16/19 08/17/19 23:59 23:59 23:59 23:59 Intake Total 920 820 840 480 Balance 920 820 840 480 Meds/Results Medications: Active Medications Generic Name Dose Route Start Last Admin Trade Name Freq PRN Reason Stop Dose Admin Acetaminophen 650 mg 08/05/19 16:07 08/17/19 14:42 Tylenol Tablet PO 650 mg Q4H PRN Administration Mild Pain (1-3) Or Fever Hydrocodone Bitart/Acetaminophen 1 tab 08/11/19 12:35 08/17/19 12:30 [place] 10-325 Mg PO 1 tab Q4H SHANNON Administration Albuterol 2 puff 08/05/19 16:07 Proventil Hfa INHALATION Q4H PRN shortness of breath Apixaban 5 mg 08/07/19 09:00 08/17/19 08:07 Eliquis PO 5 mg Q12HR SHANNON Administration Aripiprazole 5 mg 08/06/19 09:00 08/17/19 08:07 Abilify PO 5 mg DAILY SHANNON Administration Docusate Sodium 100 mg 08/05/19 21:00 08/17/19 08:09 Colace Capsule PO 100 mg Q12HR SHANNON Administration Fluticasone Propionate 2 puff 08/08/19 20:00 08/17/19 11:02 Flovent 44 Mcg INHALATION Not Given Q12HRT SHANNON Gabapentin 600 mg 08/05/19 21:00 08/17/19 08:07 Neurontin PO 600 mg Q12HR SHANNON Administration Levetiracetam 750 mg 08/05/19 21:00 08/16/19 20:08 Keppra Tablet PO 750 mg HS SHANNON Administration Levetiracetam 500 mg 08/06/19 09:00 08/17/19 08:07 Keppra Tablet PO 500 mg QAM SHANNON Administration Polyethylene Glycol 17 gm 08/07/19 09:00 08/17/19 08:08 Miralax PO 17 gm QAM SHANNON Administration Ropinirole HCl 0.5 mg 08/06/19 09:00 08/17/19 08:08 Ropinirole Hcl PO 0.5 mg DAILY SHANNON Administration Salmeterol Xinafoate 1 puff 08/08/19 20:00 08/17/19 11:02 Serevent 50 Mcg Diskus INHALATION Not Given Q12HRT SHANNON Sertraline HCl 200 mg 08/06/19 09:00 08/17/19 08:08 Zoloft PO 200 mg DAILY SHANNON Administration Simvastatin 40 mg 08/06/19 09:00 08/17/19 08:06 Zocor PO 40 mg DAILY SHANNON Administration Tamsul
[2019-08-17] MEDS: levETIRAcetam 250 MG TABLET 750 MG PO (19:53)
[2019-08-17] MEDS: SALMETEROL XINAFOATE 50 MCG DISKUS 1 PUFF INHALATION (20:43)
[2019-08-17 20:51] VITALS: O2SAT 94
[2019-08-17 22:00] VITALS: BP 114/73; PULSE 53; RESP 20; TEMP 37.3; O2SAT 97
[2019-08-18 06:00] VITALS: BP 105/58; PULSE 56; RESP 20; TEMP 37.2; O2SAT 99
[2019-08-18] MEDS: SALMETEROL XINAFOATE 50 MCG DISKUS 1 PUFF INHALATION (07:31)
[2019-08-18 07:32] VITALS: O2SAT 92
[2019-08-18] MEDS: APIXABAN 5 MG TABLET PO (08:31)
[2019-08-18] MEDS: ARIPIPRAZOLE 5 MG TABLET PO (08:31)
[2019-08-18] MEDS: GABAPENTIN 300 MG CAPSULE 600 MG PO (08:32)
[2019-08-18] MEDS: polyethylene glycoL 3350 17 GM POWD.PACK PO (08:33)
[2019-08-18] MEDS: levETIRAcetam 250 MG TABLET 500 MG PO (08:33)
[2019-08-18] MEDS: TAMSULOSIN HCL 0.4 MG CAPSULE PO (08:34)
[2019-08-18] MEDS: SIMVASTATIN 20 MG TABLET 40 MG PO (08:34)
[2019-08-18] MEDS: SERTRALINE HCL 50 MG TABLET 200 MG PO (08:34)
[2019-08-18] MEDS: DOCUSATE SODIUM 100 MG CAPSULE PO (12:03)
--- NOTE | 2019-08-24 15:07 | PM.DS ---
DS: Admitting Diagnosis Admitting Diagnosis Admitting Diagnosis: Cerebral infarction due to unspecified occlusion or stenosis of right middle cerebral artery DS: Discharge Diagnosis Discharge Diagnosis (1) Headache: Code(s): R51 - Headache Status: Acute (2) Patent foramen ovale: Code(s): Q21.1 - Atrial septal defect Status: Acute (3) Benign prostatic hyperplasia: Code(s): N40.0 - Benign prostatic hyperplasia without lower urinary tract symptoms Status: Chronic (4) Depression with anxiety: Code(s): F41.8 - Other specified anxiety disorders Status: Acute (5) Hyperlipidemia: Code(s): E78.5 - Hyperlipidemia, unspecified Status: Chronic (6) Essential hypertension: Code(s): I10 - Essential (primary) hypertension Status: Chronic (7) Acute cerebrovascular accident: Code(s): I63.9 - Cerebral infarction, unspecified Status: Acute (8) Tobacco abuse: Code(s): Z72.0 - Tobacco use Status: Acute (9) Chronic obstructive pulmonary disease: Qualifiers: COPD type: unspecified COPD Qualified Code(s): J44.9 - Chronic obstructive pulmonary disease, unspecified Code(s): J44.9 - Chronic obstructive pulmonary disease, unspecified Status: Chronic (10) Seizure disorder: Onset Date: ~07/2016 Code(s): G40.909 - Epilepsy, unspecified, not intractable, without status epilepticus Status: Chronic (11) Acute ischemic stroke: Code(s): I63.9 - Cerebral infarction, unspecified Status: Acute (12) BMI less than 19,adult: Code(s): Z68.1 - Body mass index (BMI) 19.9 or less, adult Status: Acute (13) COPD exacerbation: Code(s): J44.1 - Chronic obstructive pulmonary disease with (acute) exacerbation Status: Acute (14) Lung nodule: Code(s): R91.1 - Solitary pulmonary nodule Status: Acute (15) Nocturnal hypoxemia: Code(s): G47.34 - Idiopathic sleep related nonobstructive alveolar hypoventilation Status: Acute (16) Shortness of breath: Code(s): R06.02 - Shortness of breath Status: Acute DS: Summary Hospital Course Reason for hospitalization: the patient was admitted with the above-mentioned conditions primarily due to stroke has been followed by the chief maintenance supervisor also please refer to my initial history and physical examination and follow-up notes he received the PT OT and speech was able to achieve the following independent measures Hospital Course: at the time of discharge the patient was eating independent oral hygiene was independent toileting was independent bathing was set up her body dressing was independent lower body dressing was independent footwear was independent rolling in bed independent sitting to lying independent lying to sitting independent [id number] independent chair transfers independent toilet transfers independent car transfers independent walking 10 feet independent walking 50 feet with 2 turns independent walking 150 feet independent walking 10 feet uneven surfaces independent Refugio step independent 4 steps depend 12 steps and depend picking up objects independent wheelchair 50 feet not applicable wheelchair and 50 feet not applicable the patient was discharged home with significant improvement is neurological deficit with outpatient PT Time Spent with Patient Time attestation: Total time spent providing and/or coordinating discharge services: Exam Const: General: comfortable and no acute distress HENMT: General nose exam: Normal nares present Mouth: Yes moist mucous membranes Eyes: General: appearance normal, both eyes and all related structures Neck: Neck: supple and no JVD Resp: Effort & Inspection: normal respiratory effort Auscultation: clear to auscultation bilaterally Cardio: Rate: regular rate Rhythm: regular rhythm GI: GI Palp: Yes Soft to palpation Auscultation: normal bowel sounds Skin:
== END 2019-08-18 12:52 | disposition home or self-care (01) | DRG 57 ==
PROVIDERS: Nurse Practitioner Adult Health; Admitting Provider Psychiatry & Neurology Neurology; Visit Provider Psychiatry & Neurology Neurology
DX: I69.354 Hemiplegia and hemiparesis following cerebral infarction affecting left non-dominant side (principal); Q21.1 Atrial septal defect; I69.398 Other sequelae of cerebral infarction; H53.40 Unspecified visual field defects; I65.29 Occlusion and stenosis of unspecified carotid artery; E78.5 Hyperlipidemia, unspecified; F17.210 Nicotine dependence, cigarettes, uncomplicated; F41.8 Other specified anxiety disorders; G40.909 Epilepsy, unspecified, not intractable, without status epilepticus; G47.34 Idiopathic sleep related nonobstructive alveolar hypoventilation; I10 Essential (primary) hypertension; J44.9 Chronic obstructive pulmonary disease, unspecified; N40.0 Benign prostatic hyperplasia without lower urinary tract symptoms; R91.1 Solitary pulmonary nodule; Z66 Do not resuscitate
CPT/HCPCS: 36415; 80048; 80061; 85025; 85027; 92507; 92523; 93970; 94640; 97110; 97116; 97129; 97130; 97161; 97166; 97530; 97535; A9270; J1650

== ENCOUNTER 2019-09-07 10:40 | Outpatient (CLI) | payer MEDICARE, OTHER, SELFPAY ==
[2019-09-07 11:16] LABS: Basophils Percent Auto 0.8 % (0.2-1.2); Eosinophils Absolute Auto 0.3 K/mm3 (0-0.3); Eosinophils Percent Auto 6.7 % (0-4.4); Hematocrit 42.3 % (42.0-52.0); Hemoglobin 13.9 g/dL (14.0-18.0); Immature Granulocyte Absolute 0.01 K/mm3 (0.00-0.031); Immature Granulocyte Percent A 0.3 % (0-0.5); Lymphocytes Percent Auto 32.1 % (18.3-44.2); Mean Corpuscular HGB Conc 32.9 g/dl (32-36); Mean Corpuscular Hemoglobin 29.6 pg (26-34); Mean Platelet Volume 9.5 fl (7.4-10.4); Monocytes Absolute Auto 0.4 K/mm3 (0.1-0.6); Monocytes Percent Auto 11.2 % (2.6-8.5); Neutrophils Absolute Auto 1.8 K/mm3 (1.3-6.7); Neutrophils Percent Auto 48.9 % (45.5-73.1); Platelet Count Result 273 k/mm3 (150-375); Red Cell Distribution Width 12.6 % (11.5-14.5); White Blood Count 3.7 K/mm3 (4.5-10.0)
[2019-09-07 11:27] LABS: Blood Urea Nitrogen 10 mg/dL (9-20); Calcium 9.2 mg/dL (8.4-10.2); Carbon Dioxide 27 mmol/L (22-30); Chloride 102 mmol/L (98-107); Estimated Glomerular Filt Rate > 60; Glucose 77 mg/dL (75-110); Potassium 4.5 mmol/L (3.4-5.0); Sodium 137 mmol/L (137-145)
[2019-09-07 14:22] LABS: Add Urine Microscopic? YES; Appearance Urine Clear (Clear); Bacteria Urine Trace /hpf; Bilirubin Urine Negative (Negative); Blood Urine Negative (Negative); Color Urine Yellow (Yellow); Glucose Urine UA Negative (Negative); Ketones Urine Trace mg/dL (Negative); Leukocyte Esterase Ur 1+ LEU/UL (NEGATIVE); Mucus Urine Rare /lpf; Nitrate Urine Negative (Negative); Protein Urine Negative (Negative); Specific Grav Ur 1.029 (1.001-1.035)
== END 2019-09-07 10:41 | disposition home or self-care (01) ==
DX: Z01.818 Encounter for other preprocedural examination (principal)
CPT/HCPCS: 36415; 80048; 81001; 85025

== ENCOUNTER 2019-09-16 07:03 | Emergency (ER) | payer MEDICARE, OTHER, SELFPAY ==
--- NOTE | ~2019-09-16 | CT_ITS ---
EXAMINATION: CT brain wo con INDICATION: Headache COMPARISON: None TECHNIQUE: Standard unenhanced head CT. The dose-length product (DLP) was 908.00 mGy-cm. The mA was a djusted according to patient size. Iterative reconstruction technique was employed. FINDINGS: There are evolving areas of prior infarction involving the right temporal, parietal, and oc cipital lobes as well as the medial left occipital lobe. Ribbonlike hyperdensity involving the cortex of the affected regions is now present. There is no evidence of acute infarction or intracranial hem orrhage. The ventricles are normal. There is no abnormal mass effect or midline shift. The basal cist erns are patent. The orbits are normal. The paranasal sinuses, mastoids and calvarium are normal. IMPRESSION: 1. No acute intracranial abnormality. 2. Evolving infarcts in the right temporal, parietal, and occipital lobes and left occipital lobe wit h cortical laminar necrosis now seen in the affected regions. Reviewed, dictated and finalized at location A. IMPRESSION: 1. No acute intracranial abnormality. 2. Evolving infarcts in the right temporal, parietal, and occipital lobes and l eft occipital lobe with cortical laminar necrosis now seen in the affected elizabeth ons.
[2019-09-16 07:05] VITALS: BP 131/106; PULSE 77; RESP 13; TEMP 36.8; O2SAT 95
--- NOTE | 2019-09-16 07:06 | ED.HA ---
HPI - Headache General Chief Complaint: Headache Stated Complaint: neuro symptoms Time Seen by Provider: 09/16/19 07:06 History of Present Illness HPI Narrative: BIBEMS from home for concerns about a possible stroke. His girlfriend was concerned this morning due to the fact that he seemed confused. He was also noted to be fidgeting with his hands and she thought this could be seizure activity. The pateint denies any of this, but does have a severe headache. This has been present since having an ischemic stroke on august, but seems to be getting worse. He is prescribed norco for the headache. No motor symptoms. He does have residual LUE weakness and delayed speech from the previous stroke. Related Data Allergies Allergy/AdvReac Type Severity Reaction Status Date / Time Penicillins Allergy Unknown unk Verified 09/16/19 07:14 nicotine [From Nicoderm ] AdvReac Hallucinati Verified 09/16/19 07:14 ng Review of Systems Review of Systems: All systems reviewed & are unremarkable except as noted in HPI and below Constitutional: Constitutional: Denies fever(s) Cardiovascular: Cardiovascular: Denies chest pain Respiratory: Respiratory: Denies dyspnea Gastrointestinal: Gastrointestinal: Reports vomiting (a few days ago) Neurologic: Reports headache(s) [facility] Past Medical History Medical History Benign prostatic hyperplasia Cerebrovascular accident (~03/2017) 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 Chronic obstructive pulmonary disease Degenerative disc disease Depression with anxiety Essential hypertension Gastroesophageal reflux disease Headache Hyperlipidemia Seizure disorder (~07/2016) Tobacco abuse Surgical History Surgical History History of inguinal hernia repair History of lumbar surgery (~03/2016) History of tonsillectomy History of vocal cord polypectomy Family History Family History Mother Hypertension Acute myocardial infarction Sibling Acute myocardial infarction Family history of lung cancer Father Acute myocardial infarction Social History Social History Social History: The patient lives in [place] with his significant other. He is and has 5 children. 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 He smokes about 1/3 of a pack of cigarettes per day and has for almost 50 years. He denies alcohol and illicit substance use. He designates his girlfriend, Ann-Marie Hoang, as his surrogate decision maker and he wishes to be a do not resuscitate. Smoking status: Current every day smoker Tobacco type: cigarettes Second hand tobacco smoke exposure: Yes Alcohol intake: never Substance use: never Spiritual care concerns: No Exam Const: General: no acute distress and alert Nutritional Appearance: thin Orientation/consciousness: patient oriented x3 HENMT: Mouth: Yes dry mucous membranes Eyes: Pupils: Equal, round and reactive pupils present Resp: Effort & Inspection: normal respiratory effort Auscultation: clear to auscultation bilaterally Cardio: Rate: regular rate Rhythm: regular rhythm GI: GI Palp: Yes Soft to palpation and No Tenderness to palpation present (GI) Skin: General skin exam: normal color Neuro: General: patient oriented x3, moves all extremities and CN's II-XI intact bilaterally Speech: normal speech Extrem: General: normal to inspection Course Vital Signs Vital signs: Vital Signs Temperature 36.8 C 09/16/19 07:05 Pulse Rate 77 09/16/19 07:05 Respiratory Rate 13 09/16/19 07:05 Blood Pressure 131/106 H 09/16/19 07:05 Pulse Oximetry 95 09/16/19 07:05 Temperature 36.8 C 09/16/19 07:05 Pulse Rate 65 09/16/19 09:34 Re
--- NOTE | 2019-09-16 07:20 | ECG_ITS ---
Measurements Intervals [place] Rate: 76 P: 65 HI: 147 QRS: 38 QRSD: 101 T: 73 QT: 379 QTc: 428 Interpretive Statements SINUS RHYTHM BASELINE ARTIFACT- II, III, AVF, V1 NORMAL ECG Electronically Signed On 09-16-2019 8:06:19 CDT by Sorin Obrien D.O.
[2019-09-16] MEDS: METOCLOPRAMIDE HCL INJ 10 MG/2 ML VIAL IV PUSH (07:33)
[2019-09-16] MEDS: SODIUM CHLORIDE 0.9% IV 1,000 ML 999 ML IV CONT (07:33)
[2019-09-16 07:35] LABS: Basophils Percent Auto 0.5 % (0.2-1.2); Eosinophils Absolute Auto 0.1 K/mm3 (0-0.3); Eosinophils Percent Auto 1.4 % (0-4.4); Hematocrit 40.6 % (42.0-52.0); Hemoglobin 13.7 g/dL (14.0-18.0); Immature Granulocyte Absolute 0.02 K/mm3 (0.00-0.031); Immature Granulocyte Percent A 0.3 % (0-0.5); Lymphocytes Absolute Auto 0.96 K/mm3 (0.9-3.2); Lymphocytes Percent Auto 16.4 % (18.3-44.2); Mean Corpuscular HGB Conc 33.7 g/dl (32-36); Mean Corpuscular Hemoglobin 29.3 pg (26-34); Mean Corpuscular Volume 86.9 fl (80-100); Monocytes Absolute Auto 0.4 K/mm3 (0.1-0.6); Monocytes Percent Auto 6.3 % (2.6-8.5); Neutrophils Absolute Auto 4.4 K/mm3 (1.3-6.7); Neutrophils Percent Auto 75.1 % (45.5-73.1); Platelet Count Result 313 k/mm3 (150-375); Red Blood Count 4.67 M/mm3 (4.6-6.20); White Blood Count 5.8 K/mm3 (4.5-10.0)
[2019-09-16 07:45] LABS: Alanine Aminotransferase 32 U/L (4-50); Albumin Level 4.7 g/dL (3.5-5.1); Alkaline Phosphatase 96 U/L (38-126); Aspartate Amino Transferase 51 U/L (17-59); Bilirubin,Total 0.6 mg/dL (0.2-1.3); Blood Urea Nitrogen 11 mg/dL (9-20); Calcium 9.7 mg/dL (8.4-10.2); Carbon Dioxide 23 mmol/L (22-30); Chloride 100 mmol/L (98-107); Estimated Glomerular Filt Rate > 60; Glucose 96 mg/dL (75-110); Potassium 4.2 mmol/L (3.4-5.0); Sodium 133 mmol/L (137-145)
[2019-09-16 07:58] LABS: INR 1.2
[2019-09-16 08:00] LABS: Partial Thromboplastin Time 33.9 SECONDS (22.3-36.8)
[2019-09-16 08:41] LABS: Add Urine Microscopic? YES; Appearance Urine Clear (Clear); Bacteria Urine Trace /hpf; Bilirubin Urine Negative (Negative); Blood Urine Negative (Negative); Color Urine Yellow (Yellow); Glucose Urine UA Negative (Negative); Ketones Urine Negative (Negative); Leukocyte Esterase Ur Trace LEU/UL (Negative); Mucus Urine Rare /lpf; Nitrate Urine Negative (Negative); Protein Urine Negative (Negative); Squamous Epithelial Cell Urine Rare /hpf (Few); Urobilinogen Urine Negative mg/dL (<2.0); WBC Urine 0-3 /hpf
[2019-09-16 08:42] LABS: Specific Grav Ur 1.031 (1.001-1.035)
[2019-09-16 09:34] VITALS: BP 136/84; PULSE 65; RESP 21; O2SAT 96
[2019-09-16] MEDS: MORPHINE SULFATE 2 MG/ML INJ IV PUSH (10:30)
== END 2019-09-16 10:44 | disposition home or self-care (01) ==
PROVIDERS: Emergency Provider Emergency Medicine
DX: R51 Headache (principal); N40.0 Benign prostatic hyperplasia without lower urinary tract symptoms; J44.9 Chronic obstructive pulmonary disease, unspecified; I10 Essential (primary) hypertension; K21.9 Gastro-esophageal reflux disease without esophagitis; E78.5 Hyperlipidemia, unspecified; I69.928 Other speech and language deficits following unspecified cerebrovascular disease; I69.934 Monoplegia of upper limb following unspecified cerebrovascular disease affecting left non-dominant side; F17.210 Nicotine dependence, cigarettes, uncomplicated
CPT/HCPCS: 36415; 70450; 80053; 81001; 85025; 85610; 85730; 93005; 96361; 96374; 96375; 99284; A9270; J2270; J2765; J7030

== ENCOUNTER 2019-09-28 11:00 | Outpatient (RCR) | payer MEDICARE, OTHER, SELFPAY ==
--- NOTE | 2019-09-02 11:30 | PTOPEVAL ---
PHYSICAL THERAPY EVALUATION AND PLAN OF CARE 09-02-2019 The PT evaluation was completed for the diagnosis of CVA. His plan of treatment is scheduled for 2x/week for 4 weeks. Thank you for referring Cem Osman to [facility]. Please review, sign, date and return this plan of care ANTHONY. I agree with and certify that the following plan of care is medically necessary. Referring Physician Date Attending Provider: Shahid Glover MD *PT Outpatient Evaluation Start: 09/02/19 10:04 Document 09/02/19 10:00 BRINA (Rec: 09/02/19 11:13 BRIAN [id number]) Outpatient Past Medical History Past Medical History Source of Past Medical History Patient,Family/Significant Other Neurological History Hx Cerebrovascular Accident (CVA) Yes: 2x- Mar and August 02, 2019 Hx Migraine Yes: constant head ache Hx Seizures Yes: on meds, occur during CVA Hx Transient Ischemic Attacks (TIA) Yes: 2x- R and L cerebellum Cardiovascular History Hx Hypercholesterolemia Yes: med Hx Other Cardiac Disorders Yes: loop recorder for syncopal episodes Respiratory History Hx Chronic Obstructive Pulmonary Disease Yes (COPD) Hx Other Respiratory Disorders Yes: home o2 2 liters nasal cannula at bedtime Gastrointestinal History Hx Gastrointestinal Disorders No Significant History Genitourinary History Hx Genitourinary Disorders No Significant History Musculoskeletal History Hx Back Pain Yes Hx Other Musculoskeletal Disorders Yes: back surgery/ LBP chronic Hematological History Hx Hematological Disorders No Significant History Endocrine History Hx Endocrine Disorders No Significant History HEENT History Hx Tonsillectomy Yes Hx Other HEENT Disorders Yes: [place], prev tested, not interested in hearing aide Integumentary History Hx Skin Disorders No Significant History Reproductive History Hx Reproductive Disorders No Significant History Psychosocial History Hx Attention Deficit Disorder Yes Pain History History of Any Previous or Ongoing No Significant History Instance of Pain Anesthesia History Hx Anesthesia Reactions No Significant History Other History Hx Other Medical Conditions Yes: recent dx hole in heart - surgeon consult to see soon Evaluation Information Problem Diagnosis CVA Onset August 02, 2019 Subjective Information in pt and rehab; home August 17; Query Text:As Reported By Patient/ Family Prior Level of Function Activity Level (Last 3 Months) 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
--- NOTE | 2019-09-02 11:52 | OTOPEVAL ---
OCCUPATIONAL THERAPY EVALUATION REPORT Thank you for referring Cem Osman to [facility] [place]. Skilled OT indicated 2x/week for 4 weeks. Please review, sign, date and return this plan of care ANTHONY. I agree with and certify that the following plan of care is medically necessary. Referring Physician Date Referring Provider: Shahid Glover MD *OT Outpatient Evaluation Therapy Assessment Status Assessment Status Assessment Status Evaluation Outpatient Past Medical History Neurological History Hx Cerebrovascular Accident (CVA) Yes Hx Transient Ischemic Attacks (TIA) Yes Hx Other Neurological Disorders Yes: seizure Cardiovascular History Hx Hypercholesterolemia Yes Hx Other Cardiac Disorders Yes: loop recorder for syncopal episodes Respiratory History Hx Chronic Obstructive Pulmonary Disease Yes (COPD) Hx Other Respiratory Disorders Yes: home o2 2 liters nasal cannula at bedtime Gastrointestinal History Hx Gastrointestinal Disorders No Significant History Genitourinary History Hx Genitourinary Disorders No Significant History Musculoskeletal History Hx Other Musculoskeletal Disorders Yes: back surgery 5-6 years ago Hematological History Hx Hematological Disorders No Significant History Endocrine History Hx Endocrine Disorders No Significant History HEENT History Hx Tonsillectomy Yes Integumentary History Hx Skin Disorders No Significant History Reproductive History Hx Reproductive Disorders No Significant History Psychosocial History Hx Attention Deficit Disorder Yes Pain History History of Any Previous or Ongoing No Significant History Instance of Pain Anesthesia History Hx Anesthesia Reactions No Significant History Evaluation Information Problem Diagnosis s/p CVA Onset 08/02/2019 Prior Level of Function Activity Level (Last 3 Months) 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 Ann-Marie reports he has some left neglect that makes ADLs more
--- NOTE | 2019-09-17 09:12 | PCOTNOTE ---
Patient cancelled OT tx today due to not feeling well.
--- NOTE | 2019-09-17 11:12 | PCPTNOTE ---
Patient called & cancelled scheduled appointment this date due to illness.
--- NOTE | 2019-09-28 10:31 | OTOPEVAL ---
OCCUPATIONAL THERAPY RE-EVALUATION REPORT 09/28/2019 Thank you for referring Cem Osman to [facility]. Continued skilled OT recommended 2x/week for 4 weeks. Please review, sign, date and return this plan of care ANTHONY. I agree with and certify that the following plan of care is medically necessary. Referring Physician Date Referring Provider: Shahid Glover MD *OT Outpatient Re-Evaluation Evaluation Information Problem Diagnosis s/p CVA Onset 08/02/2019 Subjective Information Cem has only been able to Query Text:As Reported By Patient/ participate in 2 outpatient OT Family sessions due to undergoing heart surgery 09/20/19. Cem and his girlfriend, Ann-Marie, report no functional changes regarding his vision. At this time he has a 10 lb lifting restriction. Pain Assessment Timing of Pain Assessment Timing of Pain Assessment Re-assessment Pain Scale Pain Scale Used Numeric (1 - 10) Self Report Pain Assessment Head Reported Pain Level 1 Pain Description Aching Pain Score Pain Score 1: Self Report Upper Extremity Range of Motion General Upper Extremity Range of Motion Reason Not Measured WNL/Left,WNL/Right Gross Upper Extremity Range of Motion UEs are grossly intact with no Comments changes since SOC or surgery. Strength and ROM are WNL bilaterally. 9-Hole Peg Hand Test Hand Right Hand Dominance Right Scoring Time (seconds) 88 Interpretation Severely Below Normal Comments Norm = 18-29 seconds Left Scoring Time (seconds) 82 Interpretation Severely Below Normal Comments Norm = 20-30 seconds Visual Screening Visual Perception Assessment Visual Field Deficit Left Neglect Visual Screening Diplopia No Visual Olivares - Line Bisection Lateralization - Right Visual Olivares - Peripheral Olivares, 30 Temporally - Right Visual Olivares - Peripheral Olivares, 30 Temporally - Left Visual Screening Comments Scanning table top activity (finding letters A-K in the alphabet), pt required 4 cues for accuracy to utilize compensatory techniques for left neglect and visual field deficits. OT Clinical Summary OT Clinical Summary Patient presents today for OT re-evaluation. There have on
--- NOTE | 2019-09-28 11:15 | PTOPEVAL ---
PHYSICAL THERAPY RE-EVALUATION AND UPDATED PLAN OF CARE 09-28-2019 Kwabena has received 3 PT sessions, from September 01 to today, for the diagnosis of decreased gait and balance skills, s/p CVA. He canceled one appointment due to being ill and did not attend last week due to having out pt cardiac surgery. Compared to the initial evaluation, he is about the same with LE strength, TUG, Starkey score; and his 6 minute walking test distance is less today. Today, he reports not feeling well and tired, and the meds hs took his AM make him more tired. PT is to continue 2x/week for 4 weeks, to increase LE strength, balance and mobility skills, with progression of home exercises. Thank you for referring Cem Osman to [facility]. Please review, sign, date and return this updated plan of care ANTHONY. I agree with and certify that the following plan of care is medically necessary. Referring Physician Date Attending Provider: Shahid Glover MD *PT Outpatient Re-Evaluation Document 09/28/19 10:41 BRIAN (Rec: 09/28/19 11:11 BRIAN [id number]) Subjective Information Kwabena and girlfriend Ann-Marie state: Query Text:As Reported By Patient/ had out pt cardiac surgery Family last week, with catheters in both R and L groin, still sore - only precaution, no lifting over head; getting around house without any problems-- too hot to get outside much; no falls, he is not feeling well today, tired and wants to go home and sleep; his anti seizure med he took this AM is making him tired and he is not wanting to do much today; They agreed to contine PT for balance, strength and moblity skills. Pain Assessment Timing of Pain Assessment Timing of Pain Assessment Assessment Self Report Self Report Pain Level 0 Pain Score Pain Score 0: Self Report Lower Extremity Muscle Strength Testing General Lower Extremity Strength Gross Lower Extremity Strength sitting: R and L ankle circles x 15 reps, decreased control with L ankle; Balance Assessment Starkey Balance Assessment Sitting to Standing Independent w/out Hands Unsupported Stance Ability Safely- 2 minutes Sitting Unsupported, Feet on Floor Safely- 2 minutes Standing to Sitting Safely, Minimal Hand Use Transfer Ability Safely, Minimal Hand Use Unsupported Stance- Eyes Closed Safely, 10 seconds Unsupported Stance- Feet Together Supervision to maintain Reaching Forward while Standing Safely, 5 inches 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
--- NOTE | 2019-10-01 14:54 | OTOPEVAL ---
OCCUPATIONAL THERAPY DISCHARGE NOTE 10/01/2019 Cem called and cancelled all of his therapy appointments, stating he is not up to coming for therapy . He attended his re-evaluation earlier this week and does not plan to return for further treatment. He is being discharged with goals not met. Thank you for referring Cem Osman to [facility]. Please review, sign, date and return this D/C Note ANTHONY. I agree with and certify that the following plan of care is medically necessary. Referring Physician Date Referring Provider: Shahid Glover MD
--- NOTE | 2019-10-04 11:28 | PCPTNOTE ---
PHYSICAL THERAPY DISCHARGE 10-04-2019 Attending Provider: Shahid Glover MD Patient:Cem Osman Date of :1955 Mr. Osman called after the recent reevaluation and canceled his PT treatments, stated he is not up to coming for therapy. Discharge PT per pt request. The goals were not achieved. Thank you for referring Cem to [facility]. Please review, sign, date and return this discharge summary ANTHONY. I have been updated about the patient's current status and I agree with discharge from the above service at this time. Referring Physician Date
== END 2019-10-04 14:30 | disposition home or self-care (01) ==
LOC: ANHPT 11:00
PROVIDERS: Visit Provider Psychiatry & Neurology Neurology
DX: I63.9 Cerebral infarction, unspecified (principal); Q21.1 Atrial septal defect; G47.34 Idiopathic sleep related nonobstructive alveolar hypoventilation; G40.909 Epilepsy, unspecified, not intractable, without status epilepticus; Z72.0 Tobacco use
CPT/HCPCS: 97110; 97161; 97166

== ENCOUNTER 2019-10-18 11:00 | Outpatient (CLI) | payer MEDICARE, OTHER, SELFPAY ==
--- NOTE | ~2019-10-18 | CT_ITS ---
EXAMINATION:CT lung screening DATE: 10/18/2019 11:49 INDICATION: Personal history of tobacco dependence. Current smoker with 50 pack year history. TECHNIQUE: Computed tomography (CT) of the chest was performed without intravenous contrast. Automate d exposure control and iterative reconstruction technique were employed. The dose-length product (DLP ) was 76.24 mGy-cm. COMPARISON: Chest CT 08/20/2018 FINDINGS: There is moderate emphysema. There is mild atelectasis bilaterally. A calcified right lung nodule is consistent with old granulomatous disease. There is a 4 mm nodule in right lower lobe witho ut change. There is a 3 mm nodule in right middle lobe without change. There is a 6 mm nodule at ronna r fissure without change. There is a 3 mm nodule in right upper lobe without change. There are two 4 mm nodules in right upper lobe without change. There is a 3 mm nodule in right upper lobe without carley nge. There is a 5 mm nodule in left lower lobe without change. There are 5 mm and 3 mm nodules in lef t lower lobe without change. There is a 6 mm nodule in left upper lobe without change. No pleural eff usion. The heart size is normal. There are coronary artery calcifications. No pericardial effusion. 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 There is thoracic levocurvature and moderate thoracic spondylosis. There is severe cervical spondylosis. IMPRESSION: 1. Lung-RADS category 2: Benign appearance or behavior. Continue annual screening with noncontrast lo w-dose chest CT in 12 months. Reviewed, dictated and finalized at location A. IMPRESSION: 1. Lung-RADS category 2: Benign appearance or behavior. Continue annual screeni ng with noncontrast low-dose chest CT in 12 months.
== END 2019-10-18 11:01 | disposition home or self-care (01) ==
PROVIDERS: Visit Provider Nurse Practitioner Family
DX: Z12.2 Encounter for screening for malignant neoplasm of respiratory organs (principal); Z87.891 Personal history of nicotine dependence
CPT/HCPCS: G0297

== ENCOUNTER 2019-12-12 10:07 | Emergency (ER) | payer MEDICARE, OTHER, SELFPAY ==
--- NOTE | ~2019-12-12 | CT_ITS ---
EXAMINATION: CT brain wo con DATE: 12/12/2019 11:28 INDICATION: Headaches. Altered mental status. Dizziness. TECHNIQUE: Computed tomography (CT) of the head was performed without intravenous contrast. The dose- length product was 605.33 mGy-cm. The mA was adjusted according to patient size. Iterative reconstruc tion technique was employed. COMPARISON: CT dated 09/16/2019 FINDINGS: There are chronic right temporal, parietal and left occipital lobe infarctions with laminar necrosis within the right infarction. There is dolichoectasia of the basilar artery. There is intrac ranial atherosclerosis. No acute intracranial hemorrhage, infarction, mass or mass effect. There are scattered mild periventricular and subcortical white matter changes, most likely related to small ves neisha ischemic disease (microangiopathy). Mild generalized atrophy. Paranasal sinuses and mastoids are pneumatized. No depressed skull fractures. IMPRESSION: 1. No acute intracranial abnormality. No significant interval change. Reviewed, dictated and finalized at location A.
--- NOTE | ~2019-12-12 | XR_ITS ---
EXAMINATION: XR chest 1V portable 12/12/2019 10:29 INDICATION: Confusion and dizziness PROCEDURE: AP portable chest COMPARISON: 08/02/2019 FINDINGS: The lungs are clear. The lungs are hyperinflated which is consistent with, but not diagnost ic of chronic obstructive pulmonary disease. Prominent right nipple shadow. The cardiomediastinal nathalie houette is within normal limits. There are no pleural effusions. There is no pneumothorax suspected . IMPRESSION: 1: NO ACUTE CARDIOPULMONARY DISEASE. Reviewed, dictated and finalized at location A.
[2019-12-12 10:12] VITALS: BP 125/90; PULSE 73; RESP 16; TEMP 36.8; O2SAT 96
--- NOTE | 2019-12-12 10:19 | ECG_ITS ---
Measurements Intervals [place] Rate: 68 P: 6 AK: 141 QRS: -9 QRSD: 104 T: 64 QT: 400 QTc: 427 Interpretive Statements SINUS RHYTHM CANNOT RULE OUT SEPTAL INFARCT, AGE INDETERMINATE BASELINE ARTIFACT- II, V2 ABNORMAL ECG Electronically Signed On 12-12-2019 11:49:08 CDT by Sorin Obrien D.O.
--- NOTE | 2019-12-12 10:37 | ED.NEUROSD ---
HPI - Neuro Symptoms/Deficit General Chief Complaint: Neuro Symptoms/Deficit Stated Complaint: Head Pain, Confusion, Dizzy Time Seen by Provider: 12/12/19 10:14 Source: patient Mode of arrival: ambulatory Limitations: no limitations History of Present Illness HPI Narrative: This is a 64 year old male that presents to the ER for headache x3 days. Reports he ran out of his [place] that he usually takes for his headaches. Reports he felt confused yesterday. Also reports he is lightheaded when he stands up, which is been ongoing for a long time. Reports history of previous strokes. Denies fever, vision changes, vomiting, numbness, or weakness. Related Data Home Medications Medication Instructions Recorded Confirmed clopidogrel 75 mg tablet 75 mg PO DAILY 11/05/19 Allergies Allergy/AdvReac Type Severity Reaction Status Date / Time Penicillins Allergy Unknown unk Verified 12/12/19 10:21 nicotine [From Nicoderm CQ] AdvReac Hallucinati Verified 12/12/19 10:21 ng Review of Systems Review of Systems: Narrative: CONSTITUTIONAL: Denies fever EYES: Denies visual changes CARDIOVASCULAR: Denies chest pain, or edema. RESPIRATORY: Denies dyspnea. GASTROINTESTINAL: Denies abdominal pain, nausea, vomiting GENITOURINARY: Denies dysuria NEUROLOGIC: Reports headache. Denies numbness, or weakness. 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 Chronic obstructive pulmonary disease COPD exacerbation Degenerative disc disease Depression with anxiety Essential hypertension Gastroesophageal reflux disease Headache Hyperlipidemia Seizure disorder (~07/2016) Tobacco abuse Surgical History Surgical History History of inguinal hernia repair History of lumbar surgery (~03/2016) History of tonsillectomy History of vocal cord polypectomy Family History Family History Mother Hypertension Acute myocardial infarction Sibling Acute myocardial infarction Family history of lung cancer Father Acute myocardial infarction Social History Social History Social History: The patient lives in [place] with his significant other. He is and has 5 children. 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 He smokes about 1/3 of a pack of cigarettes per day and has for almost 50 years. He denies alcohol and illicit substance use. He designates his girlfriend, Ann-Marie Hoang, as his surrogate decision maker and he wishes to be a do not resuscitate. Smoking status: Current every day smoker Tobacco type: cigarettes Second hand tobacco smoke exposure: Yes Alcohol intake: never Substance use: never Gender identity (if verbalized by the patient): Male Spiritual care concerns: No Exam Narrative: Exam Narrative: GENERAL: Well-appearing, thin, and in no acute distress. HEAD: Normocephalic, atraumatic. EYES: PERRLA and EOMI. ENT: Nares clear, no rhinorrhea or epistaxis. Mucous membranes moist. Oropharynx without tonsillar hypertrophy exudate or other lesions. Bilateral TMs pearly moss non-bulging NECK: Supple. No adenopathy or masses. CHEST: Clear to auscultation. No respiratory distress. No wheezes rales or rhonchi HEART: Regular rate and rhythm. No murmur heard. Normal peripheral pulses. ABDOMEN: Soft, nontender, nondistended, normal active bowel sounds. EXTREMITIES: Normal range of motion. No edema. Strength equal in bilateral upper and lower extremities (5/5) SKIN: Warm, dry, no rash. NEURO: No focal deficits. Alert and oriented x3. Cranial nerves II
[2019-12-12 10:38] VITALS: BP 122/85; PULSE 65; RESP 118; O2SAT 97
[2019-12-12 10:39] LABS: Basophils Percent Auto 0.7 % (0.2-1.2); Eosinophils Absolute Auto 0.1 K/mm3 (0-0.3); Eosinophils Percent Auto 1.4 % (0-4.4); Hematocrit 41.8 % (42.0-52.0); Hemoglobin 13.5 g/dL (14.0-18.0); Lymphocytes Absolute Auto 1.15 K/mm3 (0.9-3.2); Lymphocytes Percent Auto 26.2 % (18.3-44.2); Mean Corpuscular HGB Conc 32.3 g/dl (32-36); Mean Corpuscular Hemoglobin 30.1 pg (26-34); Mean Corpuscular Volume 93.3 fl (80-100); Mean Platelet Volume 9.6 fl (7.4-10.4); Monocytes Absolute Auto 0.4 K/mm3 (0.1-0.6); Monocytes Percent Auto 9.1 % (2.6-8.5); Neutrophils Absolute Auto 2.8 K/mm3 (1.3-6.7); Neutrophils Percent Auto 62.6 % (45.5-73.1); Platelet Count Result 292 k/mm3 (150-375); Red Blood Count 4.48 M/mm3 (4.6-6.20); Red Cell Distribution Width 12.4 % (11.5-14.5); White Blood Count 4.4 K/mm3 (4.5-10.0)
[2019-12-12 10:41] VITALS: BP 117/94; PULSE 65
[2019-12-12 10:42] VITALS: BP 102/88; BP 119/88; PULSE 70; PULSE 90
[2019-12-12 10:47] LABS: Glucose Point of Care 100 (65-105)
[2019-12-12 10:54] LABS: Partial Thromboplastin Time 27.4 SECONDS (22.3-36.8)
[2019-12-12 10:55] LABS: Alanine Aminotransferase 15 U/L (4-50); Albumin Level 4.5 g/dL (3.5-5.1); Alkaline Phosphatase 80 U/L (38-126); Anion Gap 12 mmol/L (8-16); Aspartate Amino Transferase 26 U/L (17-59); Bilirubin,Total 0.3 mg/dL (0.2-1.3); Blood Urea Nitrogen 15 mg/dL (9-20); Calcium 9.3 mg/dL (8.4-10.2); Carbon Dioxide 28 mmol/L (22-30); Chloride 102 mmol/L (98-107); Estimated CRCL calculation 112 ml/min; Estimated Glomerular Filt Rate > 60; Glucose 89 mg/dL (75-110); Potassium 3.9 mmol/L (3.4-5.0); Sodium 142 mmol/L (137-145)
[2019-12-12] MEDS: METOCLOPRAMIDE HCL INJ 10 MG/2 ML VIAL IV PUSH (10:57)
[2019-12-12] MEDS: SODIUM CHLORIDE 0.9% IV 1,000 ML 999 ML IV CONT (10:57)
[2019-12-12] MEDS: diphenhydrAMINE HCl INJ 50 MG/ML VIAL 25 MG IV PUSH (10:57)
[2019-12-12 11:04] LABS: Troponin I < 0.012 ng/mL (0.000-0.034)
[2019-12-12 11:09] LABS: Lactic Acid Reflex 1.2 mmol/L (0.7-2.1)
[2019-12-12 11:15] LABS: CRP 0.5 mg/dL (<1.0)
--- NOTE | 2019-12-12 12:19 | PC.NURSE ---
pt attempted to urinate, unsuccessful.
[2019-12-12 13:07] LABS: Add Urine Microscopic? YES; Appearance Urine Clear (Clear); Bacteria Urine Trace /hpf; Bilirubin Urine Negative (Negative); Blood Urine Negative (Negative); Color Urine Yellow (Yellow); Glucose Urine UA Negative (Negative); Ketones Urine Negative (Negative); Leukocyte Esterase Ur Trace LEU/UL (Negative); Mucus Urine Rare /lpf; Nitrate Urine Negative (Negative); Protein Urine Negative (Negative); Specific Grav Ur 1.024 (1.001-1.035); Squamous Epithelial Cell Urine Occasional /hpf (Few); WBC Urine 0-3 /hpf
[2019-12-12] MEDS: KETOROLAC 15 MG/ML VIAL (*BKC) IV PUSH (13:11)
[2019-12-12 14:11] VITALS: BP 127/74; PULSE 65; RESP 18; TEMP 36.7; O2SAT 99
== END 2019-12-12 14:13 | disposition home or self-care (01) ==
PROVIDERS: Physician Assistant; Emergency Provider Family Medicine; PCP Internal Medicine
DX: R51.9 Headache, unspecified (principal); N40.0 Benign prostatic hyperplasia without lower urinary tract symptoms; J44.9 Chronic obstructive pulmonary disease, unspecified; I10 Essential (primary) hypertension; K21.9 Gastro-esophageal reflux disease without esophagitis; E78.5 Hyperlipidemia, unspecified; I69.939 Monoplegia of upper limb following unspecified cerebrovascular disease affecting unspecified side; R94.31 Abnormal electrocardiogram [ECG] [EKG]; F17.210 Nicotine dependence, cigarettes, uncomplicated
CPT/HCPCS: 36415; 70450; 71045; 80053; 81001; 82948; 83605; 84484; 85025; 85610; 85730; 86140; 93005; 96365; 96375; 99284; J0131; J1200; J1885; J2765; J7030

== ENCOUNTER 2020-08-25 09:33 | Outpatient (CLI) | payer MEDICARE, OTHER, SELFPAY ==
--- NOTE | ~2020-08-25 | CT_ITS ---
EXAMINATION: CT lung screening DATE: 08/25/2020 09:52 INDICATION: Personal history of tobacco dependence, current smoker with 50 pack year history TECHNIQUE: Computed tomography (CT) of the chest was performed without intravenous contrast. The dose -length product (DLP) was 68.64 mGy-cm. Automated exposure control and iterative reconstruction techn [place] were employed. COMPARISON: 10/18/2019 FINDINGS: There is moderate emphysema. There are multiple stable bilateral pulmonary nodules. The lar gest on the right is a 5 mm pleural-based nodule of the right upper lobe on image 53. The largest on the left is a 6 mm nodule of the left upper lobe on image 56. No new pulmonary nodules are identified . The lungs are free of acute opacities. There is mild atelectasis of the lung bases. There is no ple ural effusion or pneumothorax. There is chronic and unchanged irregular soft tissue density of the an terior mediastinum, consistent with thymic hyperplasia. No pathologically enlarged thoracic lymph nod es are identified. The heart size is normal. Calcified coronary artery atherosclerosis is noted. Ther e is moderate thoracic spondylosis and severe lower cervical spondylosis. IMPRESSION: 1. Lung-RADS category 2: Benign appearance or behavior. Continue annual screening with noncontrast lo w-dose chest CT in 12 months. Reviewed, dictated and finalized at location A. IMPRESSION: 1. Lung-RADS category 2: Benign appearance or behavior. Continue annual screeni ng with noncontrast low-dose chest CT in 12 months.
== END 2020-08-25 09:34 | disposition home or self-care (01) ==
PROVIDERS: PCP Internal Medicine; Visit Provider Nurse Practitioner Family
DX: Z12.2 Encounter for screening for malignant neoplasm of respiratory organs (principal); Z87.891 Personal history of nicotine dependence
CPT/HCPCS: 71271

== ENCOUNTER 2020-10-18 16:57 | Observation (INO) | payer MEDICARE, OTHER, SELFPAY ==
--- NOTE | ~2020-10-18 | CT_ITS ---
EXAMINATION: CTA brain carotid DATE: 10/19/2020 07:13 CDT INDICATION: Right arm weakness TECHNIQUE: Computed tomographic angiography (CTA) of the head was performed without and with 100 mL O mnipaque-350 intravenous contrast. CTA of the neck was performed with intravenous contrast. The dose- length product was 1084.53 mGy-cm. Maximum intensity projection and volume rendered 3D-reconstruction s were created by the technologist on a separate workstation. Automated exposure control and iterativ e reconstruction technique were employed. COMPARISON: CT dated 10/18/2020. FINDINGS: HEAD CTA: There are mildly ectatic intracranial vessels without evidence for significant stenosis or occlusion. No aneurysm identified. There is mild atherosclerosis of the vertebral arteries. Chronic r ight parietal infarction with encephalomalacia. NECK CTA: There is emphysema of the lung apices. Thyroid gland is grossly unremarkable. No cervical l ymphadenopathy. No abnormality of the mucosal parapharyngeal spaces. There is 0% stenosis of the proximal right internal carotid artery relative to normal distal artery l umen diameter (NASCET criteria). There is less than 20% stenosis of the proximal left internal caroti d artery relative to normal distal artery lumen diameter. IMPRESSION: 1. Mild ectasia of the intracranial vessels without significant stenosis, occlusion or aneurysm. 2: No significant stenosis, dissection or occlusion of the carotid arteries. Reviewed, dictated and finalized at location A. IMPRESSION: 1. Mild ectasia of the intracranial vessels without significant stenosis, occlu iggy or aneurysm. 2: No significant stenosis, dissection or occlusion of the carotid arteries.
--- NOTE | ~2020-10-18 | XR_ITS ---
XR chest 1V DATE: 10/18/2020 17:28 INDICATION: Right sided weakness. Dizziness for 2 days. Headache. Hypertension. Smoker. History of [place] PD. TECHNIQUE: AP chest COMPARISON: 08/25/2020 CT lung screening examination 12/12/2019 portable AP chest FINDINGS: Bilateral hyperinflation, consistent with history of COPD. No pulmonary infiltrate or consolidation, pleural effusion or pulmonary vascular congestion or pneumo thorax. Normal heart size. Atrial septal defect closure device. decorator mannequin device overlies the left chest. No hilar or mediastinal enlargement. Diffuse osteopenia. IMPRESSION: Bilateral hyperinflation; no active cardiac pulmonary disease Reviewed, dictated and finalized at location A.
--- NOTE | ~2020-10-18 | CT_ITS ---
EXAMINATION: CT brain wo con DATE: 10/18/2020 17:24 INDICATION: Right sided paresis. Headache for 2 days. TECHNIQUE: Computed tomography (CT) of the head was performed without intravenous contrast. The mA wa s adjusted according to patient size. Iterative reconstruction technique was employed. Exam dose: 60 5.33 mGy-cm total exam DLP. COMPARISON: 12/12/2019 CT brain FINDINGS: Bilateral vertebral artery and basilar artery calcifications, vertebrobasilar dolichoectasi a. Bilateral carotid siphon internal carotid artery calcifications. There is chronic infarct in the right temporal occipital parietal area within the right middle cerebr al artery territory. There is an old infarct of the left occipital. No intracranial mass lesion or hemorrhage or recent cerebrovascular accident is evident. No midline s hift or mass effect effect. No subdural or epidural hematoma is detected. No fracture or bone destruction of the cranial vault. Included paranasal sinuses and mastoid air cells are unremarkable. IMPRESSION: Chronic infarcts of right temporal parietal occipital area and left occipital area No acute intracranial finding Cerebral atherosclerosis Reviewed, dictated and finalized at Location A. Reviewed, dictated and finalized at location A. IMPRESSION: Chronic infarcts of right temporal parietal occipital area and lef t occipital area No acute intracranial finding Cerebral atherosclerosis
--- NOTE | ~2020-10-18 | MR_ITS ---
EXAMINATION: MR brain/brain stem wo con DATE: 10/19/2020 10:00 INDICATION: Right arm weakness. TECHNIQUE: Magnetic resonance imaging (MRI) of the brain and brainstem was performed without intraven ous contrast. Sequences included sagittal and axial T1-weighted FSE, axial diffusion-weighted FS EPI, axial T2*-weighted GRE, axial T2-weighted FLAIR Propeller, and axial T2-weighted Propeller. Percent Apparent diffusion coefficient (ADC) maps were created. COMPARISON: Brain MRI 08/02/2019, head CT 10/18/2020 FINDINGS: There is an old infarct involving the right temporal parietal occipital region. There is an old infarct in left occipital lobe. There is no intracranial hemorrhage, acute infarction, or abnorm al intracranial mass lesion. There is old infarcts in the cerebellum bilaterally. There are scattered areas of nonspecific increased T2-weighted signal intensity in the cerebral white matter. The ventri cles are normal in size. There is mild mucosal thickening in the paranasal sinuses. The orbits are no rmal. The mastoid air cells are normal. IMPRESSION: 1. Old infarcts involving the right temporal parietal occipital region, left occipital lobe, and cere bellum. 2. Mild nonspecific cerebral white matter disease, which likely represents chronic small vessel ische corinne disease. Reviewed, dictated and finalized at location B. IMPRESSION: 1. Old infarcts involving the right temporal parietal occipital region, left oc cipital lobe, and cerebellum. 2. Mild nonspecific cerebral white matter disease, which likely represents golf course manager bell small vessel ischemic disease.
[2020-10-18 16:59] VITALS: BP 127/92; PULSE 100; RESP 20; TEMP 37.1; O2SAT 99
--- NOTE | 2020-10-18 17:04 | ECG_ITS ---
Measurements Intervals [place] Rate: P: MO: QRS: QRSD: T: QT: QTc: Interpretive Statements SINUS TACHYCARDIA DELAYED PRECORDIAL R/S TRANSITION BASELINE ARTIFACT- III, AVF ABNORMAL ECG Electronically Signed On 10-21-2020 16:09:47 CDT by Sorin Obrien D.O.
[2020-10-18 17:21] LABS: Basophils Percent Auto 0.2 % (0.2-1.2); Hematocrit 41.4 % (42.0-52.0); Hemoglobin 13.4 g/dL (14.0-18.0); Immature Granulocyte Absolute 0.02 K/mm3 (0.00-0.031); Immature Granulocyte Percent A 0.2 % (0-0.5); Lymphocytes Percent Auto 14.9 % (18.3-44.2); Mean Corpuscular HGB Conc 32.4 g/dl (32-36); Mean Corpuscular Hemoglobin 30.2 pg (26-34); Mean Corpuscular Volume 93.5 fl (80-100); Mean Platelet Volume 9.4 fl (7.4-10.4); Monocytes Absolute Auto 0.3 K/mm3 (0.1-0.6); Monocytes Percent Auto 4.1 % (2.6-8.5); Neutrophils Absolute Auto 6.5 K/mm3 (1.3-6.7); Neutrophils Percent Auto 80.6 % (45.5-73.1); Platelet Count Result 282 k/mm3 (150-375); Red Blood Count 4.43 M/mm3 (4.6-6.20); Red Cell Distribution Width 11.7 % (11.5-14.5); White Blood Count 8.1 K/mm3 (4.5-10.0)
[2020-10-18 17:30] LABS: INR 0.9; Prothrombin Time 11.6 Seconds (11.1-14.7)
[2020-10-18 17:31] LABS: Partial Thromboplastin Time 24.1 SECONDS (22.3-36.8)
[2020-10-18 17:32] LABS: Anion Gap 8 mmol/L (8-16); Blood Urea Nitrogen 14 mg/dL (9-20); Calcium 9.6 mg/dL (8.4-10.2); Carbon Dioxide 23 mmol/L (22-30); Chloride 103 mmol/L (98-107); Estimated CRCL calculation 87 ml/min; Estimated Glomerular Filt Rate > 60; Glucose 125 mg/dL (65-110); Potassium 4.3 mmol/L (3.4-5.0); Sodium 134 mmol/L (137-145)
[2020-10-18 17:43] LABS: Troponin I < 0.012 ng/mL (0.000-0.034)
[2020-10-18 19:47] VITALS: BP 105/69; PULSE 73; RESP 19; O2SAT 97
--- NOTE | 2020-10-18 19:49 | ED.GENADULT ---
HPI - General Adult General Chief complaint: Headache Stated complaint: severe h/a, near syncope Time Seen by Provider: 10/18/20 19:38 Source: patient History of Present Illness HPI narrative: Patient is a 65 y/o male complaining of frontal headache starting 2 days ago. He describes his headache as aching and rates it as 9/10. He took Tylenol which did not help. He has some right arm weakness and difficulty using right arm for last 2 days. Related Data Home Medications Medication Instructions Recorded Confirmed clopidogrel 75 mg tablet 75 mg PO DAILY 11/05/19 08/01/20 Allergies Allergy/AdvReac Type Severity Reaction Status Date / Time Penicillins Allergy Unknown unk Verified 10/18/20 19:48 nicotine [From Nicoderm ] AdvReac Hallucinati Verified 10/18/20 19:48 ng Review of Systems Constitutional: Constitutional: Denies chills, Denies fever(s), Reports headache(s) and Denies weakness Eyes: Eyes: Denies blurry vision ENT: Reports headache(s) and Denies neck pain Cardiovascular: Cardiovascular: Denies chest pain and Denies dyspnea Respiratory: Respiratory: Denies cough and Denies dyspnea Gastrointestinal: Gastrointestinal: Denies abdominal pain, Denies diarrhea, Denies nausea and Denies vomiting Genitourinary: Genitourinary: Denies hematuria and Denies dysuria Musculoskeletal: Musculoskeletal: Denies back pain and Denies neck pain Neurologic: Reports headache(s) and Reports focal weakness (rigth arm weakness) [facility] Past Medical History Medical History Benign prostatic hyperplasia Cerebrovascular accident (~03/2017) 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 Chronic obstructive pulmonary disease COPD exacerbation Degenerative disc disease Depression with anxiety Essential hypertension Gastroesophageal reflux disease Headache Hyperlipidemia Seizure disorder (~07/2016) Tobacco abuse Surgical History Surgical History History of inguinal hernia repair History of lumbar surgery (~03/2016) History of tonsillectomy History of vocal cord polypectomy Family History Family History Mother Hypertension Acute myocardial infarction Sibling Acute myocardial infarction Family history of lung cancer Father Acute myocardial infarction Social History Social History Social History: The patient lives in [place] with his significant other. He is and has 5 children. 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 He smokes about 1/3 of a pack of cigarettes per day and has for almost 50 years. He denies alcohol and illicit substance use. He designates his girlfriend, Ann-Marie Hoang, as his surrogate decision maker and he wishes to be a do not resuscitate. Smoking status: Current every day smoker Tobacco type: cigarettes Second hand tobacco smoke exposure: Yes Alcohol intake: never Substance use: never Gender identity (if verbalized by the patient): Male Spiritual care concerns: No Exam Const: General: no acute distress and well developed Orientation/consciousness: oriented to person, oriented to place, oriented to time and patient oriented x3 HENMT: Head: normocephalic Ears: external ears normal General nose exam: Normal external nose present Eyes: General: appearance normal, both eyes and all related structures Conjunctivae: conjunctivae normal Neck: Neck: normal visual inspection and full ROM Chest: Chest palpation & inspection: normal inspection of the chest and no tenderness Resp: Effort & Inspection: normal respiratory effort Auscultation: clear to auscultation bilaterally Cardio: Rate: regular rate Rhythm: regular rhythm GI: GI Palp: No abdominal tendern
[2020-10-18 20:00] VITALS: BP 117/77; PULSE 67; RESP 16; TEMP 36.4; O2SAT 97; BMI 18.0
[2020-10-18] MEDS: ASPIRIN 81 MG CHEWABLE TABLET 324 MG PO (20:05)
--- NOTE | 2020-10-18 20:43 | PM.IMHP ---
H&P: HPI History of Present Illness Date/Time: 10/18/20 20:43 Chief Complaint: Right upper extremity weakness Narrative: This is a 65-year-old male with past medical history significant for tobacco dependence, COPD/emphysema, on 2 L of supplemental oxygen by nasal cannula at nighttime, chronic stroke, seizure disorder, restless leg syndrome, benign prostatic hyperplasia, depression, chronic headache after stroke. Patient presented to the emergency room due to right upper extremity weakness according to the patient he usually has left-sided weakness as a result of acute stroke 2 years ago. Patient states that 2 days ago he had a sudden onset of right upper extremity weakness that now has improved that is at bedside states that there was no changes in his speech they decided to come to the emergency room after he did not go away he denies any fevers, chills, rigors, cough ,sputum production, nausea, vomiting, abdominal pain, no vision changes no dizziness no lightheadedness no chest pain no palpitations no PND no orthopnea. Preliminary workup has been essentially nonrevealing last time patient was noticed to be his usual was 2 days ago. Decision has been made to place the patient on observation for further workup assessment and treatment. Review of Systems Review of Systems: Right upper extremity weakness Constitutional: Constitutional: Denies chills, Denies fatigue, Denies fever(s), Denies frequent falls, Denies lethargy and Denies malaise Eyes: Eyes: Denies change in vision ENT: Denies dysphagia, Denies vertigo, Denies dizziness, Denies nasal discharge, Denies nasal obstruction, Denies neck pain and Denies odynophagia Cardiovascular: Cardiovascular: Denies chest pain, Denies irregular heart rhythm, Denies claudication, Denies radiating jaw, neck or arm pain, Denies palpitations, Denies dyspnea and Denies dyspnea on exertion Respiratory: Respiratory: Denies change in phlegm color, Denies cough, Denies excessive phlegm production, Denies dyspnea and Denies wheezing Gastrointestinal: Gastrointestinal: Denies abdominal pain, Denies diarrhea, Denies nausea and Denies vomiting Genitourinary: Genitourinary: Reports no additional male genitourinary complaints Musculoskeletal: Musculoskeletal: Reports no additional musculoskeletal complaints Integumentary/Breasts: Skin/Breast: Reports system reviewed and no additional complaints, except as docu Neurologic: Reports focal weakness (Subjective right upper extremity) and Denies Sensory deficit (Neuro) Psychiatric: Psychiatric: Reports no additional psychiatric complaints Endocrine: Endocrine: Reports no additional endocrine complaints Hematologic/Lymphatic: Hematologic/Lymphatic: Reports no additional hematologic/lymphatic complaints Allergic/Immunologic: Allergic/Immunologic: Reports no additional allergic/immunologic complaints [facility] Past Medical History Medical History (Updated 10/18/20 @ 22:00 by Whitney Reyes MD) Benign prostatic hyperplasia Cerebrovascular accident (~03/2017) 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 Chronic obstructive pulmonary disease COPD exacerbation Degenerative disc disease Depression with anxiety Essential hypertension Gastroesophageal reflux disease Headache Hyperlipidemia Seizure disorder (~07/2016) Tobacco abuse Surgical History Surgical History History of inguinal hernia repair History of lumbar surgery (~03/2016) History of tonsillectomy History of vocal cord polypectomy Family History Family History Mother Hypertension Acute myocardial infarction Sibling Acute myocardial infarction Family history of lung cancer Father Acute myocardial infarction Social History Social History Social History: The p
[2020-10-18 21:25] VITALS: BP 101/84; PULSE 58; RESP 18; O2SAT 98
[2020-10-18 21:55] VITALS: BP 123/87; PULSE 59; RESP 16; O2SAT 97
--- NOTE | 2020-10-18 22:06 | ADMGEN ---
This patient, Cem Osman, was admitted to Medical Room 248-. Patient/family oriented to hospital policies and general routines including ID bracelet, bed and alarms, visiting hours, pain management, procedures, bathroom and other care routines, personal items, smoking policy, room service/diet, and visiting hours. Information on how to activate the Rapid Response Team has been discussed. Patient/Family are encouraged to report perceived risks to care and to ask questions if they do not understand what they are told or what they should do.
[2020-10-18 22:27] VITALS: PULSE 59; RESP 16; O2SAT 97
[2020-10-18] MEDS: GABAPENTIN 300 MG CAPSULE 600 MG PO (23:11)
[2020-10-18] MEDS: levETIRAcetam 250 MG TABLET 750 MG PO (23:11)
[2020-10-18] MEDS: HYDROcodone/acetaminophen (*CRX) 10-325 MG TABLET 1 TAB PO (23:11)
[2020-10-19] VITALS (8 sets, daily range): BP systolic 98–105; BP diastolic 61–73; PULSE 55–85; RESP 16; TEMP 36.3–36.4; O2SAT 92–97; BMI 18.0
[2020-10-19] MEDS: ACETAMINOPHEN 325 MG TABLET 650 MG PO (01:42)
[2020-10-19] MEDS: HYDROcodone/acetaminophen (*CRX) 10-325 MG TABLET 1 TAB PO ×2 (05:58→12:07)
--- NOTE | 2020-10-19 06:00 | ECHO_ITS ---
Patient Info Name: Cem Osman Age: 65 years : 1955 Gender: Male Ht: 74 in Wt: 140 lbs BSA: 1.80 m2 HR: 63 bpm BP: 104 / 67 mmHg Heart Rhythm: Indeterminant Technical Quality: Fair Exam Date: 10/19/2020 12:31 PM Exam Location: [facility] Pulmonary Exam Room: 248 Patient Status: Inpatient Admit Date: 10/18/2020 Staff Ordering Physician: Shannon Paulino MD House Parent: Lucy Holt RDCS Attending Provider: Whitney Reyes MD Referring Physician: Jefferson ABRAHAM; Exam Type: CA echo doppler color flow Study Info Indications - RIGHT ARM WEAKNESS Complete two-dimensional, color flow and Doppler transthoracic echocardiogram is performed. Summary 1. Complete two-dimensional, color flow and Doppler transthoracic echocardiogram is performed. 2. Left ventricular chamber size, wall thickness, systolic and diastolic function are normal with no regional wall motion abnormalities with an estimated ejection fraction of 65-70%. 3. Mild pulmonary hypertension, estimated pulmonary arterial systolic pressure is 39 mmHg. 4. RV not well visualized but possible right ventricular enlargement. 5. Possible focal atrial septal aneurysm versus an anatomic variant. Consider bubble study clinically indicated. 6. No significant valve disease. Left Ventricle Left ventricular chamber dimension is normal. Left ventricular systolic function is normal, estimated at 65-70%. There is no increased left ventricular wall thickness. Left ventricular septal wall motion is normal. The left ventricular diastolic function is normal. Left ventricular chamber size, wall thickness, systolic and diastolic function are normal with no regional wall motion abnormalities with an estimated ejection fraction of 65-70%. Right Ventricle Right ventricular chamber dimension is mildly enlarged. Right ventricular systolic function is normal. Left Atria Left atrial chamber dimension is normal. Right Atria Right atrial chamber dimension is normal. Aortic Valve The aortic valve is trileaflet. There is no aortic valve sclerosis. There is no aortic valve stenosis. There is no aortic valve regurgitation. Pulmonic Valve The pulmonic valve is normal. There is no pulmonic valve stenosis. There is no pulmonic regurgitation. Mitral Valve The mitral valve has normal leaflets. There is no mitral valve stenosis. There is no mitral valve regurgitation. Tricuspid Valve The tricuspid valve leaflets are normal. There is no significant tricuspid valve stenosis. There is trace tricuspid valve regurgitation. Mild pulmonary hypertension, estimated pulmonary arterial systolic pressure is 39 mmHg. Pericardium/Pleural The pericardium appears normal. There is no pericardial effusion. Inferior Vena Cava Normal inferior vena cava with >50% collapse upon inspiration consistent with Empty right atrial pressure, 10 mmHg. Aorta The aortic root size at the sinus of Valsalva is normal. The prox ascending aorta size is normal. Left Ventricular Outflow Tract Name Value Normal LVOT 2D LVOT Diameter 2.1 cm LVOT Doppler LVOT Peak Gradie
[2020-10-19] MEDS: ARIPiprazole 5 MG TABLET PO (08:03)
[2020-10-19] MEDS: CLOPIDOGREL BISULFATE 75 MG TABLET PO (08:03)
[2020-10-19] MEDS: rOPINIRole HCL 0.5 MG TABLET PO (08:03)
[2020-10-19] MEDS: SERTRALINE HCL 50 MG TABLET 200 MG PO (08:03)
[2020-10-19] MEDS: TAMSULOSIN HCL 0.4 MG CAPSULE PO (08:03)
[2020-10-19] MEDS: GABAPENTIN 300 MG CAPSULE 600 MG PO (08:04)
[2020-10-19] MEDS: levETIRAcetam 500 MG TABLET PO (08:04)
[2020-10-19] MEDS: FLUTICASONE/SALMETEROL 115-21 MCG INHALER 1 PUFF 2 PUFF INHALATION (08:18)
[2020-10-19] MEDS: ALBUTEROL SULFATE (*SP) AEROSOL 1 PUFF INHALATION (08:18)
[2020-10-19] MEDS: predniSONE 10 MG TABLET 30 MG PO (09:04)
--- NOTE | 2020-10-19 16:18 | PM.DS ---
DS: Admitting Diagnosis Admitting Diagnosis Chief Complaint: Right upper extremity weakness DS: Discharge Diagnosis Discharge Diagnosis (1) Right sided weakness: Code(s): R53.1 - Weakness Status: Acute Assessment and Plan: Patient will be placed in observation Will obtain echocardiogram, CTA, MRI of the brain Supportive care Patient had last seen him at his usual over 2 days ago (2) Headache: Qualifiers: Headache chronicity pattern: unspecified pattern Headache type: unspecified Intractability: not intractable Qualified Code(s): R51.9 - Headache, unspecified Code(s): R51.9 - Headache, unspecified Status: Acute Assessment and Plan: Patient with chronic headache for the last 2 years after his acute stroke Continue home meds Tylenol as knee (3) Patent foramen ovale: Code(s): Q21.1 - Atrial septal defect Status: Acute Assessment and Plan: status post repair (4) Essential hypertension: Code(s): I10 - Essential (primary) hypertension Status: Chronic Assessment and Plan: Continue to monitor Continue home med (5) Tobacco abuse: Code(s): Z72.0 - Tobacco use Status: Acute Assessment and Plan: Nicotine patch as needed (6) Chronic obstructive pulmonary disease: Qualifiers: COPD type: unspecified COPD Qualified Code(s): J44.9 - Chronic obstructive pulmonary disease, unspecified Code(s): J44.9 - Chronic obstructive pulmonary disease, unspecified Status: Chronic Assessment and Plan: Resume home meds Not actively wheezing (7) Nocturnal hypoxemia: Code(s): G47.34 - Idiopathic sleep related nonobstructive alveolar hypoventilation Status: Acute Assessment and Plan: Patient uses oxygen by nasal cannula 2 L at bedtime Resume oxygen at nighttime (8) Seizure disorder: Onset Date: ~07/2016 Code(s): G40.909 - Epilepsy, unspecified, not intractable, without status epilepticus Status: Chronic Assessment and Plan: Continue home meds (9) Cerebrovascular accident: Onset Date: ~03/2017 Code(s): I63.9 - Cerebral infarction, unspecified Status: Acute Assessment and Plan: Patient is on Plavix Not on a statin (10) Benign prostatic hyperplasia: Code(s): N40.0 - Benign prostatic hyperplasia without lower urinary tract symptoms Status: Chronic Assessment and Plan: Continue tamsulosin DS: Summary Hospital Course Reason for hospitalization: Chief Complaint: Right upper extremity weakness Narrative: This is a 65-year-old male with past medical history significant for tobacco dependence, COPD/emphysema, on 2 L of supplemental oxygen by nasal cannula at nighttime, chronic stroke, seizure disorder, restless leg syndrome, benign prostatic hyperplasia, depression, chronic headache after stroke. Patient presented to the emergency room due to right upper extremity weakness according to the patient he usually has left-sided weakness as a result of acute stroke 2 years ago. Patient states that 2 days ago he had a sudden onset of right upper extremity weakness that now has improved that is at bedside states that there was no changes in his speech they decided to come to the emergency room after he did not go away he denies any fevers, chills, rigors, cough ,sputum production, nausea, vomiting, abdominal pain, no vision changes no dizziness no lightheadedness no chest pain no palpitations no PND no orthopnea. Preliminary workup has been essentially nonrevealing last time patient was noticed to be his usual was 2 days ago. Decision has been made to place the patient on observation for further workup assessment and treatment. Hospital Course: patient discharged on 10/19/2020 patient presented with right upper extremity weakness CTA of the head showed no stenosis similarly MRI of the head essentially normal, patient is clinically
== END 2020-10-19 17:10 | disposition home or self-care (01) ==
LOC: ANHED 20:54 → ANH2MED 22:46
PROVIDERS: Admitting Provider Internal Medicine; Emergency Provider Emergency Medicine; PCP Internal Medicine; Visit Provider Family Medicine
DX: G81.91 Hemiplegia, unspecified affecting right dominant side (principal); I69.354 Hemiplegia and hemiparesis following cerebral infarction affecting left non-dominant side; J43.9 Emphysema, unspecified; G40.909 Epilepsy, unspecified, not intractable, without status epilepticus; G47.34 Idiopathic sleep related nonobstructive alveolar hypoventilation; G25.81 Restless legs syndrome; N40.0 Benign prostatic hyperplasia without lower urinary tract symptoms; E78.5 Hyperlipidemia, unspecified; F17.210 Nicotine dependence, cigarettes, uncomplicated; R51.9 Headache, unspecified; Q21.1 Atrial septal defect; I10 Essential (primary) hypertension; Z79.02 Long term (current) use of antithrombotics/antiplatelets; Z99.81 Dependence on supplemental oxygen; Z79.899 Other long term (current) drug therapy
CPT/HCPCS: 36415; 70450; 70496; 70498; 70551; 71045; 80048; 84484; 85025; 85610; 85730; 93005; 93306; 94640; 99285; A9270; G0378; J7512; Q9967

== ENCOUNTER 2020-11-08 09:13 | Emergency (ER) | payer MEDICARE, OTHER, SELFPAY ==
--- NOTE | ~2020-11-08 | XR_ITS ---
EXAMINATION: XR chest 2V EXAM DATE: 11/08/2020 10:05 INDICATION: Wheezing, COPD, shortness of breath. TECHNIQUE: Frontal and lateral projections of the chest obtained and reviewed. Comparison is made to prior examination from 10/18/2020. FINDINGS: There is a cardiac monitoring device. Atrial septal closure device. The lungs are hyperinfl ated which can be seen with chronic obstructive pulmonary disease (a clinical diagnosis of functional impairment), but is not diagnostic of it. There is ill-defined left lower lobe airspace disease new compared to previous examination. Appearanc e is suspicious for developing pneumonia, please clinically correlate. There is no pneumothorax suspe cted. There are no pleural effusions. There are no osseous abnormalities identified. Cardiomediastina l silhouette is normal. IMPRESSION: Developing ill-defined left lower lobe airspace disease could be pneumonia. Hyperinflati on. Reviewed, dictated and finalized at location A. IMPRESSION: Developing ill-defined left lower lobe airspace disease could be p neumonia. Hyperinflation.
[2020-11-08 09:20] VITALS: BP 102/83; PULSE 98; RESP 16; TEMP 37.3; O2SAT 95
--- NOTE | 2020-11-08 10:25 | ED.URI ---
HPI - URI/Sore Throat General Chief Complaint: Upper Respiratory Infection Stated Complaint: major wheezing Source: patient Mode of arrival: ambulatory Limitations: no limitations History of Present Illness HPI Narrative: Patient is a 65-year-old male who presents complaining of cough, congestion, shortness of breath x1 week. Patient has a history of COPD. Patient is history of a CVA. Patient's significant other attempted to get patient in with pulmonology or PCP without success. Patient was sent here for chest x-ray and evaluation. MD elicited complaint: cough Related Data Home Medications Medication Instructions Recorded Confirmed clopidogrel 75 mg tablet 75 mg PO DAILY 11/05/19 11/08/20 aripiprazole [Abilify] 5 mg PO DAILY 10/18/20 11/08/20 gabapentin [Neurontin] 600 mg PO BID 10/18/20 11/08/20 sertraline [Zoloft] 200 mg PO DAILY 10/18/20 11/08/20 tamsulosin [Flomax] 0.4 mg PO DAILY 10/18/20 11/08/20 atorvastatin 80 mg PO DAILY 11/08/20 11/08/20 fluticasone propion-salmeterol 2 puff INHALATION DAILY 11/08/20 11/08/20 [Advair HFA] levetiracetam 500 mg PO BID 11/08/20 11/08/20 Allergies Allergy/AdvReac Type Severity Reaction Status Date / Time Penicillins Allergy Unknown unk Verified 11/08/20 09:58 nicotine [From Nicoderm CQ] AdvReac Hallucinati Verified 11/08/20 09:58 ng Review of Systems Review of Systems: CONSTITUTIONAL: Denies fever, chills, or sweats. EYES: Denies visual changes, redness, or discharge. ENT: Reports rhinorrhea, congestion, sore throat. CARDIOVASCULAR: Denies chest pain, palpitations, or edema. RESPIRATORY: Reports cough and dyspnea. GASTROINTESTINAL: Denies abdominal pain, nausea, vomiting, or diarrhea. GENITOURINARY: Denies dysuria or hematuria. SKIN: Denies rash or itching. MUSCULOSKELETAL: Denies back pain, joint pain, or myalgia. NEUROLOGIC: Denies headache, numbness, dizziness, or weakness. PSYCHIATRIC: Denies anxiety or depression. [facility] Past Medical History Medical History Benign prostatic hyperplasia Cerebrovascular accident (~03/2017) 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 Chronic obstructive pulmonary disease COPD exacerbation Degenerative disc disease Depression with anxiety Essential hypertension Gastroesophageal reflux disease Headache Hyperlipidemia Seizure disorder (~07/2016) Tobacco abuse Surgical History Surgical History History of inguinal hernia repair History of lumbar surgery (~03/2016) History of tonsillectomy History of vocal cord polypectomy Family History Family History Mother Hypertension Acute myocardial infarction Sibling Acute myocardial infarction Family history of lung cancer Father Acute myocardial infarction Social History Social History Social History: The patient lives in [place] with his significant other. He is and has 5 children. 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 He smokes about 1/3 of a pack of cigarettes per day and has for almost 50 years. He denies alcohol and illicit substance use. He designates his girlfriend, Ann-Marie Hoang, as his surrogate decision maker and he wishes to be a do not resuscitate. Smoking status: Current every day smoker Second hand tobacco smoke exposure: Yes Alcohol intake: never Substance use: never Gender identity (if verbalized by the patient): Male Spiritual care concerns: No Comments At the time of signature, I have reviewed and agree with nursing past medical, surgical, social, and family history unless otherwise noted. Please see nursing chart for further information. There is no relevant family history pertinent to the presenting complaint. Exam Narrative: GE
[2020-11-09 20:43] LABS: SARS-CoV-2 RNA PCR Negative
== END 2020-11-08 10:40 | disposition home or self-care (01) ==
PROVIDERS: Emergency Provider Nurse Practitioner; PCP Internal Medicine
DX: J18.1 Lobar pneumonia, unspecified organism (principal); Z20.822 Contact with and (suspected) exposure to COVID-19; F17.200 Nicotine dependence, unspecified, uncomplicated; N40.0 Benign prostatic hyperplasia without lower urinary tract symptoms; J44.9 Chronic obstructive pulmonary disease, unspecified; I10 Essential (primary) hypertension; K21.9 Gastro-esophageal reflux disease without esophagitis; E78.5 Hyperlipidemia, unspecified; I69.354 Hemiplegia and hemiparesis following cerebral infarction affecting left non-dominant side; F41.9 Anxiety disorder, unspecified; F32.9 Major depressive disorder, single episode, unspecified; G40.909 Epilepsy, unspecified, not intractable, without status epilepticus
CPT/HCPCS: 71046; 99213; C9803; G0463; U0003; U0005

== ENCOUNTER 2020-11-22 09:23 | Outpatient (CLI) | payer MEDICARE, OTHER, SELFPAY ==
--- NOTE | ~2020-11-22 | XR_ITS ---
XR chest 2V 11/22/2020 09:43 Indication: Pneumonia Procedure: 2 view chest Comparison: 11/08/2020 Findings: Left basilar airspace disease. Heart size normal. No significant effusion. The lungs are hy perinflated which is consistent with, but not diagnostic of chronic obstructive pulmonary disease. No pneumothorax. Impression: 1: Improving left basilar airspace disease, compatible with pneumonia. Reviewed, dictated and finalized at location A. Impression: 1: Improving left basilar airspace disease, compatible with pneumonia.
== END 2020-11-22 09:24 | disposition home or self-care (01) ==
LOC: ANHIMG 09:29
PROVIDERS: PCP Internal Medicine; Visit Provider Nurse Practitioner Family
DX: J18.9 Pneumonia, unspecified organism (principal)
CPT/HCPCS: 71046

== ENCOUNTER 2020-12-08 10:50 | Outpatient (CLI) | payer MEDICARE, OTHER, SELFPAY ==
--- NOTE | ~2020-12-08 | XR_ITS ---
XR chest 2V DATE: 12/08/2020 11:15 INDICATION: Pneumonia TECHNIQUE: PA and lateral views COMPARISON: 11/22/2020 PA and lateral chest FINDINGS: Left anterior chest wall vehicle monitor technician device. Septal closure device. Normal heart size. There is prominent bilateral hyperinflation and increased retrosternal airspace, flattening of the di aphragm, consistent with COPD. There is diminished left lower lung infiltrate or atelectasis since 11/22/2020; otherwise no pulmonary infiltrate or consolidation, pleural effusion or pulmonary vascular congestion or pneumothorax. Diffuse osteopenia. IMPRESSION: COPD; diminished left lower lung infiltrate or atelectasis since 11/22/2020 Reviewed, dictated and finalized at location A.
== END 2020-12-08 10:51 | disposition home or self-care (01) ==
LOC: ANHIMG 10:59
PROVIDERS: PCP Internal Medicine; Visit Provider Nurse Practitioner Family
DX: J18.9 Pneumonia, unspecified organism (principal); J44.9 Chronic obstructive pulmonary disease, unspecified
CPT/HCPCS: 71046